=== PATIENT | female | born 1960 | race Caucasian/White ===

== ENCOUNTER 2021-01-15 17:20 | Inpatient (IN) | payer MEDICARE, MEDICAID, SELFPAY ==
[2021-01-15] VITALS (8 sets, daily range): BP systolic 115–151; BP diastolic 50–87; PULSE 84–108; RESP 16–24; TEMP 37.1–38.8; O2SAT 82–100; BMI 39.1
--- NOTE | 2021-01-15 17:53 | XRR_ITS ---
PROCEDURE INFORMATION: Exam: XR Chest Exam date and time: 01/15/2021 5:53 PM Age: 60 years old Clinical indication: Cough and shortness of breath and other: Chills; Sternal or substernal pain; Prior surgery; Patient HX: Cp, SOB, cough, ex smoker TECHNIQUE: Imaging protocol: XR of the chest. Views: 1 view. COMPARISON: CR Chest 2 views* [id number] 05/05/2018 2:44 PM FINDINGS: Tubes, catheters and devices: There is a right-sided ventriculoperitoneal shunt catheter present. Lungs: Unremarkable. No consolidation. Pleural spaces: Unremarkable. No pleural effusion. No pneumothorax. Heart/Mediastinum: Unremarkable. No cardiomegaly. Bones/joints: Unremarkable. XR/XR chest 1V portable [id number] IMPRESSION: No acute pulmonary disease identified. Radiation Dose CTDIVOL = (mGy): DLP = (mGy-cm)
--- NOTE | 2021-01-15 17:53 | ECG_ITS ---
[facility] Test Date: 2021-01-15 Pat Name: Radha Abarca Department: Room: Gender: Female Feed Mixer: : 1960 Requested By: Juliet Martins Order Number: [id number] John MD: Chloe Leyva M.D. Measurements Intervals [place] Rate: 108 P: 52 [place]: 148 QRS: 83 QRSD: 87 T: 46 QT: 300 QTc: 404 Interpretive Statements SINUS TACHYCARDIA Compared to ECG 01/10/2018 08:39:12 T-wave abnormality no longer present Possible ischemia no longer present Electronically Signed On 01-16-2021 9:35:06 CDT by Chloe Leyva M.D. [id number]
[2021-01-15] MEDS: dexamethasone 10 mg/mL INJ 6 MG IVP (19:02)
[2021-01-15 19:03] LABS: Basophils % 0.2 %; Eosinophils % 0.1 %; Hematocrit 43.7 % (37.0-47.0); Hemoglobin 13.7 g/dL (11.5-15.3); Lymphocytes # 0.3 10^3/uL (0.8-4.8); Lymphocytes % 2.8 %; Mean Corpuscular HGB Conc 31.4 g/dL (30.0-36.0); Mean Corpuscular Hemoglobin 28.8 pg (28.0-34.0); Mean Platelet Volume 12.4 fL (7.4-10.4); Monocytes # 0.1 10^3/uL (0.2-0.9); Monocytes % 1.4 %; Neutrophils # 8.32 10^3/uL (1.8-7.7); Neutrophils % 94.7 %; Nucleated Red Blood Cells % 0 %; Platelet Count 165 10^3/cmm (130-400); Red Blood Count 4.75 10^6/uL (4.1-5.3); Red Cell Distribution Width 15.2 % (12.1-15.1); White Blood Count 8.8 10^3/uL (4.0-10.0)
--- NOTE | 2021-01-15 19:03 | CTR_ITS ---
PROCEDURE INFORMATION: Exam: CTA Chest With Contrast Exam date and time: 01/15/2021 7:03 PM Age: 60 years old Clinical indication: Shortness of breath; Chest pressure; Prior surgery; Surgery type: Gb. Shunt; Patient HX: Chest pain with SOB. 80% spo2 on room air. ; Additional info: Evaluate for pe/ pna TECHNIQUE: Imaging protocol: Computed tomographic angiography of the chest with contrast. 3D rendering (Not supervised by radiologist): MIP and/or 3D reconstructed images were created by the technologist. Radiation optimization: All CT scans at this facility use at least one of these dose optimization techniques: automated exposure control; mA and/or kV adjustment per patient size (includes targeted exams where dose is matched to clinical indication); or iterative reconstruction. Contrast material: OMNI 350; Contrast volume: 74 ml; Contrast route: INTRAVENOUS (IV); COMPARISON: CTA Chest-Pulmonary Emb [id number] 01/10/2018 8:04 AM RADIATION DOSE METRICS: Total DLP (mGy-cm): 641.8 FINDINGS: Tubes, catheters and devices: Right chest tunneled ventriculoperitoneal shunt catheter is present. Imaged portion intact. Pulmonary arteries: Normal. No pulmonary emboli. Aorta: Unremarkable. No aortic aneurysm. No aortic dissection. Lungs: Diffuse reticular interstitial lung changes. Negative for focal airspace consolidation. Negative for endobronchial obstruction. No bronchiectasis. No peripheral honeycombing. No significant septal thickening apparent. Pleural spaces: Unremarkable. No pneumothorax. No pleural effusion. Heart: Unremarkable. No cardiomegaly. No pericardial effusion. Lymph nodes: Unremarkable. No enlarged lymph nodes. Gallbladder and bile ducts: Cholecystectomy. Bones/joints: Unremarkable. No acute fracture. Soft tissues: Unremarkable. CT/CT angio chest PE protcl [id number] IMPRESSION: 1. Negative for pulmonary embolism. 2. No focal pneumonia identified. Radiation Dose CTDIVOL = (mGy): DLP = 641.8 (mGy-cm)
--- NOTE | 2021-01-15 19:12 | ED_ITS ---
HPI - General Adult General: Chief complaint: Shortness of Breath/Dyspnea Stated complaint: CHEST PAIN/SHAKING Time Seen by Provider: 01/15/21 18:08 History of Present Illness: HPI narrative: CC: Dyspnea HPI: This is a [60] yo full-code patient w/ hx of COPD BIBA acute dyspnea, fever, malaise since 1pm today. Patient was recently seen for 3 days of dysuria and groin pain and was prescribed ABX for UTI. Endorses chest pressure. Denies any pleuritic chest pain, recent surgery/immobilization/travel, or hematemesis or hx of VTE in the past. En route, patient was satting at 82% on RA with increased work of breath. Onset: 4 hrs ago Duration: ongoing for the last 4 hrs Location: home Severity: moderate Review of Systems Narrative: Constitutional: No fever, no chills. HEENT: No vision changes CV: +chest pressure, no palpitations PULM: +cough, +dyspnea GI: No abdominal pain, no N/V/D. : No dysuria MSKEL: No muscle pain SKIN: No new rashes, no lesions. NEURO: No headache, no focal weakness. HEME: No visible bruises PSYCH: Normal mood PFSH ED PFSH: Medical History (Updated 01/16/21 @ 12:12 by Oscar Frey MD) C. difficile colitis COPD (chronic obstructive pulmonary disease) since 2005 Hypothyroidism Intracranial hemorrhage 2011. Has GRAPE PICKER shunt. 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 Patient does not know when this was placed or indication for the filter. Sleep apnea Surgical History (Updated 01/16/21 @ 12:11 by Oscar Frey MD) History of appendectomy Hx of cholecystectomy S/P IVC filter S/P GRAPE PICKER shunt Social History (Updated 01/16/21 @ 03:04 by Mara Lopez MD) Smoking and tobacco status: heavy tobacco smoker Quit status (tobacco): has quit using tobacco Physical Exam Narrative: EXAM NARRATIVE: Head: Atraumatic Eyes: PERRL, conjunctiva without injection ENT: Mucous membrane moist NECK: Supple without lymphadenopathy LUNGS: Coarse breath sounds b/l, +increased work of breathing CV: Sinus tachycardia ABDOMEN: Soft, nontender in all quadrants EXTREMITY: Normal ROM, no lower extremity swellings, no nerissa sign SKIN: No rash or erythema NEURO: Awake and alert. No focal motor deficits. PSYCH: Normal mood and affect. Course Vital Signs: Vital signs: Vital Signs Temperature 97.7 F 01/16/21 20:00 Pulse Rate 100 01/16/21 20:00 Respiratory Rate 24 H 01/16/21 20:00 Blood Pressure 123/73 01/16/21 20:00 Pulse Oximetry 90 01/16/21 20:00 MDM - General Adult MDM Narrative: Medical decision making narrative: [60]yo with history of COPD presenting to the emergency room with sudden onset of dyspnea since 4 hours ago. On exam, she is noted to be tachypneic, with increased work of breathing and bilateral coarse breath sounds. Patient is febrile here to 100 degrees. Workup: CBC, BMP XR Chest, Troponin, EKG, BNP Intervention: decadron, Albuterol 2.5-5mg q20min x3 OR 15mg/hr. Ipratropium 0.5mg x1. BIPAP for respiratory support if significant increased work of breathing ECG: Nonischemic XR Chest: no findings of focal consolidations Lab findings: CBC and VBG are within normal limits. [9:35PM] On reassessment, the patient received decadron and duo-neb x 3. Patient is placed on bipap per request of RT for transiently increased work of breathing. CT negative for PE. Patient is transitioned for NRB. Will be placed in medsurg. No signs of respiratory decompensation. Disposition: Admission Lab Data: Labs: Lab Results 01/15/21 01/15/21 01/15/21 18:40 18:40 18:40 WBC 8.8 10^3/uL 10^3/ uL (4.0-10.0) RBC 4.75 10^6/uL 10^6 /uL (4.1-5.3) Hgb 13.7 g/dL g/dL (11.5-15.3) Hct 43.7 % % (37.0-47.0) MCV 92.0 fl fl (81-99) MCH 28.8 pg pg (28.0-34.0) MCHC 31.4 g/dL g/dL (30.0-36.0) RDW 15.2 % H % (12.1-15.1) Plt Count 165 10^3/cmm 10^3 /cmm (130-400) MPV 12.4 fL H fL (7.4-10.4) Neut % (Auto) 94.7 % % Lymph % (Auto) 2.8 % % Cannon % (Auto) 1.4 % % Eos % (Auto) 0.1 % % Baso % (Auto) 0.2 % % Neut # (Auto) 8.32 10^3/uL H 10 ^3/uL (1.8-7.7) Lymph # (Auto) 0.3 10^3/uL L 10^ 3/uL (0.8-4.8) Cannon # (Auto) 0.1 10^3/uL L 10^ 3/uL (0.2-0.9) Eos # (Auto) 0.0 10^3/uL 10^3/ uL (0.0-0.8) Baso # (Auto) 0.0 10^3/uL 10^3/ uL (0.0-0.1) Nucleated RBC % (a uto) 0 % % Nucleated RBCs # 0.0 /100WBC /100W BC PT INR APTT Fibrinogen D-Dimer Specimen Type Sample Site ABG pH ABG pCO2 ABG pO2 ABG HCO3 ABG Base Excess [place] Test Hematocrit O2 Delivery Device O2 Liters/Min [employer] Driver ID Sodium Cancelled Potassium Cancelled Chloride Cancelled Carbon Dioxide Cancelled Anion Gap Cancelled BUN Cancelled Creatinine Cancelled GFR Calculation Cancelled Glucose Cancelled Calculated Osmolal ity Cancelled Lactic Acid Lactate Calcium Cancelled Ferritin Cancelled Total Bilirubin Cancelled AST Cancelled ALT Cancelled Alkaline Phosphata se Cancelled Troponin T Baselin e Cancelled Troponin T 120 Min [place] Troponin T C-Reactive Protein Cancelled NT-Pro-B Natriuret Pep Cancelled Total Protein Cancelled Albumin Cancelled Globulin Cancelled Lipase Cancelled Procalcitonin Cancelled Nasal/Oral COVID-1 9 PCR SARS-CoV-2 Ag (Rap id) 01/15/21 01/15/21 01/15/21 18:40 18:40 18:40 WBC RBC Hgb Hct MCV MCH MCHC RDW Plt Count MPV Neut % (Auto) Lymph % (Auto) Cannon % (Auto) Eos % (Auto) Baso % (Auto) Neut # (Auto) Lymph # (Auto) Cannon # (Auto) Eos # (Auto) Baso # (Auto) Nucleated RBC % (a uto) Nucleated RBCs # PT Cancelled INR Cancelled APTT Cancelled Fibrinogen Cancelled D-Dimer Cancelled Specimen Type Sample Site ABG pH ABG pCO2 ABG pO2 ABG HCO3 ABG Base Excess [place] Test Hematocrit O2 Delivery Device O2 Liters/Min [employer] Driver ID Sodium Potassium Chloride Carbon Dioxide Anion Gap BUN Creatinine GFR Calculation Glucose Calculated Osmolal ity Lactic Acid Cancelled Lactate Calcium Ferritin Total Bilirubin AST ALT Alkaline Phosphata se Troponin T Baselin e Troponin T 120 Min [place] Troponin T C-Reactive Protein NT-Pro-B Natriuret Pep Total Protein Albumin Globulin Lipase Procalcitonin Nasal/Oral COVID-1 9 PCR SARS-CoV-2 Ag (Rap id) Negative (Negative) 01/15/21 01/15/21 01/15/21 18:40 19:20 19:20 WBC RBC Hgb Hct MCV MCH MCHC RDW Plt Count MPV Neut % (Auto) Lymph % (Auto) Cannon % (Auto) Eos % (Auto) Baso % (Auto) Neut # (Auto) Lymph # (Auto) Cannon # (Auto) Eos # (Auto) Baso # (Auto) Nucleated RBC % (a uto) Nucleated RBCs # PT INR APTT Fibrinogen D-Dimer Specimen Type Sample Site ABG pH ABG pCO2 ABG pO2 ABG HCO3 ABG Base Excess [place] Test Hematocrit O2 Delivery Device O2 Liters/Min [employer] Driver ID Sodium 141 mmol/L mmol/L (136-145) Potassium 4.2 mmol/L mmol/L (3.5-5.1) Chloride 101 mmol/L mmol/L (98-107) Carbon Dioxide 25 mmol/L mmol/L (22-29) Anion Gap 19.2 H (5-19) BUN 15 mg/dL mg/dL (8-23) Creatinine 0.8 mg/dL mg/dL (0.5-0.9) GFR Calculation 72.7 mL/min L mL/ min (90-130) Glucose 137 mg/dL H mg/dL (65-115) Calculated Osmolal ity 295 mOsm/kg mOsm/ kg (285-295) Lactic Acid Lactate Calcium 9.3 mg/dL mg/dL (8.5-10.5) Ferritin 246 ng/mL H ng/mL (15-150) Total Bilirubin 0.5 mg/dL mg/dL (0.15-1.2) AST 20 U/L U/L (0-32) ALT 18 U/L U/L (0-33) Alkaline Phosphata se 63 IU/L IU/L (35-105) Troponin T Baselin e 6 ng/L ng/L (0-10) Troponin T 120 Min [place] Troponin T C-Reactive Protein 188.3 mg/L H mg/L (0.0-4.9) NT-Pro-B Natriuret Pep 57 pg/mL pg/mL (0-125) Total Protein 6.6 g/dL g/dL (6.6-8.7) Albumin 3.7 g/dL g/dL (3.5-5.2) Globulin 2.9 g/dL g/dL (1.3-4.6) Lipase Procalcitonin 1.94 ng/mL H ng/m L (0-0.5) Nasal/Oral COVID-1 9 PCR Not detected SARS-CoV-2 Ag (Rap id) 01/15/21 01/15/21 01/15/21 19:20 19:20 21:18 WBC RBC Hgb Hct MCV MCH MCHC RDW Plt Count MPV Neut % (Auto) Lymph % (Auto) Cannon % (Auto) Eos % (Auto) Baso % (Auto) Neut # (Auto) Lymph # (Auto) Cannon # (Auto) Eos # (Auto) Baso # (Auto) Nucleated RBC % (a uto) Nucleated RBCs # PT 13.80 SECONDS SEC ONDS (12.1-14.9) INR 1.03 (0.8-1.2) APTT 27.1 SECONDS SECO NDS (23.9-36.7) Fibrinogen D-Dimer Specimen Type Sample Site ABG pH ABG pCO2 ABG pO2 ABG HCO3 ABG Base Excess [place] Test Hematocrit O2 Delivery Device O2 Liters/Min [employer] Driver ID Sodium Potassium Chloride Carbon Dioxide Anion Gap BUN Creatinine GFR Calculation Glucose Calculated Osmolal ity Lactic Acid Lactate 1.3 mmol/L mmol/L (0.5-2.2) Calcium Ferritin Total Bilirubin AST ALT Alkaline Phosphata se Troponin T Baselin e Troponin T 120 Min [place] 6.68 ng/L ng/L (0-10) Delta Troponin T 0.68 ABS# ABS# (0-10) C-Reactive Protein NT-Pro-B Natriuret Pep Total Protein Albumin Globulin Lipase Procalcitonin Nasal/Oral COVID-1 9 PCR SARS-CoV-2 Ag (Rap id) 01/15/21 23:31 WBC RBC Hgb Hct MCV MCH MCHC RDW Plt Count MPV Neut % (Auto) Lymph % (Auto) Cannon % (Auto) Eos % (Auto) Baso % (Auto) Neut # (Auto) Lymph # (Auto) Cannon # (Auto) Eos # (Auto) Baso # (Auto) Nucleated RBC % (a uto) Nucleated RBCs # PT INR APTT Fibrinogen D-Dimer Specimen Type Arterial Sample Site Radial, left ABG pH 7.35 (7.35-7.45) ABG pCO2 49.5 mmHg H mmHg (35-45) ABG pO2 124.0 mmHg H mmHg (80.0-100.0) ABG HCO3 27.3 mmol/L H mmo l/L (22-26) ABG Base Excess 1.0 mmol/L mmol/L (-2.0-2.0) [place] Test Pos Hematocrit 39.9 % % (37-47) O2 Delivery Device Oxy mask O2 Liters/Min 10.0 % % Cement Truck Driver ID [email or web address] Sodium Potassium Chloride Carbon Dioxide Anion Gap BUN Creatinine GFR Calculation Glucose Calculated Osmolal ity Lactic Acid Lactate Calcium Ferritin Total Bilirubin AST ALT Alkaline Phosphata se Troponin T Baselin e Troponin T 120 Min [place] Troponin T C-Reactive Protein NT-Pro-B Natriuret Pep Total Protein Albumin Globulin Lipase Procalcitonin Nasal/Oral COVID-1 9 PCR SARS-CoV-2 Ag (Rap id) Imaging Data^: Other Imaging: Radiologist's impression: [address] [id number] ReportSigned Patient: Radha Abarca #: [id number]: 9Acct#:[id number]/Sex: 60 / FADM Date: 01/15/21Loc: ERRoom/Bed:Attending Dr: Ordering Provider/Ordering MD: Juliet Martins MD Date of Service: 01/15/21 Procedure(s): XR chest 1V portable [id number] Accession Number(s): [id number] Report Number: [id number] PROCEDURE INFORMATION: Exam: XR Chest Exam date and time: 01/15/2021 5:53 PM Age: 60 years old Clinical indication: Cough and shortness of breath and other: Chills; Sternal or substernal pain; Prior surgery; Patient HX: Cp, SOB, cough, ex smoker TECHNIQUE: Imaging protocol: XR of the chest. Views: 1 view. COMPARISON: CR Chest 2 views* [id number] 05/05/2018 2:44 PM FINDINGS: Tubes, catheters and devices: There is a right-sided ventriculoperitoneal shunt catheter present. Lungs: Unremarkable. No consolidation. Pleural spaces: Unremarkable. No pleural effusion. No pneumothorax. Heart/Mediastinum: Unremarkable. No cardiomegaly. Bones/joints: Unremarkable. XR/XR chest 1V portable [id number] IMPRESSION: No acute pulmonary disease identified. Radiation Dose CTDIVOL = (mGy): DLP = (mGy-cm) Dictated By:Adam LandisinSkiara By:Akira Landis Date/Time:01/15/21 185DD/ [address] [id number] Scan ReportSigned Patient: Radha Abarca #: [id number]: 9[facility]#:[id number]/Sex: 60 / FADM Date: 01/15/21Loc: ERRoom/Bed:Attending Dr: Ordering Provider/Ordering MD: Alex Gold MD Date of Service: 01/15/21 Procedure(s): CT angio chest PE protcl [id number] Accession Number(s): [id number] Report Number: [id number] PROCEDURE INFORMATION: Exam: CTA Chest With Contrast Exam date and time: 01/15/2021 7:03 PM Age: 60 years old Clinical indication: Shortness of breath; Chest pressure; Prior surgery; Surgery type: Gb. Shunt; Patient HX: Chest pain with SOB. 80% spo2 on room air. ; Additional info: Evaluate for pe/ pna TECHNIQUE: Imaging protocol: Computed tomographic angiography of the chest with contrast. 3D rendering (Not supervised by radiologist): MIP and/or 3D reconstructed images were created by the technologist. Radiation optimization: All CT scans at this facility use at least one of these dose optimization techniques: automated exposure control; mA and/or kV adjustment per patient size (includes targeted exams where dose is matched to clinical indication); or iterative reconstruction. Contrast material: OMNI 350; Contrast volume: 74 ml; Contrast route: INTRAVENOUS (IV); COMPARISON: CTA Chest-Pulmonary Emb [id number] 01/10/2018 8:04 AM RADIATION DOSE METRICS: Total DLP (mGy-cm): 641.8 FINDINGS: Tubes, catheters and devices: Right chest tunneled ventriculoperitoneal shunt catheter is present. Imaged portion intact. Pulmonary arteries: Normal. No pulmonary emboli. Aorta: Unremarkable. No aortic aneurysm. No aortic dissection. Lungs: Diffuse reticular interstitial lung changes. Negative for focal airspace consolidation. Negative for endobronchial obstruction. No bronchiectasis. No peripheral honeycombing. No significant septal thickening apparent. Pleural spaces: Unremarkable. No pneumothorax. No pleural effusion. Heart: Unremarkable. No cardiomegaly. No pericardial effusion. Lymph nodes: Unremarkable. No enlarged lymph nodes. Gallbladder and bile ducts: Cholecystectomy. Bones/joints: Unremarkable. No acute fracture. Soft tissues: Unremarkable. CT/CT angio chest PE protcl [id number] IMPRESSION: 1. Negative for pulmonary embolism. 2. No focal pneumonia identified. Radiation Dose CTDIVOL = (mGy): DLP = 641.8 (mGy-cm) Dictated By:Akira Landis By:Akira Landis Date/Time:01/15/212119DD/ 02 Discharge Plan Discharge Patient Disposition: Admitted As Inpatient Admit Provider: Mara Lopez Clinical Impression: Hypoxemia, Acute dyspnea Condition: Stable Coding Level of Care Code ED Kiln Stacker for Evens Christie
[2021-01-15 19:28] LABS: SARS Covid-2 Antigen Negative (Negative)
[2021-01-15] MEDS: sodium chloride 0.9% 1,000 ML 999 ML IV (19:51)
[2021-01-15 19:53] LABS: INR 1.03 (0.8-1.2)
[2021-01-15 19:54] LABS: Partial Thromboplastin Time 27.1 SECONDS (23.9-36.7)
[2021-01-15 20:05] LABS: Lactate (Lactic Acid level) 1.3 mmol/L (0.5-2.2); Troponin(5th) Baseline 6 ng/L (0-10)
[2021-01-15 20:16] LABS: NT Pro B Type Natriuretic Pept 57 pg/mL (0-125); Procalcitonin 1.94 ng/mL (0-0.5)
[2021-01-15 20:27] LABS: Alanine Aminotransferase 18 U/L (0-33); Albumin Level 3.7 g/dL (3.5-5.2); Alkaline Phosphatase 63 IU/L (35-105); Anion Gap 19.2 (5-19); Aspartate Amino Transferase 20 U/L (0-32); Blood Urea Nitrogen 15 mg/dL (8-23); C Reactive Protein 188.3 mg/L (0.0-4.9); Calcium 9.3 mg/dL (8.5-10.5); Carbon Dioxide 25 mmol/L (22-29); Chloride 101 mmol/L (98-107); Ferritin 246 ng/mL (15-150); Globulin 2.9 g/dL (1.3-4.6); Glomerular Filtration Rate 72.7 mL/min (90-130); Glucose 137 mg/dL (65-115); Osmolality Calculated 295 mOsm/kg (285-295); Potassium 4.2 mmol/L (3.5-5.1); Sodium 141 mmol/L (136-145); Total Bilirubin 0.5 mg/dL (0.15-1.2); Total Protein 6.6 g/dL (6.6-8.7)
[2021-01-15] MEDS: iohexol 350 mg/mL 100 mL Btl IV (21:11)
[2021-01-15 21:47] LABS: Troponin 5 2HR 6.68 ng/L (0-10); Troponin 5 2HR Delta 0.68 ABS# (0-10)
[2021-01-15 23:42] LABS: ABG PCO2 49.5 mmHg (35-45); ABG PH Result 7.35 (7.35-7.45); Arterial Blood Gas Hematocrit 39.9 % (37-47); Blood Gas Allen Test Pos; Blood Gas Sample Type Arterial; HCO3 ABG 27.3 mmol/L (22-26)
[2021-01-15 23:43] LABS: Blood Gas Sample Site Radial, left; Oxygen Device OXY MASK
--- NOTE | 2021-01-15 23:53 | ECG_ITS ---
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 Measurements Intervals [place] Rate: 95 P: 70 [place]: 169 QRS: 82 QRSD: 97 T: 52 QT: 339 QTc: 428 Interpretive Statements SINUS RHYTHM Compared to ECG 01/15/2021 18:17:02 Sinus tachycardia no longer present Electronically Signed On 01-16-2021 9:40:53 CDT by Chloe Leyva M.D. [id number]
--- NOTE | 2021-01-15 23:57 | CTR_ITS ---
PROCEDURE INFORMATION: Exam: CT Abdomen And Pelvis Without Contrast Exam date and time: 01/15/2021 11:57 PM Age: 60 years old Clinical indication: Nausea and vomiting; Abdominal pain; Localized; Prior surgery; Surgery type: Appy. Gb. ; Patient HX: Left side abd pain with n/v. ; Additional info: Abdominal pain, vomiting, left flank tenderness TECHNIQUE: Imaging protocol: Computed tomography of the abdomen and pelvis without contrast. Radiation optimization: All CT scans at this facility use at least one of these dose optimization techniques: automated exposure control; mA and/or kV adjustment per patient size (includes targeted exams where dose is matched to clinical indication); or iterative reconstruction. COMPARISON: CR Hip 2-3v RIGHT wwo Pelv* [id number] 10/19/2016 12:03 PM RADIATION DOSE METRICS: Total DLP (mGy-cm): 1809.53 FINDINGS: Tubes, catheters and devices: Tunneled ventriculoperitoneal shunt catheter terminates in the midline of the pelvis. Liver: Normal. No mass. Gallbladder and bile ducts: Cholecystectomy. Nondilated biliary system. Pancreas: Normal. No ductal dilation. Spleen: Normal. No splenomegaly. Adrenal glands: Normal. No mass. Kidneys and ureters: Normal. No hydronephrosis. Stomach and bowel: Extensive inflammatory bowel wall thickening changes noted focally in the proximal sigmoid colon. Diverticulosis. Pericolonic fat stranding. Appendix: No evidence of appendicitis. Intraperitoneal space: Unremarkable. No free air. No significant fluid collection. Vasculature: Infrarenal IVC filter is present. Filter struts perforation through the IVC wall. One of the struts may be in contact with the anterior wall of the distal abdominal aorta. Abdominal aorta is nonaneurysmal with scattered atherosclerotic plaque. Lymph nodes: Unremarkable. No enlarged lymph nodes. Urinary bladder: Unremarkable as visualized. Reproductive: Unremarkable as visualized. Bones/joints: Old, healed right posterior rib fracture deformities. Soft tissues: Unremarkable. CT/CT kidney stone [id number] IMPRESSION: Inflammatory or infectious disease process in the proximal sigmoid colon. Favor sequela of acute diverticulitis. COMMENTS: For patients with an IVC filter, recommend assessment for a management plan for the patient's IVC filter. If there is no established management plan, recommend referral to an interventional clinician on a nonemergent basis for evaluation. Radiation Dose CTDIVOL = (mGy): DLP = 1809.53 (mGy-cm)
[2021-01-16] VITALS (12 sets, daily range): BP systolic 108–123; BP diastolic 65–88; PULSE 86–115; RESP 16–24; TEMP 36.5–36.9; O2SAT 85–98
--- NOTE | 2021-01-16 02:39 | PM.HP ---
Providers/Chief Complaint Admitting Physician: Mara Lopez MD Primary Care Provider: Vel Powell MD Chief Complaint: CHEST PAIN/SHAKING History of Present Illness Radha Abarca is a 60 year old female With a past medical history of COPD, obstructive sleep apnea, on CPAP, uses 2 L/min chronically at nighttime, intermittently during the day uses as needed oxygen if she feels short of breath, reports O2 sats dropped down in the 80s upon exertion. She presents to the emergency room today with chief complaints of abdominal pain. She states that the pain started in the suprapubic area this morning, radiated onto the left side. Denies any dysuria, interruption in urinary stream. Visited with her primary care physician this afternoon, dipstick UA was reportedly normal, culture was sent and she was given a prescription for Bactrim. Upon returning home she continued to experience abdominal pain and had 3-4 episodes of vomiting. Thereafter also developed chest discomfort radiating into her back and shoulder blades which made her concerned and she was brought to the emergency room. Upon arrival oxygen saturation was noted to be 82% on room air, CTA of the chest was performed which was negative for PE. She was febrile with fever to 102 Fahrenheit at home, reports being febrile at home also earlier today. Has a past medical history of C. difficile. Currently denies any diarrhea. She has been more recently constipated and has been using laxatives. Denies any cough, expectoration. Thus far she has received tylenol and dexamethasone 6 mg IV in ER for presumed Covid. CT chest without any consolidation. Patient is vaccinated with 2 dose moderna mRNA series completed May 2020. An abdominal CT was performed later during the course of my assessment on which patient is found to have evidence of sigmoid diverticulitis. Incidentally noted to also have perforation of the IVC wall with IVC filter, discussed with radiologist as being a nonacute finding. No compromise of the aorta. Review of Systems General: Reports: 10 or more systems reviewed and unremarkable except in HPI and below Const: Reports: fever(s) and chills; Denies: body aches Eyes: Denies: change in vision, blurry vision or photophobia ENMT: Reports: hoarseness; Denies: throat pain, enlarged tonsils, odynophagia or nasal congestion Card: Denies: chest pain, palpitations, irregular heart rhythm, edema, swelling of feet/ankles, lightheadedness, pre-syncope, dyspnea on exertion or orthopnea Resp: Denies: dyspnea, productive cough, non-productive cough, wheezing, stridor, pain on inspiration, change in phlegm color, hemoptysis or chest congestion GI: Reports: abdominal pain, nausea, vomiting and GI cramping; Denies: hematemesis, coffee ground emesis, dysphagia, heartburn, diarrhea, constipation, change in stool character, hematochezia or melena : Denies: flank pain, difficulty voiding, dysuria, urinary frequency, urinary urgency, urinary hesitancy or hematuria Musc: Denies: neck pain, back pain, extremity pain, joint swelling, joint warmth or deformity Neuro: Denies: headache(s), numbness in extremities, weakness in extremities, sensory changes, difficulty walking, frequent falls, dizziness, vertigo, behavioral changes, Slurred speech present or seizure-like activity Psych: Denies: anxiety, depression, suicidal ideation or homicidal ideation Endo: Denies: polyuria, polydipsia, tired all the time, cold intolerance or hot flashes Jerry/Lymph: Denies: easy bruising or easy bleeding Medications/Allergies Allergies Allergy/AdvReac Type Severity Reaction Status Date / Time acetaminophen [From Tylenol] Allergy ALGY-Hives Verified 01/16/21 03:12 PFSH Acute PFSH: Medical History (Updated 01/16/21 @ 03:11 by Mara Lopez MD) COPD (chronic obstructive pulmonary disease) since 2005 Hypothyroidism Intracranial hemorrhage 2011. Has ASSEMBLER BILLIARD TABLE shunt. 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 Patient does not know when this was placed or indication for the filter. Sleep apnea Surgical History (Updated 01/16/21 @ 03:04 by Mara Lopez MD) History of appendectomy Hx of cholecystectomy Social History (Updated 01/16/21 @ 03:04 by Mara Lopez MD) Smoking and tobacco status: heavy tobacco smoker Quit status (tobacco): has quit using tobacco Vitals/I&O/Wt Last Vital Signs Temp 98.8 F 01/15/21 22:58 Pulse 86 01/15/21 23:00 Resp 18 01/15/21 22:58 BP 122/70 01/15/21 23:00 Pulse Ox 99 01/15/21 23:00 Weight last 48 hrs Weight 113.398 kg Physical Exam Narrative: EXAM NARRATIVE: General: No acute distress, AO x3, clothes stained with vomitus HEENT: PERRLA, pupils bilaterally equal and reactive, pallors not present Chest: Normal vesicular breath sounds, no added sounds, equal good air entry bilaterally CVS: S1-S2 regular, no murmurs, no tachycardia, no gallops, no rubs Abdomen: Soft, non distended, TTP left lower quadrant and suprapubic area Neuro: No focal deficits, no facial deformity, AO x3, power 5/5 in all limbs EXt: no edema, clubbing or cyanosis Data : 01/15/21 18:40 01/15/21 19:20 Other Labs: 01/15/21 23:31 ABG pH 7.35 ABG pCO2 49.5 H ABG pO2 124.0 H ABG HCO3 27.3 H ABG Base Excess 1.0 Attestation for Other Data: I personally reviewed and interpreted the following: Other data: Laboratory Results WBC 8.8 10^3/uL (4.0-10.0) 01/15/21 18:40 RBC 4.75 10^6/uL (4.1-5.3) 01/15/21 18:40 Hgb 13.7 g/dL (11.5-15.3) 01/15/21 18:40 Hct 43.7 % (37.0-47.0) 01/15/21 18:40 MCV 92.0 fl (81-99) 01/15/21 18:40 MCH 28.8 pg (28.0-34.0) 01/15/21 18:40 MCHC 31.4 g/dL (30.0-36.0) 01/15/21 18:40 RDW 15.2 % (12.1-15.1) H 01/15/21 18:40 Plt Count 165 10^3/cmm (130-400) 01/15/21 18:40 MPV 12.4 fL (7.4-10.4) H 01/15/21 18:40 Neut % (Auto) 94.7 % 01/15/21 18:40 Lymph % (Auto) 2.8 % 01/15/21 18:40 Harnett % (Auto) 1.4 % 01/15/21 18:40 Eos % (Auto) 0.1 % 01/15/21 18:40 Baso % (Auto) 0.2 % 01/15/21 18:40 Neut # (Auto) 8.32 10^3/uL (1.8-7.7) H 01/15/21 18:40 Lymph # (Auto) 0.3 10^3/uL (0.8-4.8) L 01/15/21 18:40 [place]ett # (Auto) 0.1 10^3/uL (0.2-0.9) L 01/15/21 18:40 Eos # (Auto) 0.0 10^3/uL (0.0-0.8) 01/15/21 18:40 Baso # (Auto) 0.0 10^3/uL (0.0-0.1) 01/15/21 18:40 Nucleated RBC % (auto) 0 % 01/15/21 18:40 Nucleated RBCs # 0.0 /100WBC 01/15/21 18:40 PT 13.80 SECONDS (12.1-14.9) 01/15/21 19:20 INR 1.03 (0.8-1.2) 01/15/21 19:20 APTT 27.1 SECONDS (23.9-36.7) 01/15/21 19:20 Fibrinogen Cancelled 01/15/21 18:40 D-Dimer Cancelled 01/15/21 18:40 Specimen Type Arterial 01/15/21 23:31 Sample Site Radial, left 01/15/21 23:31 ABG pH 7.35 (7.35-7.45) 01/15/21 23:31 ABG pCO2 49.5 mmHg (35-45) H 01/15/21 23:31 ABG pO2 124.0 mmHg (80.0-100.0) H 01/15/21 23:31 ABG HCO3 27.3 mmol/L (22-26) H 01/15/21 23:31 ABG Base Excess 1.0 mmol/L (-2.0-2.0) 01/15/21 23:31 [place] Test Pos 01/15/21 23:31 Hematocrit 39.9 % (37-47) 01/15/21 23:31 O2 Delivery Device Oxy mask 01/15/21 23:31 O2 Liters/Min 10.0 % 01/15/21 23:31 Golf Caddy ID [email or web address] 01/15/21 23:31 Sodium 141 mmol/L (136-145) 01/15/21 19:20 Potassium 4.2 mmol/L (3.5-5.1) 01/15/21 19:20 Chloride 101 mmol/L (98-107) 01/15/21 19:20 Carbon Dioxide 25 mmol/L (22-29) 01/15/21 19:20 Anion Gap 19.2 (5-19) H 01/15/21 19:20 BUN 15 mg/dL (8-23) 01/15/21 19:20 Creatinine 0.8 mg/dL (0.5-0.9) 01/15/21 19:20 GFR Calculation 72.7 mL/min (90-130) L 01/15/21 19:20 Glucose 137 mg/dL (65-115) H 01/15/21 19:20 Calculated Osmolality 295 mOsm/kg (285-295) 01/15/21 19:20 Lactic Acid Cancelled 01/15/21 18:40 Lactate 1.3 mmol/L (0.5-2.2) 01/15/21 19:20 Calcium 9.3 mg/dL (8.5-10.5) 01/15/21 19:20 Ferritin 246 ng/mL (15-150) H 01/15/21 19:20 Total Bilirubin 0.5 mg/dL (0.15-1.2) 01/15/21 19:20 AST 20 U/L (0-32) 01/15/21 19:20 ALT 18 U/L (0-33) 01/15/21 19:20 Alkaline Phosphatase 63 IU/L (35-105) 01/15/21 19:20 Troponin T Baseline 6 ng/L (0-10) 01/15/21 19:20 Troponin T 120 Minute 6.68 ng/L (0-10) 01/15/21 21:18 Delta Troponin T 0.68 ABS# (0-10) 01/15/21 21:18 C-Reactive Protein 188.3 mg/L (0.0-4.9) H 01/15/21 19:20 NT-Pro-B Natriuret Pep 57 pg/mL (0-125) 01/15/21 19:20 Total Protein 6.6 g/dL (6.6-8.7) 01/15/21 19:20 Albumin 3.7 g/dL (3.5-5.2) 01/15/21 19:20 Globulin 2.9 g/dL (1.3-4.6) 01/15/21 19:20 Lipase Cancelled 01/15/21 18:40 Procalcitonin 1.94 ng/mL (0-0.5) H 01/15/21 19:20 SARS-CoV-2 Ag (Rapid) Negative (Negative) 01/15/21 18:40 Impressions Chest X-Ray 01/15/21 17:53 IMPRESSION: No acute pulmonary disease identified. Radiation Dose CTDIVOL = (mGy): DLP = (mGy-cm) Chest CTA 01/15/21 19:03 IMPRESSION: 1. Negative for pulmonary embolism. 2. No focal pneumonia identified. Radiation Dose CTDIVOL = (mGy): DLP = 641.8 (mGy-cm) Abdomen/Pelvis CT 01/15/21 23:57 IMPRESSION: Inflammatory or infectious disease process in the proximal sigmoid colon. Favor sequela of acute diverticulitis. COMMENTS: For patients with an IVC filter, recommend assessment for a management plan for the patient's IVC filter. If there is no established management plan, recommend referral to an interventional clinician on a nonemergent basis for evaluation. Radiation Dose CTDIVOL = (mGy): DLP = 1809.53 (mGy-cm) ADDENDUM: 01/16/21 0239 01/16/2021 2:35 AM CDT ADDENDUM: I personally discussed Dr. Lopez's concerns about the IVC filter and adjacent aorta with her at the time of this addendum. I mentioned that there is no current acute disease in the area and that it is common for the struts of IVC filters to extend through the IVC bobby. Radiation Dose CTDIVOL = (mGy): DLP = 1809.53 (mGy-cm) A&P Assessment and plan (1) Sepsis: Meet sepsis criteria by way of fever, tachycardia, source of infection with diverticulitis. Start patient on empiric antibiotic coverage with piperacillin tazobactam. Start IV fluids normal saline at 75 cc an hour. Check blood culture Status: Acute Qualifiers: Sepsis type: sepsis due to unspecified organism Sepsis acute organ dysfunction status: without acute organ dysfunction Qualified Code(s): A41.9 - Sepsis, unspecified organism (2) Sigmoid diverticulitis: Sepsis likely as a result of sigmoid diverticulitis as seen on CT, compatible clinical picture with pain over the left lower quadrant and acute onset of symptoms. Currently denies any diarrhea, has been constipated the past few days. Currently passing flatus. No reports of blood in stool. Empiric antibiotic coverage as above. Bowel rest with n.p.o., advance diet in am to clears if able to tolerate. pain control with prn morphine zofran for vomiting Status: Acute (3) Chronic hypoxemic respiratory failure: Upon arrival noted to have chest pain and Sp02 82% EKG series without acute ST-T wave chnages, trop negative at baseline and 2 hrs, unlikely ACS CTA chest negative for PE Patient reports a h/o COPD and chronic hypoxia, uses 2lpm supplemental 02 at night in addition to as needed oxygen in day time for symptomatic dyspnea. At home 02 sat drops to 80s with exertion. Her hypoxia today appears to be related to COPD and a chronic process. ABG with p02 124, no respiratory acidosis. No evidence of consolidation on CT chest. No signs of pneumonitis. COVID PCR pending, given no involvement of lower respiratory tract and alternate explanation for symptoms, hold off on presumptive steroids. Status: Acute (4) COPD (chronic obstructive pulmonary disease): not currently exacerbated. duoneb q6h sheduled nebulization Status: Acute Qualifiers: COPD type: unspecified COPD Qualified Code(s): J44.9 - Chronic obstructive pulmonary disease, unspecified Additional A&P Information Incidental note made on CT abdomen for erosion of IVC filter struts through IVC wall, nearly touching the aorta. No extravasation of blood. No aortic compromise. Discussed with radiologist that no emergent process identified. WIll eventually need referral to vascular surgery for removal. Patient was not aware she had an IVC filter, does not know indication for the same. 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
[2021-01-16] MEDS: enoxaparin 40 mg/0.4 mL Syringe SUBCUT (03:38)
[2021-01-16] MEDS: sodium chloride 0.9% 1,000 ML 75 ML IV ×2 (03:38→15:54)
[2021-01-16] MEDS: piperacillin-tazobactam 3.375 GM in sodium chloride 0.9% (plus) 50 ML IV ×3 (03:40→18:50)
[2021-01-16 06:38] LABS: Basophils % 0.2 %; Eosinophils % 0.1 %; Hemoglobin 12.6 g/dL (11.5-15.3); Lymphocytes # 0.2 10^3/uL (0.8-4.8); Lymphocytes % 1.9 %; Mean Corpuscular HGB Conc 30.7 g/dL (30.0-36.0); Mean Corpuscular Hemoglobin 29.2 pg (28.0-34.0); Mean Corpuscular Volume 94.9 fl (81-99); Mean Platelet Volume 12.4 fL (7.4-10.4); Monocytes # 0.3 10^3/uL (0.2-0.9); Monocytes % 2.7 %; Neutrophils # 10.01 10^3/uL (1.8-7.7); Neutrophils % 94.3 %; Nucleated Red Blood Cells % 0 %; Platelet Count 149 10^3/cmm (130-400); Red Blood Count 4.32 10^6/uL (4.1-5.3); White Blood Count 10.6 10^3/uL (4.0-10.0)
[2021-01-16 07:00] LABS: Alanine Aminotransferase 16 U/L (0-33); Albumin Level 3.3 g/dL (3.5-5.2); Alkaline Phosphatase 52 IU/L (35-105); Anion Gap 16.2 (5-19); Aspartate Amino Transferase 16 U/L (0-32); Blood Urea Nitrogen 16 mg/dL (8-23); Calcium 8.8 mg/dL (8.5-10.5); Carbon Dioxide 24 mmol/L (22-29); Chloride 101 mmol/L (98-107); Globulin 3.7 g/dL (1.3-4.6); Glomerular Filtration Rate 56.2 mL/min (90-130); Glucose 149 mg/dL (65-115); Magnesium 1.8 mg/dL (1.7-2.3); Osmolality Calculated 288 mOsm/kg (285-295); Potassium 4.2 mmol/L (3.5-5.1); Sodium 137 mmol/L (136-145); Total Bilirubin 0.4 mg/dL (0.15-1.2)
[2021-01-16] MEDS: morphine 4 mg/mL SDV 1 mL 2 MG IVP ×2 (08:13→22:56)
[2021-01-16] MEDS: pantoprazole DR 40 mg Tablet PO (08:14)
--- NOTE | 2021-01-16 09:44 | USCV_ITS ---
Tevin Radha Age: 60 Gender: F : 1960 Exam Date: 01/16/2021 14:03 Ordering Phys: Oscar Frey MD Technologist: Exam Location: [facility] [place] Indication: SOB CP BP: 130 / 75 HR: 100 Rhythm: Sinus Technical Quality: Adequate MEASUREMENTS (Male / Female) Normal Values 2D ECHO LV Diastolic Diameter PLAX 4.1 cm 4.2 - 5.9 / 3.9 - 5.3 cm LV Systolic Diameter PLAX 3.0 cm IVS Diastolic Thickness 1.2 cm 0.6 - 1.0 / 0.6 - 0.9 cm IVS Systolic Thickness 1.5 cm LVPW Diastolic Thickness 1.1 cm 0.6 - 1.0 / 0.6 - 0.9 cm LVPW Systolic Thickness 1.3 cm LVOT Diameter 2.0 cm LV Ejection Fraction 2D Teich 48.8 % LV Ejection Fraction MOD 2C 68.6 % LV Ejection Fraction 2C AL 69.3 % LA Diameter 3.6 cm LA Width 3.8 cm LA Height 5.0 cm RA Width 3.5 cm RA Height 4.4 cm DOPPLER AV Peak Velocity 132.0 cm/s LVOT Peak Velocity 101.0 cm/s AV Area Cont Eq vti 2.6 cm squared AV Area Cont Eq pk 2.5 cm squared MV Area PHT 5.0 cm squared Mitral E to A Ratio 0.9 MV E' Velocity 93.0 cm/s TR Peak Velocity 226.7 cm/s TR Peak Gradient 20.6 mmHg TV Peak E Velocity 98.0 cm/s Right Atrial Pressure 3.0 mmHg Pulmonary Artery Systolic Pressu 23.6 mmHg FINDINGS Left Ventricle Normal left ventricular size. LV systolic function is normal with EF of 55-60%. no regional wall motion abnormalities. Grade 1 diastolic dysfunction Right Ventricle The right ventricle is normal in size and function. Right Atrium The right atrium is normal in size. Left Atrium The left atrium is normal in size. Mitral Valve Structurally normal mitral valve without significant stenosis or prolapse. There is no mitral regurgitation. Aortic Valve Structurally normal aortic valve without significant sclerosis or stenosis. There is no aortic regurgitation. Tricuspid Valve Structurally normal tricuspid valve without significant stenosis or regurgitation. Insufficient TR jet to calculate RVSP Pulmonic Valve Not well visualized Pericardium Normal pericardium without effusion. Aorta Normal ascending aorta dimension. CONCLUSIONS LV systolic function is normal with EF of 55-60% Grade 1 diastolic dysfunction No significant valvular heart disease noted Compared to prior echocardiogram from 2019, no significant changes are noted Car Hayes MD (Electronically Signed) Final Date: 17 January 2021 12:58 S
--- NOTE | 2021-01-16 10:41 | PC.PHAR ---
pt states she takes care of her own medications
--- NOTE | 2021-01-16 11:16 | PC.CHAP ---
Pastoral Care Encounter/Spiritual Assessment Type of Contact [] Declined mandarin chinese teacher visit [] Patient/Family/Request visit [] Outpatient visit [] Follow-up visit [] Physician referral [] Code/Alert [x] Routine visit [] Staff referral [] Actively dying [] Patient sleeping [] Family support [] [] Out of room [] Palliative care [] [] Receiving care in room [] Pre-surgical visit [] Trauma [] Long length of stay [] ICU visit [x] Other: isolated Relational/Emotional Strength [] Patient feels connected with others/family/visitors/staff [] Distress [] Loneliness/isolation [] Abandonment Spirituality of Patient [] Person of Millie [] Attends Druze of their Millie [] Believes in Prayer [] Reads Bible or Bahai materials [] There are Spiritual issues to be addressed Bench Worker Hollow Handle Interventions [x] Prayer [] Active listening [] Non-anxious presence [] Spiritual/emotional support [] Crisis/trauma care [] Spiritual counseling [] Bereavement support [] Provided bereavement packet [] Provided Bible/devotional materials [] Provided toy/stuffed animal, coloring book to patient or family member [] Provided Communion [] Anointing/[place] [] Salvation [x] Completed spiritual assessment [] Other: Impact on Illness or Injury [] Angry [] Fearful [] Anxious [] Often cries [] Exhaustion [] Unable to work [] Unable to attend sikhism [] Unable to walk/stand [] Unable to read [] Unable to drive [] Unable to eat/drink [] Unable to sleep [] Unable to be with family [] Patient intubated [] Other: Summary Time spent with patient
--- NOTE | 2021-01-16 12:08 | PM.PN ---
Subjective Subjective: Interval history: Admitted overnight. On examination lying comfortably in bed, sleeping. Wakes up to verbal stimulus. At start on exam on 5 L saturating 97%. During my communication with the patient over 15 minutes turned down to 2 L saturating 95%. Denies any nausea vomiting, headache, difficulty in breathing currently. States at home she has been having abdominal pain for 1 week and had vomiting vomiting and belly pain followed by back pain yesterday. Gives history of brain bleed, C. difficile, CHIEF CLINICAL DIETITIAN shunt. Not aware of DVT or pulmonary embolism or history of IVC filter placement. Vitals/I&O/Wt Last Vital Signs Temp 98.2 F 01/16/21 11:18 Pulse 95 01/16/21 11:18 Resp 16 01/16/21 11:18 BP 122/79 01/16/21 11:18 Pulse Ox 95 01/16/21 11:18 01/15/21 01/16/21 01/16/21 22:59 06:59 14:59 Intake Total 1000 / 1000 50 / 50 Balance 1000 / 1000 50 / 50 Weight last 48 hrs Weight 113.398 kg Data : 01/16/21 05:48 01/16/21 05:48 Micro: Microbiology 01/16/21 05:48 Blood Culture - Preliminary Blood SPECIMEN COLLECTED A&P Assessment and plan (1) Sepsis: Present on admission. Meet sepsis criteria by way of fever, tachycardia, source of infection with diverticulitis. Check stool studies. Will follow blood cultures. Continue with empiric Zosyn. IV fluids normal saline at 75 cc an hour. Status: Acute Qualifiers: Sepsis type: sepsis due to unspecified organism Sepsis acute organ dysfunction status: without acute organ dysfunction Qualified Code(s): A41.9 - Sepsis, unspecified organism (2) Sigmoid diverticulitis: Sepsis likely as a result of sigmoid diverticulitis as seen on CT, compatible clinical picture with pain over the left lower quadrant and acute onset of symptoms. Currently denies any diarrhea, has been constipated the past few days. Currently passing flatus. No reports of blood in stool. Morphine as needed for pain. Zofran as needed for vomiting. Start on mechanical soft diet. Status: Acute (3) Chronic hypoxemic respiratory failure: Chronically on 3 to 3 L of oxygen supplementation with CPAP at night. History of COPD. Ipratropium, Xopenex every 6 hours, budesonide twice daily. COVID-19 PCR sent out from ER. Isolation precautions. No signs of pneumonia or consolidation on chest imaging. Status: Acute (4) COPD (chronic obstructive pulmonary disease): not currently exacerbated. 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 No extravasation. Hemodynamically stable. Check lower limb Dopplers. Patient will need to follow-up with vascular surgery as an outpatient for retrieval. Patient has been made aware and verbalizes understanding. Status: Acute Additional A&P Information Restart other chronic medication including bupropion 75 mg twice daily as needed, oxybutynin, sertraline. Hypertension: Goal blood pressure less than 140/90 mmHg. Restart home dose of metoprolol. DVT ppx: lovenox Full code Attestations Medical Necessity Statement*: Requires further hospitalization for management of sepsis secondary to sigmoid diverticulitis Time Spent in Patient Care: Greater than 35 minutes (>than 50% of time spent in counselling and/or direct pt care on unit). 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
--- NOTE | 2021-01-16 12:14 | USCV_ITS ---
Radha Abarca Age: 60 Gender: F : 1960 Exam Date: 01/16/2021 14:16 Ordering Phys: Oscar Frey MD Technologist: Exam Location: [facility] – [place] Indication: SWELLING HISTORY: Edema. PROCEDURES: The venous duplex Doppler examination of both lower extremities was performed in the standard fashion. The following venous structures were evaluated: common femoral vein, profunda vein, proximal portion of the greater saphenous vein, superficial femoral vein, and the popliteal vein. In addition, the posterior tibial and peroneal trunk were evaluated. Bilaterally, the common femoral, superficial femoral, profunda femoral, popliteal, posterior tibial, greater saphenous veins, and the peroneal trunk were identified and interrogated in the standard fashion. These veins were found to be easily compressible with spontaneous blood flow. No evidence of insufficiency or thrombus noted. FINDINGS: Normal 2-D Doppler and augmentation and compressibility throughout the lower extremity venous structures. Additional imaging through the proximal calf veins also reveals no thrombus. Limited evaluation of the greater saphenous vein is patent with no thrombus.. CONCLUSIONS No evidence of right lower extremity DVT. No evidence of left lower extremity DVT. Darwin Garcia MD (Electronically Signed) Final Date: 16 January 2021 15:09 S
--- NOTE | 2021-01-16 14:22 | PC.RESP ---
SMOKING CESSATION AND PULMONARY REHAB INFORMATION SENT TO PATIENT.
[2021-01-16] MEDS: ipratropium 0.5 mg/2.5 mL Neb INHALATION ×2 (15:04→21:42)
[2021-01-16] MEDS: levalbuterol 0.63 mg/3 mL Neb INHALATION ×2 (15:04→21:42)
[2021-01-16 16:31] LABS: Add Urine Microscopic? NO; Charge for UA Resulting for Rev
[2021-01-16 16:46] LABS: Bilirubin Urine Neg (Negative); Blood Urine Neg (Negative); Glucose Urine UA Norm (Normal); Ketones Urine Negative (Negative); Leukocyte Esterase Urine Negative (Negative); Nitrate Urine Negative (Negative); Protein Urine Neg (Negative); Urine Appearance Clear (CLEAR); Urine Color Yellow (Yellow); Urobilinogen Urine Norm (Negative); pH Urine 6 (5-7)
[2021-01-16 16:48] LABS: Coronavirus Test Green County Not Detected
[2021-01-16] MEDS: metoprolol tartrate 50 mg Tablet PO (20:25)
[2021-01-16] MEDS: sertraline 100 mg Tablet PO (20:25)
[2021-01-16] MEDS: oxybutynin 5 mg Tablet PO (20:25)
[2021-01-16] MEDS: LORazepam 1 mg Tablet PO (20:25)
[2021-01-17] VITALS (13 sets, daily range): BP systolic 89–129; BP diastolic 53–72; PULSE 75–89; RESP 16–24; TEMP 36.6–36.8; O2SAT 89–98
[2021-01-17] MEDS: enoxaparin 40 mg/0.4 mL Syringe SUBCUT (01:31)
[2021-01-17] MEDS: piperacillin-tazobactam 3.375 GM in sodium chloride 0.9% (plus) 50 ML IV ×3 (03:09→18:02)
[2021-01-17] MEDS: levalbuterol 0.63 mg/3 mL Neb INHALATION ×4 (03:40→20:06)
[2021-01-17] MEDS: ipratropium 0.5 mg/2.5 mL Neb INHALATION ×4 (03:40→20:06)
[2021-01-17 05:05] LABS: Basophils % 0.4 %; Eosinophils # 0.4 10^3/uL (0.0-0.8); Eosinophils % 4.8 %; Hematocrit 37.9 % (37.0-47.0); Hemoglobin 11.9 g/dL (11.5-15.3); Lymphocytes # 0.6 10^3/uL (0.8-4.8); Lymphocytes % 7.6 %; Mean Corpuscular HGB Conc 31.4 g/dL (30.0-36.0); Mean Corpuscular Hemoglobin 29.2 pg (28.0-34.0); Mean Corpuscular Volume 93.1 fl (81-99); Mean Platelet Volume 12.6 fL (7.4-10.4); Monocytes # 0.4 10^3/uL (0.2-0.9); Neutrophils # 6.29 10^3/uL (1.8-7.7); Neutrophils % 81.4 %; Nucleated Red Blood Cells % 0 %; Platelet Count 142 10^3/cmm (130-400); Red Blood Count 4.07 10^6/uL (4.1-5.3); White Blood Count 7.7 10^3/uL (4.0-10.0)
[2021-01-17] MEDS: sodium chloride 0.9% 1,000 ML 75 ML IV ×2 (05:05→21:06)
[2021-01-17 05:39] LABS: Albumin Level 3.1 g/dL (3.5-5.2); Alkaline Phosphatase 44 IU/L (35-105); Blood Urea Nitrogen 14 mg/dL (8-23); Calcium 8.3 mg/dL (8.5-10.5); Carbon Dioxide 24 mmol/L (22-29); Chloride 106 mmol/L (98-107); Globulin 3.4 g/dL (1.3-4.6); Glomerular Filtration Rate 72.7 mL/min (90-130); Glucose 102 mg/dL (65-115); Osmolality Calculated 287 mOsm/kg (285-295); Sodium 138 mmol/L (136-145); Total Bilirubin 0.2 mg/dL (0.15-1.2); Total Protein 6.5 g/dL (6.6-8.7)
[2021-01-17 05:50] LABS: Alanine Aminotransferase 15 U/L (0-33); Anion Gap 12.7 (5-19); Aspartate Amino Transferase 18 U/L (0-32); Potassium 4.7 mmol/L (3.5-5.1)
[2021-01-17] MEDS: levothyroxine 25 mcg Tablet PO (06:14)
[2021-01-17] MEDS: pantoprazole DR 40 mg Tablet PO (09:34)
[2021-01-17] MEDS: loratadine 10 mg Tablet PO (09:34)
[2021-01-17] MEDS: metoprolol tartrate 50 mg Tablet PO ×2 (09:43→21:06)
[2021-01-17] MEDS: magnesium hydroxide 30 mL UDC PO (12:28)
--- NOTE | 2021-01-17 12:49 | ECG_ITS ---
[facility] Test Date: 2021-01-17 Pat Name: Radha Abarca Department: Room: 257 Gender: Female Fugitive Detective: : 1960 Requested By: Oscar Frey Order Number: [id number] John MD: Car Hayes M.D. Measurements Intervals [place] Rate: 83 P: 68 [place]: 175 QRS: 88 QRSD: 91 T: 51 QT: 336 QTc: 396 Interpretive Statements SINUS RHYTHM LOW QRS VOLTAGE IN PRECORDIAL LEADS [QRS DEFLECTION < 1.0 mV IN CHEST LEADS] Compared to ECG 01/15/2021 23:54:07 Low QRS voltage now present Electronically Signed On 01-17-2021 21:28:02 CDT by Car Hayes M.D. [id number]
[2021-01-17 13:41] LABS: Troponin(5th) Baseline 6 ng/L (0-10)
--- NOTE | 2021-01-17 14:54 | P.PN_ITS ---
Subjective Subjective: Interval history: No acute events overnight. On examination lying comfortably in bed on 2 L oxygen supplementation. Denies any nausea vomiting, headache. States belly pain is little better. Has not had a bowel movement. Vitals/I&O/Wt Last Vital Signs Temp 97.9 F 01/17/21 11:44 Pulse 75 01/17/21 11:44 Resp 18 01/17/21 11:44 BP 106/64 01/17/21 11:44 Pulse Ox 90 01/17/21 11:44 01/16/21 01/17/21 01/17/21 22:59 06:59 14:59 Intake Total 1090 / 1430 1348.75 / 2778.75 530 / 530 Output Total 580 / 580 1000 / 1580 Balance 510 / 850 348.75 / 1198.75 530 / 530 Weight last 48 hrs Weight 113.398 kg Physical Exam Narrative: EXAM NARRATIVE: General: No acute distress, AO x3, HEENT: PERRLA, pupils bilaterally equal and reactive, pallors not present Chest: Normal vesicular breath sounds, no added sounds, equal good air entry bilaterally CVS: S1-S2 regular, no murmurs, no tachycardia, no gallops, no rubs Abdomen: Soft, non distended, TTP left lower quadrant and suprapubic area Neuro: No focal deficits, no facial deformity, AO x3, power 5/5 in all limbs EXt: no edema, clubbing or cyanosis Data : 01/17/21 04:40 01/17/21 04:40 Micro: Microbiology 01/16/21 13:45 Urine Culture - Preliminary Urine,Clean Catch 01/16/21 05:48 Blood Culture - Preliminary Blood NEGATIVE TO DATE A&P Assessment and plan (1) Sepsis: Present on admission. Meet sepsis criteria by way of fever, tachycardia, source of infection with diverticulitis. Stool studies pending. Will follow blood cultures. Continue with empiric Zosyn. IV fluids normal saline at 75 cc an hour. Status: Acute Qualifiers: Sepsis type: sepsis due to unspecified organism Sepsis acute organ dysfunction status: without acute organ dysfunction Qualified Code(s): A41.9 - Sepsis, unspecified organism (2) Sigmoid diverticulitis: Sepsis likely as a result of sigmoid diverticulitis as seen on CT, compatible clinical picture with pain over the left lower quadrant and acute on set of symptoms. Currently denies any diarrhea, has been constipated the past few days. Currently passing flatus. No reports of blood in stool. Morphine as needed for pain. Zofran as needed for vomiting. Continue with mechanical soft diet. Status: Acute (3) Chronic hypoxemic respiratory failure: Chronically on 3 L of oxygen supplementation with CPAP at night. History of COPD. Ipratropium, Xopenex every 6 hours, budesonide twice daily. COVID-19 PCR sent out from ER. Isolation precautions. No signs of pneumonia or consolidation on chest imaging. Status: Acute (4) COPD (chronic obstructive pulmonary disease): not currently exacerbated. 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 No extravasation. Hemodynamically stable. Check lower limb Dopplers. Patient will need to follow-up with vascular surgery as an outpatient for retrieval. Patient has been made aware and verbalizes understanding. Status: Acute Additional A&P Information Restart other chronic medication including bupropion 75 mg twice daily as needed, oxybutynin, sertraline. Hypertension: Goal blood pressure less than 140/90 mmHg. Restart home dose of metoprolol. DVT ppx: lovenox Full code Plan for the day: Continue with IV antibiotics. We will follow blood cultures. Awaiting stool studies. Out of bed to chair. Attestations Medical Necessity Statement*: Requires further hospitalization for management of sepsis secondary to colitis Time Spent in Patient Care: Greater than 35 minutes (>than 50% of time spent in counselling and/or direct pt care on unit) . Coding Level of Care Code Acute International Banker for g Fwd Diagnoses Sepsis A41.9 Sepsis type: sepsis due to unspecified organism Sepsis acute organ dysfunction status: without acute organ dysfunction Sigmoid diverticulitis K57.32 Chronic hypoxemic respiratory failure J96.11 COPD (chronic obstructive pulmonary disease) J44.9 COPD type: unspecified COPD Presence of IVC filter Z95.828
[2021-01-17 15:46] LABS: Troponin 5 2HR 6.08 ng/L (0-10); Troponin 5 2HR Delta 0.08 ABS# (0-10)
[2021-01-17 20:26] LABS: Troponin 5 6HR Delta 0 ng/L (0-12)
[2021-01-17] MEDS: oxybutynin 5 mg Tablet PO (21:06)
[2021-01-17] MEDS: LORazepam 1 mg Tablet PO (21:06)
[2021-01-17] MEDS: sertraline 100 mg Tablet PO (21:06)
[2021-01-18] VITALS (9 sets, daily range): BP systolic 110–120; BP diastolic 67–73; PULSE 72–88; RESP 8–22; TEMP 36.4–37; O2SAT 91–98
[2021-01-18] MEDS: ipratropium 0.5 mg/2.5 mL Neb INHALATION ×2 (02:09→09:31)
[2021-01-18] MEDS: piperacillin-tazobactam 3.375 GM in sodium chloride 0.9% (plus) 50 ML IV ×2 (03:18→10:31)
[2021-01-18] MEDS: enoxaparin 40 mg/0.4 mL Syringe SUBCUT (03:19)
[2021-01-18] MEDS: levothyroxine 25 mcg Tablet PO (06:10)
[2021-01-18] MEDS: metoprolol tartrate 50 mg Tablet PO (08:09)
[2021-01-18] MEDS: loratadine 10 mg Tablet PO (08:09)
[2021-01-18] MEDS: pantoprazole DR 40 mg Tablet PO (08:09)
[2021-01-18] MEDS: levalbuterol 0.63 mg/3 mL Neb INHALATION (09:32)
[2021-01-18] MEDS: sodium chloride 0.9% 1,000 ML 75 ML IV (10:31)
--- NOTE | 2021-01-18 13:33 | PM.DCS ---
Discharge Providers Date of Admission: 01/16/21 02:22 Date of Discharge: January 18, 2021 Attending Provider at Admission: Mara Lopez MD Attending Provider at Discharge: Oscar Frey MD Primary Care Provider: Vel Powell MD Diagnoses at Discharge Discharge Diagnosis (1) Sepsis: Status: Acute Qualifiers: Sepsis type: sepsis due to unspecified organism Sepsis acute organ dysfunction status: without acute organ dysfunction Qualified Code(s): A41.9 - Sepsis, unspecified organism (2) Sigmoid diverticulitis: Status: Acute (3) Chronic hypoxemic respiratory failure: Status: Acute (4) COPD (chronic obstructive pulmonary disease): Status: Acute Permanent problem details: since 2005 Qualifiers: COPD type: unspecified COPD Qualified Code(s): J44.9 - Chronic obstructive pulmonary disease, unspecified (5) Presence of IVC filter: Status: Acute Permanent problem details: with erosion through IVC wall. Patient does not know when this was placed or indication for the filter. Reason for Visit Reason for Visit: CHEST PAIN/SHAKING Hospital Course Hospital Course Radha Abarca is a 60 year old female With a past medical history of COPD, obstructive sleep apnea, on CPAP, uses 2 L/min chronically at nighttime, intermittently during the day uses as needed oxygen if she feels short of breath, reports O2 sats dropped down in the 80s upon exertion. She presents to the emergency room today with chief complaints of abdominal pain. She states that the pain started in the suprapubic area this morning, radiated onto the left side. Denies any dysuria, interruption in urinary stream. Visited with her primary care physician this afternoon, dipstick UA was reportedly normal, culture was sent and she was given a prescription for Bactrim. Upon returning home she continued to experience abdominal pain and had 3-4 episodes of vomiting. Thereafter also developed chest discomfort radiating into her back and shoulder blades which made her concerned and she was brought to the emergency room. Upon arrival oxygen saturation was noted to be 82% on room air, CTA of the chest was performed which was negative for PE. She was febrile with fever to 102 Fahrenheit at home, reports being febrile at home also earlier today. Has a past medical history of C. difficile. Currently denies any diarrhea. She has been more recently constipated and has been using laxatives. Patient is vaccinated with 2 dose moderna mRNA series completed May 2020. An abdominal CT was performed later during the course of my assessment on which patient is found to have evidence of sigmoid diverticulitis. Incidentally noted to also have perforation of the IVC wall with IVC filter, discussed with radiologist as being a non acute finding. No compromise of the aorta. Patient admitted to the hospital for further management of sepsis secondary to colitis. She started on broad-spectrum antibiotics. COVID-19 was ruled out. Stool studies remain negative. Patient responded well to the treatment and has been afebrile, hemodynamically stable. Her oxygen requirements have come down to baseline for last 48 hours. She is tolerating mechanical soft diet well. Patient CT abdomen pelvis was concerning for possible IVC perforation with IVC filter without any extravasation. Remained hemodynamically stable with hemoglobin remaining stable as well. Lower limb Dopplers were done which were negative for any DVTs. Patient is advised in detail to follow-up with a vascular surgeon at [facility] for retrieval of the filter. She is been discharged hemodynamically stable condition advised to follow-up with her primary care provider within next 1 week. She was discharged on oral Cipro and Flagyl for next 3 days. She is again advised in detail to follow-up with a vascular surgeon at [facility] for retrieval of IVC filter. Physical Exam Narrative: EXAM NARRATIVE: General: No acute distress, AO x3, HEENT: PERRLA, pupils bilaterally equal and reactive, pallors not present Chest: Normal vesicular breath sounds, no added sounds, equal good air entry bilaterally CVS: S1-S2 regular, no murmurs, no tachycardia, no gallops, no rubs Abdomen: Soft, non distended, TTP left lower quadrant and suprapubic area Neuro: No focal deficits, no facial deformity, AO x3, power 5/5 in all limbs EXt: no edema, clubbing or cyanosis Discharge Data Data Completed and Pending: Completed Studies During Hospitalization Category Date Time Status CT angio chest PE protcl [id number] Urge nt Cat Scan 01/15/21 19:[address] kidney stone 7 [id number] Routine Cat Scan 01/15/21 23:57 Completed XR chest 1V juanita ble [id number] Stat Exams 01/15/21 17:53 [place] [id number] Routin e Ultrasound 01/16/21 12:14 Completed CV. echo complete * [id number] Routine Ultrasound 01/16/21 09:44 Completed Pending at discharge Category Date Time Status Blood Culture AM LABS Lab 01/16/21 05:48 Results Labs from last 24 hours 01/17/21 01/17/21 01/17/21 19:18 15:12 13:06 Troponin T Baselin e 6 Troponin T 120 Min ione 6.08 Delta Troponin T 0.08 Troponin T Hi Sens 6Hr 6.00 Troponin T Hi Sens 6Hr Delta 0 Addt'l Data from Hospital Stay: Laboratory Results WBC 7.7 10^3/uL (4.0- 10.0) 01/17/21 04:40 RBC 4.07 10^6/uL (4.1 -5.3) L 01/17/21 04:40 Hgb 11.9 g/dL (11.5-1 5.3) 01/17/21 04:40 Hct 37.9 % (37.0-47.0 ) 01/17/21 04:40 MCV 93.1 fl (81-99) 01/17/21 04:40 MCH 29.2 pg (28.0-34. 0) 01/17/21 04:40 MCHC 31.4 g/dL (30.0-3 6.0) 01/17/21 04:40 RDW 14.0 % (12.1-15.1 ) 01/17/21 04:40 Plt Count 142 10^3/cmm (130 -400) 01/17/21 04:40 MPV 12.6 fL (7.4-10.4 ) H 01/17/21 04:40 Neut % (Auto) 81.4 % 01/17/21 04:40 Lymph % (Auto) 7.6 % 01/17/21 04:40 Quay % (Auto) 5.0 % 01/17/21 04:40 Eos % (Auto) 4.8 % 01/17/21 04:40 Baso % (Auto) 0.4 % 01/17/21 04:40 Neut # (Auto) 6.29 10^3/uL (1.8 -7.7) 01/17/21 04:40 Lymph # (Auto) 0.6 10^3/uL (0.8- 4.8) L 01/17/21 04:40 Quay # (Auto) 0.4 10^3/uL (0.2- 0.9) 01/17/21 04:40 Eos # (Auto) 0.4 10^3/uL (0.0- 0.8) 01/17/21 04:40 Baso # (Auto) 0.0 10^3/uL (0.0- 0.1) 01/17/21 04:40 Nucleated RBC % (a uto) 0 % 01/17/21 04:40 Nucleated RBCs # 0.0 /100WBC 01/17/21 04:40 PT 13.80 SECONDS (12 .1-14.9) 01/15/21 19:20 INR 1.03 (0.8-1.2) 01/15/21 19:20 APTT 27.1 SECONDS (23. 9-36.7) 01/15/21 19:20 Fibrinogen Cancelled 01/15/21 18:40 D-Dimer Cancelled 01/15/21 18:40 Specimen Type Arterial 01/15/21 23:31 Sample Site Radial, left 01/15/21 23:31 ABG pH 7.35 (7.35-7.45) 01/15/21 23:31 ABG pCO2 49.5 mmHg (35-45) H 01/15/21 23:31 ABG pO2 124.0 mmHg (80.0- 100.0) H 01/15/21 23:31 ABG HCO3 27.3 mmol/L (22-2 6) H 01/15/21 23:31 ABG Base Excess 1.0 mmol/L (-2.0- 2.0) 01/15/21 23:31 Milton Test Pos 01/15/21 23:31 Hematocrit 39.9 % (37-47) 01/15/21 23:31 O2 Delivery Device Oxy mask 01/15/21 23:31 O2 Liters/Min 10.0 % 01/15/21 23:31 Pack Changer ID [email or web address] 01/15/21 23:31 Sodium 138 mmol/L (136-1 45) 01/17/21 04:40 Potassium 4.7 mmol/L (3.5-5 .1) 01/17/21 04:40 Chloride 106 mmol/L (98-10 7) 01/17/21 04:40 Carbon Dioxide 24 mmol/L (22-29) 01/17/21 04:40 Anion Gap 12.7 (5-19) 01/17/21 04:40 BUN 14 mg/dL (8-23) 01/17/21 04:40 Creatinine 0.8 mg/dL (0.5-0. 9) 01/17/21 04:40 GFR Calculation 72.7 mL/min (90-1 30) L 01/17/21 04:40 Glucose 102 mg/dL (65-115 ) 01/17/21 04:40 Calculated Osmolal ity 287 mOsm/kg (285- 295) 01/17/21 04:40 Lactic Acid Cancelled 01/15/21 18:40 Lactate 1.3 mmol/L (0.5-2 .2) 01/15/21 19:20 Calcium 8.3 mg/dL (8.5-10 .5) L 01/17/21 04:40 Magnesium 2.0 mg/dL (1.7-2. 3) 01/17/21 04:40 Ferritin 246 ng/mL (15-150 ) H 01/15/21 19:20 Total Bilirubin 0.2 mg/dL (0.15-1 .2) 01/17/21 04:40 AST 18 U/L (0-32) 01/17/21 04:40 ALT 15 U/L (0-33) 01/17/21 04:40 Alkaline Phosphata se 44 IU/L (35-105) 01/17/21 04:40 Troponin T Baselin e 6 ng/L (0-10) 01/17/21 13:06 Troponin T 120 Min ione 6.08 ng/L (0-10) 01/17/21 15:12 Delta Troponin T 0.08 ABS# (0-10) 01/17/21 15:12 Troponin T Hi Sens 6Hr 6.00 ng/L (0-10) 01/17/21 19:18 Troponin T Hi Sens 6Hr Delta 0 ng/L (0-12) 01/17/21 19:18 C-Reactive Protein 188.3 mg/L (0.0-4 .9) H 01/15/21 19:20 NT-Pro-B Natriuret Pep 57 pg/mL (0-125) 01/15/21 19:20 Total Protein 6.5 g/dL (6.6-8.7 ) L 01/17/21 04:40 Albumin 3.1 g/dL (3.5-5.2 ) L 01/17/21 04:40 Globulin 3.4 g/dL (1.3-4.6 ) 01/17/21 04:40 Lipase Cancelled 01/15/21 18:40 Procalcitonin 1.94 ng/mL (0-0.5 ) H 01/15/21 19:20 Urine Color Yellow (Yellow) 01/16/21 13:45 Urine Appearance Clear (CLEAR) 01/16/21 13:45 Urine pH 6 (5-7) 01/16/21 13:45 Ur Specific Gravit y 1.010 (1.005-1.0 30) 01/16/21 13:45 Urine Protein Neg (Negative) 01/16/21 13:45 Urine Glucose (UA) Norm (Normal) 01/16/21 13:45 Urine Ketones Negative (Negati ve) 01/16/21 13:45 Urine Blood Neg (Negative) 01/16/21 13:45 Urine Nitrate Negative (Negati ve) 01/16/21 13:45 Urine Bilirubin Neg (Negative) 01/16/21 13:45 Urine Urobilinogen Norm mg/dL (Negat farzaneh) 01/16/21 13:45 Ur Leukocyte Inés ase Negative (Negati ve) 01/16/21 13:45 Nasal/Oral COVID-1 9 PCR Not detected 01/15/21 18:40 SARS-CoV-2 Ag (Rap id) Negative (Negati ve) 01/15/21 18:40 Impressions Chest X-Ray 01/15/21 17:53 IMPRESSION: No acute pulmonary disease identified. Radiation Dose CTDIVOL = (mGy): DLP = (mGy-cm) Chest CTA 01/15/21 19:03 IMPRESSION: 1. Negative for pulmonary embolism. 2. No focal pneumonia identified. Radiation Dose CTDIVOL = (mGy): DLP = 641.8 (mGy-cm) Abdomen/Pelvis CT 01/15/21 23:57 IMPRESSION: Inflammatory or infectious disease process in the proximal sigmoid colon. Favor sequela of acute diverticulitis. COMMENTS: For patients with an IVC filter, recommend assessment for a management plan for the patient's IVC filter. If there is no established management plan, recommend referral to an interventional clinician on a nonemergent basis for evaluation. Radiation Dose CTDIVOL = (mGy): DLP = 1809.53 (mGy-cm) Microbiology 01/16/21 13:45 Urine,Clean Catch Urine Culture - Final 01/17/21 14:55 Stool Stool Lactoferrin - Final 01/17/21 14:55 Stool Enteric Pathogens (PCR) - Final 01/17/21 14:55 Stool Parasite Antigen Panel - Final 01/17/21 14:55 Stool Occult Blood (FIT) - Final 01/16/21 05:48 Blood Blood Culture - Preliminary NEGATIVE TO DATE Vitals: Last Vital Signs Temp 98.2 F 01/18/21 12:00 Pulse 85 01/18/21 12:00 Resp 18 01/18/21 12:00 BP 120/73 01/18/21 12:00 Pulse Ox 92 01/18/21 12:00 Discharge Plan Discharge Patient Disposition: Home Condition: Stable Prescriptions: New Protonix 40 mg tablet,delayed release (DR/EC) 40 mg PO DAILY Qty: 14 RF: 0 Flagyl 500 mg tablet 500 mg PO Q8H 5 Days Qty: 15 RF: 0 Cipro 500 mg tablet 500 mg PO Q12H 5 Days Qty: 10 RF: 0 ipratropium bromide 0.02 % solution 1.25 ml inhalation Q8H PRN (Reason: shortness of breath or wheezing) Qty: 62.5 RF: 0 Continued sertraline 100 mg tablet 100 mg PO BEDTIME RF: 0 levothyroxine 25 mcg tablet 25 mcg PO QAM RF: 0 bupropion HCl 75 mg tablet 75 mg PO BID PRN (Reason: rx last filled on 08/11/20 30d/s 75mg tid) RF: 0 metoprolol tartrate 50 mg tablet 50 mg PO BID RF: 0 lorazepam 1 mg tablet 1 mg PO BEDTIME PRN (Reason: Sleep) RF: 0 oxybutynin chloride 5 mg tablet 5 mg PO BEDTIME RF: 0 Claritin 10 mg Tablet 10 mg PO DAILY RF: 0 Breo Ellipta 200-25 mcg/dose blister with device 1 ea INHALATION DAILY RF: 0 turmeric 400 mg Capsule 400 mg PO BID RF: 0 Tremfya 100 mg/mL Auto-Injector 100 mg SUBCUT .EVERY 2 MONTHS RF: 0 Glucosamine Chondroitin 550-30-1 mg Capsule 1 cap PO DAILY RF: 0 calcium 1 tab PO DAILY RF: 0 vitamin E 1 cap PO DAILY RF: 0 Discharge Orders: Discharge Order (Routine); Ordered 01/18/21 Ordered By: Oscar Frey Other Ambulatory Orders: DME: Nebulizer with Neb Kit (Order) Location: None Selected Ordered By: Oscar Frey Referrals: Vel Powell MD [Primary Care Provider] - 4-7 days Discharge Diet: Advance as tolerated and Soft Mechanical Discharge Activity: Resume usual activity Patient Instructions: Opioid Safety Activity Restrictions/Additional Instructions: Take ciprofloxacin and Flagyl for next 5 days as directed. Please follow-up with your primary care provider within next 1 week. You should get a referral for your primary care provider for vascular surgeon at [facility] for retrieval of IVC filter as discussed in detail as it has been shown for slight perforation to IVC without any extravasation. Discharge Attestations Time Spent in Discharge Care*: greater than 30 min Specific Discharge Activities: educating patient, discussing with pcp/other providers, discussing with machine adjuster leader case trim/social workers/dc planners, documenting/other paperwork and evaluating patient/reviewing data Status at Discharge: Cognitive status at discharge: cognitively intact, Behavioral status at discharge: cooperative, Functional status at discharge: independent ambulation Overall status at discharge: patient is back to baseline Quality Metrics Clinical Quality Measures During this hospital stay, did patient experience: None Coding Level of Care Code Acute g FW DC note Diagnoses Sepsis A41.9 Sepsis type: sepsis due to unspecified organism Sepsis acute organ dysfunction status: without acute organ dysfunction Sigmoid diverticulitis K57.32 Chronic hypoxemic respiratory failure J96.11 COPD (chronic obstructive pulmonary disease) J44.9 COPD type: unspecified COPD Presence of IVC filter Z95.828
--- NOTE | 2021-01-22 11:50 | PC.SOCIAL ---
discharge follow up call, called patient yesterday and today with no answer, mailbox is full, unable to leave message.
== END 2021-01-18 15:50 | disposition home or self-care (01) | DRG 872 ==
LOC: ER 21:42 → MEDSURG 21:56
PROVIDERS: Emergency Medicine; Admitting Provider Student in an Organized Health Care Education/Training Program; Emergency Provider Emergency Medicine; PCP Family Medicine; Visit Provider Student in an Organized Health Care Education/Training Program
DX: A41.9 Sepsis, unspecified organism (principal); K57.32 Diverticulitis of large intestine without perforation or abscess without bleeding; J96.11 Chronic respiratory failure with hypoxia; T82.598A Other mechanical complication of other cardiac and vascular devices and implants, initial encounter; Y71.1 Therapeutic (nonsurgical) and rehabilitative cardiovascular devices associated with adverse incidents; K52.9 Noninfective gastroenteritis and colitis, unspecified; J44.9 Chronic obstructive pulmonary disease, unspecified; E03.9 Hypothyroidism, unspecified; R07.9 Chest pain, unspecified; G47.33 Obstructive sleep apnea (adult) (pediatric); F17.200 Nicotine dependence, unspecified, uncomplicated; Z95.828 Presence of other vascular implants and grafts; Z99.89 Dependence on other enabling machines and devices; Z99.81 Dependence on supplemental oxygen; Z86.19 Personal history of other infectious and parasitic diseases
CPT/HCPCS: 36415; 36600; 71045; 71275; 74176; 80053; 81003; 82274; 82728; 82803; 83605; 83630; 83735; 83880; 84145; 84484; 85025; 85610; 85730; 86140; 87040; 87086; 87426; 87506; 87635; 93005; 93306; 93970; 94640; 94660; 94664; 96372; 96374; 99291; J1100; J1650; J2270; J2543; J7030; J7614; J7644; Q9967

== ENCOUNTER 2021-07-03 02:27 | Inpatient (IN) | payer MEDICARE, MEDICAID, SELFPAY ==
[2021-07-03] VITALS (183 sets, daily range): BP systolic 86–201; BP diastolic 41–117; PULSE 81–158; RESP 17–28; TEMP 36.8–37.3; O2SAT 79–100; BMI 40.7
--- NOTE | 2021-07-03 02:34 | ECG_ITS ---
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 Measurements Intervals [place] Rate: 107 P: 66 HI: 160 QRS: 87 QRSD: 96 T: 54 QT: 326 QTc: 436 Interpretive Statements SINUS TACHYCARDIA ABNORMAL RHYTHM ECG No previous ECG available for comparison Electronically Signed On 07-03-2021 17:47:22 CDT by Ayo Roach M.D. [id number]
--- NOTE | 2021-07-03 02:34 | XRR_ITS ---
PROCEDURE INFORMATION: Exam: XR Chest Exam date and time: 07/03/2021 2:42 AM Age: 60 years old Clinical indication: Shortness of breath; Patient HX: SOB. Hypoxic on monitor. Patient in severe distress. Unable to obtain history. TECHNIQUE: Imaging protocol: XR of the chest. Views: 1 view. COMPARISON: No relevant prior studies available. FINDINGS: Tubes, catheters and devices: Right-sided STRUCTURAL STEEL EQUIPMENT ERECTOR shunt catheter in place. Monitor leads project over the chest. Lungs: Minimal to mild bilateral atelectasis or scarring. No consolidation. Pleural spaces: No significant costophrenic angle blunting. No pneumothorax. Heart/Mediastinum: Heart size is normal. Vasculature: Mild atherosclerotic tortuosity of the thoracic aorta. Bones/joints: No acute osseous abnormality. Soft tissues: Large body habitus. XR/XR chest 1V portable [id number] IMPRESSION: Minimal to mild bilateral atelectasis or scarring.
--- NOTE | 2021-07-03 02:34 | CTR_ITS ---
PROCEDURE INFORMATION: Exam: CTA Chest With Contrast Exam date and time: 07/03/2021 3:10 AM Age: 60 years old Clinical indication: Other: SOB; Abdominal pain; Generalized; Shortness of breath; Other: N/a; Prior surgery; Surgery type: Gb. Vena cava filter. ; Patient HX: Patient arrived via EMS in severe distress C/O severe back/abd pain with radiation down both legs. Hypoxic with spo2 in 70s on room air. TECHNIQUE: Imaging protocol: Computed tomographic angiography of the chest with contrast. 3D rendering (Not supervised by radiologist): MIP and/or 3D reconstructed images were created by the technologist. Radiation optimization: All CT scans at this facility use at least one of these dose optimization techniques: automated exposure control; mA and/or kV adjustment per patient size (includes targeted exams where dose is matched to clinical indication); or iterative reconstruction. Contrast material: OMNI 350; Contrast volume: 183 ml; Contrast route: INTRAVENOUS (IV); COMPARISON: CR (CHEST, ) 07/03/2021 2:42 AM RADIATION DOSE METRICS: Total DLP (mGy-cm): 3563.26 FINDINGS: Tubes, catheters and devices: Right FISCAL AGENT shunt catheter in place coursing along the anterior chest. Pulmonary arteries: No vascular intraluminal filling defects to suggest pulmonary embolism. Aorta: Mild atherosclerotic tortuosity of the thoracic aorta. No aortic aneurysm or dissection. Lungs: Scattered bilateral tiny centrilobular opacities with tree-in-bud appearance and mild bilateral atelectasis or scarring Pleural spaces: Unremarkable. No pneumothorax. No pleural effusion. Heart: Heart size is normal. Coronary artery calcifications. Lymph nodes: Small nonspecific mediastinal and hilar lymph nodes. Bones/joints: Thoracic spondylosis, degenerative bony changes and old posterior right 9th, 10th and 11th rib fractures. Soft tissues: Large body habitus. PROCEDURE INFORMATION: Exam: CT Abdomen And Pelvis With Contrast Exam date and time: 07/03/2021 3:10 AM Age: 60 years old Clinical indication: Other: SOB; Abdominal pain; Generalized; Shortness of breath; Other: N/a; Prior surgery; Surgery type: Gb. Vena cava filter. ; Patient HX: Patient arrived via EMS in severe distress C/O severe back/abd pain with radiation down both legs. Hypoxic with spo2 in 70s on room air. TECHNIQUE: Imaging protocol: Computed tomography of the abdomen and pelvis with contrast. Radiation optimization: All CT scans at this facility use at least one of these dose optimization techniques: automated exposure control; mA and/or kV adjustment per patient size (includes targeted exams where dose is matched to clinical indication); or iterative reconstruction. Contrast material: OMNI 350; Contrast volume: 183 ml; Contrast route: INTRAVENOUS (IV); COMPARISON: CR (CHEST, ) 07/03/2021 2:42 AM RADIATION DOSE METRICS: Total DLP (mGy-cm): 3563.26 FINDINGS: Tubes, catheters and devices: FISCAL AGENT shunt catheter in place extending into the left lower quadrant. Liver: Mild diffuse fatty infiltration of the liver. Gallbladder and bile ducts: Previous cholecystectomy. No significant biliary ductal dilatation. Pancreas: No acute abnormality. No ductal dilation. Spleen: No acute abnormality. Adrenal glands: No acute abnormality. No mass. Kidneys and ureters: No acute abnormality. No hydronephrosis. Stomach and bowel: Moderate amount of fluid within the gastric fundus. No significant or disproportionate small bowel distention. A few fluid-filled lower abdominal and pelvic small bowel loops. Fluid within mild to moderately dilated colon with scattered air-fluid levels. Sigmoid colon diverticulosis with area of focal thickening, inflammation and luminal narrowing. Fluid within distal rectosigmoid colon. Appendix: No findings to suggest acute appendicitis. Intraperitoneal space: No significant fluid collection. No free air. Vasculature: Atherosclerotic vascular calcification. No aortic aneurysm. IVC filter in place with filter limb penetration beyond the IVC lumen. Lymph nodes: No enlarged lymph nodes. Urinary bladder: Nondistended urinary bladder. Reproductive: Heterogeneous multi fibroid uterus. Bones/joints: Mild multilevel spondylosis and degenerative bony changes. Soft tissues: Anterior abdominal wall scarring with multifocal mar-incisional lower anterior abdominal fat containing ventral hernias. Large body habitus. CT/CT angio chest w abd pel w con IMPRESSION: 1. No evidence of pulmonary embolism or aortic dissection. 2. Nonspecific tree-in-bud interstitial inflammatory changes suggesting small airways inflammatory disease/bronchiolitis, likely bacterial, mycobacterial, fungal or viral etiology. Noninfective etiologies including connective tissue disorders can have similar appearance. 3. Atherosclerotic vascular disease including coronary artery disease. IMPRESSION: 1. Sigmoid colon diverticulosis with area of focal thickening, inflammation and luminal narrowing. Differential diagnosis includes sigmoid diverticulitis with inflammatory stricture versus possible infiltrating distal colon lesion/mass. 2. Reactive ileus versus enterocolitis versus partial or developing distal colon obstruction. 3. Mild diffuse fatty infiltration of the liver. 4. Previous cholecystectomy. 5. Heterogeneous multi fibroid uterus. 6. IVC filter in place with filter limb penetration beyond the IVC lumen. See comments. 7. Anterior abdominal wall scarring with multifocal mar-incisional lower anterior abdominal fat containing ventral hernias. COMMENTS: For patients with an IVC filter, recommend assessment for a management plan for the patient's IVC filter. If there is no established management plan, recommend referral to an interventional clinician on a nonemergent basis for evaluation.
--- NOTE | 2021-07-03 02:36 | W.ED.ABDPA2 ---
HPI - Abdominal Pain General: Chief Complaint: Back Pain/Injury Stated Complaint: leg pain sob Time Seen by Provider: 07/03/21 02:28 Source: patient and EMS Mode of arrival: EMS Limitations: no limitations History of Present Illness: 60-year-old female who is here by EMS. States she woke up in the middle the night having severe back pain. She states that pain radiates down her legs and is in both flanks. She denies any tenderness to palpation any pain with movement. Patient is also having some shortness of breath denies any chest pain she is hypoxic here her pulse ox 67% on room air she states she does not wear oxygen at all times only wears it as needed. No vomiting no diarrhea patient does appear to be in quite a bit of pain here. Associated Symptoms: Denies chills, dysuria and fever(s) Review of Systems Const: Denies: fever(s), chills, body aches or change in appetite Eyes: Denies: blurry vision or eye discomfort ENMT: Denies: throat pain or dental pain Card: Reports: chest pain Resp: Reports: dyspnea GI: Reports: abdominal pain : Denies: dysuria Musc: Reports: back pain Skin/Breast: Denies: rash Neuro: Denies: headache(s) Psych: Denies: depression Jerry/Lymph: Denies: easy bruising All/Imm: Denies: urticaria Physical Exam Const: COMMON NORMALS: patient oriented x3 GENERAL APPEARANCE: in distress and ill appearing HENMT: COMMON NORMALS: normocephalic and atraumatic HEAD & SCALP: normocephalic and atraumatic Eye: COMMON NORMALS: Equal, round and reactive pupils present and EOMs intact bilaterally PUPIL: Yes Equal, round and reactive pupils present Neck/C-Spine: COMMON NORMALS: full ROM and supple Chest: COMMONS NORMALS: normal inspection of the chest and normal palpation of entire chest wall Resp: COMMON NORMALS: No retractions EFFORT & INSPECTION: Yes pursed lip breathing and Yes labored Cardio: COMMON NORMALS: regular rhythm and No murmurs present (Cardio) RATE: tachycardic RHYTHM: regular rhythm GI: COMMON NORMALS: Normal to inspection, nondistended, normoactive bowel sounds present, Soft to palpation, non-tender and no masses PALPATION: Yes Soft to palpation Back/Pelvis: OTHER: No CVA tenderness no midline tenderness but appears to be a lot of back pain Extremity: COMMON NORMALS: normal to inspection and full ROM NARRATIVE EXTREMITY EXAM: Distal pulses intact Neuro: COMMON NORMALS: patient oriented x3, moves all extremities and no focal motor deficits Psych: COMMON NORMALS: mental status grossly normal, Normal thought process present and cooperative THOUGHT PROCESS: Normal thought process present Skin: COMMON NORMALS: no rashes or lesions noted and no wounds GENERAL SKIN EXAM: no rashes or lesions noted Course Vital Signs: Vital signs: Vital Signs Temperature 98.2 F 07/03/21 03:39 Pulse Rate 117 H 07/03/21 03:39 Respiratory Rate 22 H 07/03/21 03:39 Blood Pressure 201/117 07/03/21 03:39 Pulse Oximetry 94 07/03/21 03:39 MDM - Abdominal Pain Medical Decision Making Patient presents here with hypoxia CT shows a possible pneumonia she does have hypercapnia and was started on a BiPAP down the ER. Her back pain and leg pain is likely from her restless leg CT does show possible diverticulitis we will start her on Levaquin to cover diverticulitis and pneumonia. Patient's blood work here is been normal her vitals are improved here as well. Spoke to hospitalist will admit. Lab Data : 07/03/21 02:53 07/03/21 02:53 Labs/Radiology: Radiology Impressions Chest X-Ray 07/03/21 02:34 IMPRESSION: Minimal to mild bilateral atelectasis or scarring. Chest/Abdomen/Pelvis CT 07/03/21 02:34 IMPRESSION: 1. No evidence of pulmonary embolism or aortic dissection. 2. Nonspecific tree-in-bud interstitial inflammatory changes suggesting small airways inflammatory disease/bronchiolitis, likely bacterial, mycobacterial, fungal or viral etiology. Noninfective etiologies including connective tissue disorders can have similar appearance. 3. Atherosclerotic vascular disease including coronary artery disease. IMPRESSION: 1. Sigmoid colon diverticulosis with area of focal thickening, inflammation and luminal narrowing. Differential diagnosis includes sigmoid diverticulitis with inflammatory stricture versus possible infiltrating distal colon lesion/mass. 2. Reactive ileus versus enterocolitis versus partial or developing distal colon obstruction. 3. Mild diffuse fatty infiltration of the liver. 4. Previous cholecystectomy. 5. Heterogeneous multi fibroid uterus. 6. IVC filter in place with filter limb penetration beyond the IVC lumen. See comments. 7. Anterior abdominal wall scarring with multifocal mar-incisional lower anterior abdominal fat containing ventral hernias. COMMENTS: For patients with an IVC filter, recommend assessment for a management plan for the patient's IVC filter. If there is no established management plan, recommend referral to an interventional clinician on a nonemergent basis for evaluation. Laboratory Results WBC 6.0 10^3/uL (4.0-10.0) 07/03/21 02:53 RBC 4.95 10^6/uL (4.1-5.3) 07/03/21 02:53 Hgb 14.5 g/dL (11.5-15.3) 07/03/21 02:53 Hct 46.9 % (37.0-47.0) 07/03/21 02:53 MCV 94.7 fl (81-99) 07/03/21 02:53 MCH 29.3 pg (28.0-34.0) 07/03/21 02:53 MCHC 30.9 g/dL (30.0-36.0) 07/03/21 02:53 RDW 13.6 % (12.1-15.1) 07/03/21 02:53 Plt Count 152 10^3/cmm (130-400) 07/03/21 02:53 MPV 11.3 fL (7.4-10.4) H 07/03/21 02:53 Neut % (Auto) 89.4 % 07/03/21 02:53 Lymph % (Auto) 9.0 % 07/03/21 02:53 Centre % (Auto) 0.3 % 07/03/21 02:53 Eos % (Auto) 0.0 % 07/03/21 02:53 Baso % (Auto) 0.3 % 07/03/21 02:53 Neut # (Auto) 5.36 10^3/uL (1.8-7.7) 07/03/21 02:53 Lymph # (Auto) 0.5 10^3/uL (0.8-4.8) L 07/03/21 02:53 Centre # (Auto) 0.0 10^3/uL (0.2-0.9) L 07/03/21 02:53 Eos # (Auto) 0.0 10^3/uL (0.0-0.8) 07/03/21 02:53 Baso # (Auto) 0.0 10^3/uL (0.0-0.1) 07/03/21 02:53 Nucleated RBC % (auto) 0 % 07/03/21 02:53 Nucleated RBCs # 0.0 /100WBC 07/03/21 02:53 PT 12.40 SECONDS (12.1-14.9) 07/03/21 02:53 INR 0.89 (0.8-1.2) 07/03/21 02:53 Specimen Type Arterial 07/03/21 03:23 Sample Site Radial, right 07/03/21 03:23 ABG pH 7.17 (7.35-7.45) L* 07/03/21 03:23 ABG pCO2 79.0 mmHg (35-45) H* 07/03/21 03:23 ABG pO2 80.2 mmHg (80.0-100.0) 07/03/21 03:23 ABG HCO3 28.6 mmol/L (22-26) H 07/03/21 03:23 ABG Base Excess -2.1 mmol/L (-2.0-2.0) L 07/03/21 03:23 [place] Test Pos 07/03/21 03:23 Hematocrit 43.0 % (37-47) 07/03/21 03:23 O2 Delivery Device Nc 07/03/21 03:23 O2 Liters/Min 6.0 % 07/03/21 03:23 Hand Grinder ID Skip 07/03/21 03:23 Sodium 139 mmol/L (136-145) 07/03/21 02:53 Potassium 3.9 mmol/L (3.5-5.1) 07/03/21 02:53 Chloride 99 mmol/L (98-107) 07/03/21 02:53 Carbon Dioxide 26 mmol/L (22-29) 07/03/21 02:53 Anion Gap 17.9 (5-19) 07/03/21 02:53 BUN 21 mg/dL (8-23) 07/03/21 02:53 Creatinine 0.9 mg/dL (0.5-0.9) 07/03/21 02:53 GFR Calculation 63.4 mL/min (90-130) L 07/03/21 02:53 Glucose 169 mg/dL (65-115) H 07/03/21 02:53 Calculated Osmolality 295 mOsm/kg (285-295) 07/03/21 02:53 Lactate 2.8 mmol/L (0.5-2.2) H 07/03/21 02:53 Calcium 9.6 mg/dL (8.5-10.5) 07/03/21 02:53 Total Bilirubin 0.2 mg/dL (0.15-1.2) 07/03/21 02:53 AST 14 U/L (0-32) 07/03/21 02:53 ALT 15 U/L (0-33) 07/03/21 02:53 Alkaline Phosphatase 72 IU/L (35-105) 07/03/21 02:53 Troponin T Baseline 6 ng/L (0-10) 07/03/21 02:53 NT-Pro-B Natriuret Pep 39 pg/mL (0-125) 07/03/21 02:53 Total Protein 7.6 g/dL (6.6-8.7) 07/03/21 02:53 Albumin 4.1 g/dL (3.5-5.2) 07/03/21 02:53 Globulin 3.5 g/dL (1.3-4.6) 07/03/21 02:53 Lipase 58 U/L (13-60) 07/03/21 02:53 Amorphous Sediment Not Reportable 07/03/21 04:21 EKG Data EKG 1: I personally reviewed and interpreted this EKG as follows: EKG interpretation date: 07/03/21 EKG interpretation time: 02:57 Interpretation: sinus tach hr [address] or t wave abnormalities qrs 96 qtc 389 Critical Care Time Critical Care Time: Critical Care Time: Yes Total Critical Care Time: 40 Attestation: The high probability of a clinically significant, sudden or life threatening deterioration of the patient's resp system(s) required my full and direct attention, intervention and personal management. The critical care time is as shown. This time is in addition to time spent performing any reported procedures but includes the following: [x] Data and vital sign review and interpretation [x] Patient assessment, examination and intervention [x] Documentation [x] Medication orders and management Discharge Plan Discharge Patient Disposition: Admitted As Inpatient Clinical Impression: Acute hypercapnic respiratory failure, Pneumonia, Diverticulitis Condition: Stable Coding Level of Care Code ED Clinical Account Executive for Chg Fwd Exam Comprehensive
[2021-07-03] MEDS: HYDROmorphone 1 mg/mL INJ 1 mL IVP (02:55)
[2021-07-03] MEDS: ondansetron 2 mg/ML SDV 2 mL 4 MG IVP (02:56)
[2021-07-03] MEDS: sodium chloride 0.9% 500 ML 999 ML IV (02:57)
[2021-07-03 02:58] LABS: Basophils % 0.3 %; Hematocrit 46.9 % (37.0-47.0); Hemoglobin 14.5 g/dL (11.5-15.3); Lymphocytes # 0.5 10^3/uL (0.8-4.8); Mean Corpuscular HGB Conc 30.9 g/dL (30.0-36.0); Mean Corpuscular Hemoglobin 29.3 pg (28.0-34.0); Mean Corpuscular Volume 94.7 fl (81-99); Mean Platelet Volume 11.3 fL (7.4-10.4); Monocytes % 0.3 %; Neutrophils # 5.36 10^3/uL (1.8-7.7); Neutrophils % 89.4 %; Nucleated Red Blood Cells % 0 %; Platelet Count 152 10^3/cmm (130-400); Red Blood Count 4.95 10^6/uL (4.1-5.3); Red Cell Distribution Width 13.6 % (12.1-15.1)
[2021-07-03] MEDS: LORazepam 2 mg/mL INJ 1 mL 1 MG IVP (03:00)
[2021-07-03 03:08] LABS: INR 0.89 (0.8-1.2)
[2021-07-03 03:12] LABS: Slide Review Slide Review Perform
[2021-07-03 03:18] LABS: Troponin(5th) Baseline 6 ng/L (0-10)
[2021-07-03 03:20] LABS: Alanine Aminotransferase 15 U/L (0-33); Albumin Level 4.1 g/dL (3.5-5.2); Alkaline Phosphatase 72 IU/L (35-105); Anion Gap 17.9 (5-19); Aspartate Amino Transferase 14 U/L (0-32); Blood Urea Nitrogen 21 mg/dL (8-23); Calcium 9.6 mg/dL (8.5-10.5); Carbon Dioxide 26 mmol/L (22-29); Chloride 99 mmol/L (98-107); Creatinine Clr Calc Pharmacy 86.0811; Globulin 3.5 g/dL (1.3-4.6); Glomerular Filtration Rate 63.4 mL/min (90-130); Glucose 169 mg/dL (65-115); Lipase 58 U/L (13-60); Osmolality Calculated 295 mOsm/kg (285-295); Potassium 3.9 mmol/L (3.5-5.1); Sodium 139 mmol/L (136-145); Total Bilirubin 0.2 mg/dL (0.15-1.2); Total Protein 7.6 g/dL (6.6-8.7)
[2021-07-03 03:21] LABS: Lactate (Lactic Acid level) 2.8 mmol/L (0.5-2.2)
[2021-07-03 03:24] LABS: NT Pro B Type Natriuretic Pept 39 pg/mL (0-125)
[2021-07-03] MEDS: iohexol 350 mg/mL 100 mL Btl IV ×2 (03:25)
[2021-07-03 03:37] LABS: Base Excess ABG -2.1 mmol/L (-2.0-2.0); Blood Gas Allen Test Pos; Blood Gas Operator Identificat JB; Blood Gas Sample Site Radial, right; Blood Gas Sample Type Arterial; HCO3 ABG 28.6 mmol/L (22-26); Oxygen Device NC; PO2 ABG 80.2 mmHg (80.0-100.0)
[2021-07-03 03:38] LABS: ABG PH Result 7.17 (7.35-7.45)
[2021-07-03] MEDS: labetalol 5 mg/mL SDV 20mL 10 MG IVP (03:49)
--- NOTE | 2021-07-03 04:34 | ECG_ITS ---
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 Measurements Intervals [place] Rate: 104 P: 61 MA: 165 QRS: 86 QRSD: 88 T: 50 QT: 319 QTc: 421 Interpretive Statements SINUS TACHYCARDIA LOW QRS VOLTAGE IN PRECORDIAL LEADS [QRS DEFLECTION < 1.0 mV IN CHEST LEADS] ABNORMAL RHYTHM ECG Compared to ECG 07/03/2021 02:57:54 Low QRS voltage now present Electronically Signed On 07-03-2021 17:53:11 CDT by Ayo Roach M.D. [id number]
[2021-07-03 05:00] LABS: Bilirubin Urine Neg (Negative); Blood Urine Neg (Negative); Glucose Urine UA Norm (Normal); Ketones Urine Negative (Negative); Leukocyte Esterase Urine Negative (Negative); Nitrate Urine Negative (Negative); Protein Urine Neg (Negative); Specific Gravity, Urine 1.015 (1.005-1.030); Urine Appearance Clear (CLEAR); Urine Color Colorless (Yellow); Urobilinogen Urine Norm (Negative); pH Urine 6.5 (5-7)
[2021-07-03 05:01] LABS: Add Urine Culture? No; Amphetamines Screen Urine Negative (Negative); Bacteria Urine TRACE /hpf; Barbiturates Screen Urine Negative (Negative); Benzodiazepines Screen Urine Negative (Negative); Cocaine Screen Urine Negative (Negative); Opiate Screen Urine Positive (Negative); PCP Screen Urine Negative (Negative); Squamous Epithelial Cell Urine 0-4 /hpf (0-5); THC Screen Urine Negative (Negative); WBC Urine 0-4 /hpf (0-5)
[2021-07-03] MEDS: levofloxacin-dextrose 5 % 750 MG/150 ML PREMIX 100 MG IV (05:04)
[2021-07-03 05:25] LABS: Arterial Blood Gas Hematocrit 43.6 % (37-47); Base Excess ABG -1.6 mmol/L (-2.0-2.0); Blood Gas Allen Test Pos; Blood Gas Sample Site Radial, right; Blood Gas Sample Type Arterial
[2021-07-03 05:27] LABS: Oxygen Device BIPAP
[2021-07-03] MEDS: sodium chloride 0.9% 1,000 ML 999 ML IV (05:28)
[2021-07-03 05:34] LABS: ABG PH Result 7.18 (7.35-7.45)
[2021-07-03 05:35] LABS: ABG PCO2 77.5 mmHg (35-45)
[2021-07-03 05:52] LABS: Troponin 5 2HR 7.89 ng/L (0-10); Troponin 5 2HR Delta 1.89 ABS# (0-10)
[2021-07-03 06:01] LABS: Erythrocyte Sedimentation Rate 60 mm/hr (0-15)
--- NOTE | 2021-07-03 06:06 | PM.HP ---
Providers/Chief Complaint Admitting Physician: Juan Jose Lyon MD Chief Complaint: leg pain sob History of Present Illness Radha Abarca is a 60 year old female with a past medical history of chronic back pain on hydrocodone through Dr. Powell office, history of COPD, history of smoking, history of CLINICAL REHABILITATION SPECIALIST shunt?, History of diverticulosis, history of IVC filter, who presents to [facility] due to back pain. Currently patient is alert to person, not to place, not to time, she is on the BiPAP, has trouble following commands at times, keeps dozing off, she can follow commands such as squeezing my fingers wiggling her toes, but on questioning she does not have answers to some questions, other questions or responses are quite delayed. When asked her why she was here in the hospital she tells me that she had severe back pain, she always has back pain, but just got worse overnight, she takes hydrocodone through Dr. Powell's office, it was not helping. When I asked her what has she taken too much of the medication she did not answer. Of asked her if she took any other medications that she was not supposed to she did not answer. She is not sure how much hydrocodone she takes. Or how often she takes it. She tells that she quit smoking 6 months ago. She does have COPD. She is not sure what inhalers she takes. She is not sure why she has an IVC filter or CLINICAL REHABILITATION SPECIALIST shunt. When asked her does she have any history of blood clots she cannot answer. Here given her back pain she was given a milligram of Dilaudid, Ativan and labetalol hypertension. Her initial ABG showed hypercarbic respiratory failure she was put on BiPAP. Repeat ABG shows some improvement of PCO2 to 77. With a pH of 7.18. She denies any chest pain. Denies any cardiovascular history. Denies back surgery. I did call patient is next of kin, regine gomez, who did not know mom was in the hospital, tells me that her mom lives by herself. Does not know much of mom's medical history Review of Systems Const: Denies: fever(s) Resp: Denies: dyspnea or productive cough GI: Denies: abdominal pain or vomiting : Denies: dysuria Neuro: Reports: dizziness PFSH Acute PFSH: Medical History (Updated 07/03/21 @ 06:14 by Juan Jose Lyon MD) Chronic back pain COPD (chronic obstructive pulmonary disease) Surgical History (Updated 07/03/21 @ 06:12 by Juan Jose Lyon MD) S/P IVC filter S/P CLINICAL REHABILITATION SPECIALIST shunt Status post cholecystectomy Social History (Updated 07/03/21 @ 06:12 by Juan Jose Lyon MD) Smoking and tobacco status: former smoker Alcohol intake: unknown Substance/Drug Use: never Vitals/I&O/Wt Last Vital Signs Temp 98.2 F 07/03/21 03:39 Pulse 102 H 07/03/21 05:38 Resp 18 07/03/21 05:30 BP 124/69 07/03/21 05:30 Pulse Ox 95 07/03/21 05:38 07/02/21 07/02/21 07/03/21 14:59 22:59 06:59 Intake Total 500 / 500 Balance 500 / 500 Weight last 48 hrs Weight 117.934 kg Physical Exam Const: COMMON NORMALS: no acute distress EXAM LIMITATIONS: altered mental status NUTRITIONAL APPEARANCE: obese ORIENTATION/CONSCIOUSNESS: Yes awake and Yes oriented to person; not oriented to place and not oriented to time HENMT: COMMON NORMALS: normocephalic HEAD & SCALP: normocephalic Resp: COMMON NORMALS: normal respiratory effort, No retractions, No use of accessory muscles and clear to auscultation bilaterally AUSCULTATION: clear to auscultation bilaterally Cardio: COMMON NORMALS: no JVD, regular rate, regular rhythm, S1 normal heart sound present and S2 normal heart sound present RATE: regular rate RHYTHM: regular rhythm HEART SOUNDS: S1 normal heart sound present and S2 normal heart sound present GI: COMMON NORMALS: Normal to inspection, nondistended, normoactive bowel sounds present, Soft to palpation, non-tender, No hepatosplenomegaly present, no masses and no bruits PALPATION: Yes Soft to palpation and Yes No hepatosplenomegaly present Extremity: COMMON NORMALS: capillary refill normal, no clubbing, cyanosis or edema, no calf tenderness and no pedal edema Data : 07/03/21 02:53 07/03/21 02:53 Micro: Microbiology 07/03/21 05:08 Blood Culture - Preliminary Blood SPECIMEN COLLECTED 07/03/21 05:08 Blood Culture - Preliminary Blood SPECIMEN COLLECTED A&P Assessment and plan (1) Acute hypercapnic respiratory failure: Status: Acute (2) Pneumonia: Status: Acute (3) Diverticulitis: Status: Acute (4) COPD exacerbation: Status: Acute Plan Acute hypercarbic respiratory failure -Secondary to COPD, possible pneumonia -CT of the lungs: Scattered bilateral tiny centrilobular opacities with tree-in-bud appearance and mild bilateral atelectasis or scarring -Possibly secondary to opiate overdose Plan -Hold all pain medications -We will give 1 dose of Narcan -Monitor mentation closely, monitor respiratory status closely -Continue BiPAP, changed to AVAPS -Repeat ABG in 3 hours -Ipratropium, budesonide -Solu-Medrol -Received Levaquin, continue Levaquin -Full code -Lovenox for DVT prophylaxis Chronic back pain, on hydrocodone but will have to call Dr. Powell's office for dosing History of CLINICAL REHABILITATION SPECIALIST shunt? History of IVC filter placement? We will have to do a medication reconciliation once Dr. Powell's office opened, patient is unsure which medications she takes Attestations Medical Necessity Statement*: Patient requires hospitalization for acute encephalopathy, hypercarbic respiratory failure, acute back pain, ICU, greater than 2 midnights Coding Level of Care Code Acute Joy Operator Helper for [facility] Diagnoses Acute hypercapnic respiratory failure J96.02 Pneumonia J18.9 Diverticulitis K57.92 COPD exacerbation J44.1
[2021-07-03] MEDS: pantoprazole 40 mg SDV IVP ×2 (06:07→17:08)
[2021-07-03] MEDS: enoxaparin 40 mg/0.4 mL Syringe SUBCUT (06:10)
[2021-07-03] MEDS: naloxone 0.4 mg/ml SDV IVP (06:10)
[2021-07-03 06:15] LABS: Estmated Average Glucose 117; Hemoglobin A1C 5.7 % (4.0-6.0)
[2021-07-03 06:27] LABS: Procalcitonin 0.16 ng/mL (0-0.5); Thyroid Stimulating Hormone 6.57 uIU/mL (0.27-4.20)
[2021-07-03 06:35] LABS: Lactic Sepsis W/Reflex 2.6 mmol/L (0.5-2.2)
[2021-07-03 06:38] LABS: Chol HDL Ratio 2.89 mg/dL (0.0-4.40); Cholesterol 185 mg/dL (0-200); HDL Cholesterol 64 mg/dL (60-100); LDL Cholesterol Calculated 92 mg/dL (50-129); LDL HDL Ratio 1.44 RATIO (0.00-3.22); Magnesium 1.8 mg/dL (1.7-2.3); Triglycerides 144 mg/dL (0-150)
[2021-07-03 06:39] LABS: Acetaminophen < 5.0 ug/mL (10-30); Salicylate < 0.3 mg/dL (3-10)
[2021-07-03 07:58] LABS: Reflex Lactate Order REFLEX LACTIC ORDERD
--- NOTE | 2021-07-03 08:34 | ECG_ITS ---
[facility] Test Date: 2021-07-03 Pat Name: Radha Abarca Department: Room: ICU03 Gender: Female Dock Clerk: : 1960 Requested By: Juliet Martins Order Number: [id number] John MD: Ayo Roach M.D. Measurements Intervals [place] Rate: 91 P: 56 IA: 168 QRS: 79 QRSD: 88 T: 50 QT: 350 QTc: 432 Interpretive Statements SINUS RHYTHM LOW QRS VOLTAGE IN PRECORDIAL LEADS [QRS DEFLECTION < 1.0 mV IN CHEST LEADS] Compared to ECG 07/03/2021 05:54:02 Sinus tachycardia no longer present Electronically Signed On 07-03-2021 17:54:47 CDT by Ayo Roach M.D. [id number]
[2021-07-03] MEDS: budesonide 0.5 mg/2 mL Neb INHALATION ×2 (09:03→20:02)
[2021-07-03 09:26] LABS: Lactic Acid level (Lactate) 2.8 mmol/L (0.5-2.2)
[2021-07-03 09:27] LABS: Troponin 5 6HR 7.92 ng/L (0-10)
[2021-07-03 09:50] LABS: ABG PH Result 7.23 (7.35-7.45); Alveolar-Arterial Oxygen Gradi 15.1 mmHg (5-10); Arterial Blood Gas Hematocrit 38.6 % (37-47); Base Excess ABG -1.2 mmol/L (-2.0-2.0); Blood Gas Allen Test Pos; Blood Gas Operator Identificat CAK; Blood Gas Sample Site Brachial, left; Blood Gas Sample Type Arterial; Carboxyhemoglobin 0.6 %THgb (0.4-20.1); HCO3 ABG 27.8 mmol/L (22-26); Ionized Calcium Level - ABG 1.2 mmol/L (1.1-1.4); Methemoglobin 0.6 % (0.4-1.5); Oxygen Device BIPAP; Oxygen Saturation ABG 96.2; PO2 ABG 88.6 mmHg (80.0-100.0); Potassium Level - ABG 4.7 mmol/L (3.5-5.0); Total Hemoglobin 12.6 g/dL (12-16)
[2021-07-03 09:51] LABS: ABG PCO2 67.2 mmHg (35-45)
[2021-07-03 09:54] LABS: Troponin 5 6HR Delta 1.92 ng/L (0-12)
--- NOTE | 2021-07-03 10:14 | PM.PN ---
Subjective Subjective: She is doing slightly better. She is having some dry cough. Yesterday was having nausea, vomiting, diarrhea episodes. Currently reports nausea is gone. No abdominal pain or tenderness. Denies otherwise any symptoms of aspiration. Vitals/I&O/Wt Last Vital Signs Temp 98.2 F 07/03/21 03:39 Pulse 87 07/03/21 08:53 Resp 21 H 07/03/21 08:53 BP 132/88 07/03/21 07:42 Pulse Ox 95 07/03/21 08:53 07/02/21 07/03/21 07/03/21 22:59 06:59 14:59 Intake Total 500 / 500 1150 / 1150 Balance 500 / 500 1150 / 1150 Weight last 48 hrs Weight 117.934 kg Physical Exam Narrative: Daughter at bedside Const: COMMON NORMALS: no acute distress and patient oriented x3 HENMT: COMMON NORMALS: oropharynx normal Neck/C-Spine: COMMON NORMALS: no JVD Resp: AUSCULTATION: diminished lung sounds Cardio: COMMON NORMALS: no JVD, regular rhythm, S1 normal heart sound present, S2 normal heart sound present and No murmurs present (Cardio) RHYTHM: regular rhythm HEART SOUNDS: S1 normal heart sound present and S2 normal heart sound present GI: COMMON NORMALS: Normal to inspection, nondistended, normoactive bowel sounds present, Soft to palpation and non-tender PALPATION: Yes Soft to palpation Extremity: COMMON NORMALS: no joint enlargement and no pedal edema Neuro: COMMON NORMALS: patient oriented x3 and moves all extremities Skin: COMMON NORMALS: no rashes or lesions noted GENERAL SKIN EXAM: no rashes or lesions noted Data : 07/03/21 02:53 07/03/21 02:53 Micro: Microbiology 07/03/21 05:08 Blood Culture - Preliminary Blood SPECIMEN COLLECTED 07/03/21 05:08 Blood Culture - Preliminary Blood SPECIMEN COLLECTED A&P Assessment and plan (1) Acute hypercapnic respiratory failure: Gradual improving with AVAPS. Initially only slight improvement, ABG improved to 7.18/77.5/114. Briefly off BiPAP as requested water. Resumed AVAPS, improving, ABG 7.23/67.2/88.6. Status: Acute (2) Pneumonia: Continue Levaquin, oxygen support, AVAPS, wean off as tolerating. At home she usually uses CPAP nightly through which she believes oxygen, uses oxygen as needed during the day. Possible component of aspiration after nausea vomiting yesterday. Reports also episode of diarrhea. Will assess COVID-19 PCR. Status: Acute (3) Diverticulitis: Status: Acute (4) COPD exacerbation: Diminished air entry bilaterally. Hypercapnic respiratory failure, respiratory acidosis. Continue IV steroid, inhaled steroid She reports very bad depression with albuterol, allergy list adjusted. Will resume Breo as she does have her own with her here. As above, AVAPS, wean off as tolerating. At home on nightly CPAP. Bleeds in oxygen. Otherwise O2 as needed. 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 History of IVC filter placement? Attestations Medical Necessity Statement*: Continue admission for assessment management of acute hypercapnic respiratory failure with respiratory acidosis, pneumonia, COPD exacerbation. Coding Level of Care Code Acute Cigar Packer And Picker for [facility] Diagnoses Acute hypercapnic respiratory failure J96.02 Pneumonia J18.9 Diverticulitis K57.92 COPD exacerbation J44.1
--- NOTE | 2021-07-03 11:25 | PC.NURSE ---
Nurse received patient From ER staff at 0742. Patient is alert and orietned to person, place, time, and situation. Saturating 93% on 8 liters NC. Vitals within normal limits.
--- NOTE | 2021-07-03 12:06 | PC.NURSE ---
Patient has orders for 75Mg of wellbutrin. We only carry the 150Mg dose. It cannot be cut. Nurse called daughter rafy and requested she home medications be brought in so we can continue them in hospital. Nurse alerted Dr garcia. Medication needs to be brought to pharmacy for verification and labeling when it arrives.
[2021-07-03 13:19] LABS: Adenovirus Not Detected (NOT DETECT); Chlamydia Pneumoniae Not Detected (NOT DETECT); Coronavirus 229E,HKU1,NL63,OC4 Not Detected (NOT DETECT); Human Metapneumovirus Not Detected (NOT DETECT); Human Rhinovirus/Enterovirus Not Detected (NOT DETECT); Influenza A Not Detected (NOT DETECT); Influenza A H1 Not Detected (NOT DETECT); Influenza A H1-2009 Not Detected (NOT DETECT); Influenza A H3 Not Detected (NOT DETECT); Influenza B Not Detected (NOT DETECT); Mycoplasma Pneumoniae Not Detected (NOT DETECT); Parainfluenza Virus Type 1 Not Detected (NOT DETECT); Parainfluenza Virus Type 2 Not Detected (NOT DETECT); Parainfluenza Virus Type 3 Not Detected (NOT DETECT); Parainfluenza Virus Type 4 Not Detected (NOT DETECT); Respiratory Syncytial Virus A Not Detected (NOT DETECT); Respiratory Syncytial Virus B Not Detected (NOT DETECT); SARS-COV-2 Not Detected (NOT DETECT)
[2021-07-03] MEDS: metoprolol tartrate 50 mg Tablet PO (17:10)
--- NOTE | 2021-07-03 18:19 | PC.NURSE ---
SHift SUmmary: Patient arrived on unit form ER this morning on 40% Bipap. At end of shift, she is sitting up in a chair and on 4L NC. ALert and oriented to person, place, time and situation. Patient transfers from bed to chair on her own, but is a little unsteady, should have standby assistance. Patient started on a regular diet for dinner and is tolerating well. Home med (Breo) is in the patient's pharmacy bin and is scheduled to be given. Already verified and labeled by pharmacy. Family member may be brining in her home wellbutrin (75mg) which we don't carry.
[2021-07-03] MEDS: sertraline 100 mg Tablet PO (21:08)
[2021-07-03] MEDS: LORazepam 1 mg Tablet PO (21:09)
[2021-07-03] MEDS: oxybutynin 5 mg Tablet PO (21:09)
[2021-07-04] VITALS (71 sets, daily range): BP systolic 111–156; BP diastolic 56–95; PULSE 70–110; RESP 13–39; TEMP 36.4–37.1; O2SAT 80–100
[2021-07-04 05:14] LABS: Basophils % 0.4 %; Eosinophils # 0.1 10^3/uL (0.0-0.8); Hematocrit 39.8 % (37.0-47.0); Hemoglobin 12.1 g/dL (11.5-15.3); Lymphocytes # 0.5 10^3/uL (0.8-4.8); Lymphocytes % 4.9 %; Mean Corpuscular HGB Conc 30.4 g/dL (30.0-36.0); Mean Corpuscular Hemoglobin 29.3 pg (28.0-34.0); Mean Corpuscular Volume 96.4 fl (81-99); Mean Platelet Volume 12.2 fL (7.4-10.4); Monocytes # 0.4 10^3/uL (0.2-0.9); Monocytes % 4.6 %; Neutrophils # 8.09 10^3/uL (1.8-7.7); Neutrophils % 88.1 %; Nucleated Red Blood Cells % 0 %; Platelet Count 129 10^3/cmm (130-400); Red Blood Count 4.13 10^6/uL (4.1-5.3); Red Cell Distribution Width 13.8 % (12.1-15.1); White Blood Count 9.2 10^3/uL (4.0-10.0)
[2021-07-04] MEDS: enoxaparin 40 mg/0.4 mL Syringe SUBCUT (05:37)
[2021-07-04] MEDS: levothyroxine 25 mcg Tablet PO (05:37)
[2021-07-04] MEDS: levofloxacin-dextrose 5 % 750 MG/150 ML PREMIX 100 MG IV (05:37)
[2021-07-04] MEDS: pantoprazole 40 mg SDV IVP ×2 (05:38→18:27)
[2021-07-04 05:47] LABS: Anion Gap 14.6 (5-19); Blood Urea Nitrogen 23 mg/dL (8-23); Calcium 9.3 mg/dL (8.5-10.5); Carbon Dioxide 25 mmol/L (22-29); Chloride 101 mmol/L (98-107); Creatinine Clr Calc Pharmacy 86.0811; Glomerular Filtration Rate 63.4 mL/min (90-130); Glucose 139 mg/dL (65-115); Osmolality Calculated 288 mOsm/kg (285-295); Potassium 4.6 mmol/L (3.5-5.1); Sodium 136 mmol/L (136-145)
[2021-07-04] MEDS: metroNIDAZOLE IV 500 MG/100 ML PREMIX 100 MG IV ×3 (08:17→23:25)
[2021-07-04] MEDS: metoprolol tartrate 50 mg Tablet PO ×2 (08:17→18:27)
--- NOTE | 2021-07-04 09:24 | PM.PN ---
Subjective Subjective: She tells me she cannot sleep well. She has been bothered by noisy BiPAP mask, back discomfort, as well as abdominal pain. She has had no further nausea or vomiting. She is not coughing up any phlegm. Vitals/I&O/Wt Last Vital Signs Temp 98.8 F 07/04/21 01:30 Pulse 91 07/04/21 05:52 Resp 22 H 07/04/21 05:52 BP 138/69 07/04/21 05:52 Pulse Ox 97 07/04/21 04:20 07/03/21 07/04/21 07/04/21 22:59 06:59 14:59 Intake Total 200 / 1350 510 / 510 Output Total 875 / 1275 400 / 1675 Balance -675 / 75 -400 / -325 510 / 510 Weight last 48 hrs Weight 117.934 kg Physical Exam Narrative: Daughter at bedside Const: COMMON NORMALS: no acute distress and patient oriented x3 HENMT: COMMON NORMALS: oropharynx normal Neck/C-Spine: COMMON NORMALS: no JVD Resp: AUSCULTATION: crackles Cardio: COMMON NORMALS: no JVD, regular rhythm, S1 normal heart sound present, S2 normal heart sound present and No murmurs present (Cardio) RHYTHM: regular rhythm HEART SOUNDS: S1 normal heart sound present and S2 normal heart sound present GI: COMMON NORMALS: Normal to inspection, nondistended, normoactive bowel sounds present, Soft to palpation and non-tender PALPATION: Yes Soft to palpation and Yes Tenderness to palpation present (GI) (lower) Extremity: COMMON NORMALS: no joint enlargement and no pedal edema Neuro: COMMON NORMALS: patient oriented x3 and moves all extremities Skin: COMMON NORMALS: no rashes or lesions noted GENERAL SKIN EXAM: no rashes or lesions noted Data : 07/04/21 04:46 07/04/21 04:46 Micro: Microbiology 07/03/21 05:08 Blood Culture - Preliminary Blood NEGATIVE TO DATE 07/03/21 05:08 Blood Culture - Preliminary Blood NEGATIVE TO DATE A&P Assessment and plan (1) Acute hypercapnic respiratory failure: Air entry is better today. Some crackles noted. ABG yesterday was improving. She remains awake and alert. BiPAP nightly. Otherwise wean down to nasal cannula oxygen. Dry cough. Tree-in-bud opacities on CT chest. Continue Levaquin. Continue IV steroid for now for COPD exacerbation. Will taper down dose. Transfer out of ICU. Status: Acute (2) Pneumonia: Continue Levaquin, oxygen support, AVAPS, wean off as tolerating. At the moment unable to provide sputum sample for collection of cultures if cough becomes productive. At home she usually uses CPAP nightly through which she believes oxygen, uses oxygen as needed during the day. Possible component of aspiration after nausea vomiting yesterday. Reports also episode of diarrhea. Will assess COVID-19 PCR. Status: Acute (3) Diverticulitis: No further nausea or vomiting. Had soft stools earlier, no diarrhea. Having abdominal pain. Continue Levaquin, add Flagyl. Status: Acute (4) COPD exacerbation: Continue Levaquin. Decrease the Medrol dose. Continue IV steroid for now. Continue Breo. Inhaled steroid. Ipratropium nebs. She reports very bad depression with albuterol, allergy list adjusted. At home on nightly CPAP. Bleeds in oxygen. Otherwise O2 as needed. 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 History of IVC filter placement? Attestations Medical Necessity Statement*: Continue admission for assessment of management of pneumonia, hypoxia, COPD exacerbation. Diverticulitis. Coding Level of Care Code Acute Keyseater Operator for [facility] Diagnoses Acute hypercapnic respiratory failure J96.02 Pneumonia J18.9 Diverticulitis K57.92 COPD exacerbation J44.1
[2021-07-04] MEDS: budesonide 0.5 mg/2 mL Neb INHALATION ×2 (09:28→19:49)
[2021-07-04] MEDS: oxybutynin 5 mg Tablet PO (21:10)
[2021-07-04] MEDS: LORazepam 1 mg Tablet PO (21:10)
[2021-07-04] MEDS: sertraline 100 mg Tablet PO (21:10)
[2021-07-05 03:42] LABS: ABG PCO2 57.5 mmHg (35-45); ABG PH Result 7.35 (7.35-7.45); Alveolar-Arterial Oxygen Gradi 0.1 mmHg (5-10); Arterial Blood Gas Hematocrit 39.4 % (37-47); Base Excess ABG 4.5 mmol/L (-2.0-2.0); Blood Gas Allen Test Pos; Blood Gas Sample Site Radial, right; Blood Gas Sample Type Arterial; Carboxyhemoglobin 0.6 %THgb (0.4-20.1); HCO3 ABG 31.6 mmol/L (22-26); HGB O2 Sat 95.4 % (95-100); Ionized Calcium Level - ABG 1.3 mmol/L (1.1-1.4); Methemoglobin 0.2 % (0.4-1.5); Oxygen Device BIPAP; Oxygen Saturation ABG 96.2; PO2 ABG 79.3 mmHg (80.0-100.0); Potassium Level - ABG 4.4 mmol/L (3.5-5.0); Total Hemoglobin 12.9 g/dL (12-16)
[2021-07-05 04:00] VITALS: BP 155/67; PULSE 81; RESP 17; TEMP 36.8; O2SAT 92
[2021-07-05 05:28] VITALS: PULSE 70
[2021-07-05 05:30] LABS: Basophils % 0.3 %; Eosinophils % 0.1 %; Hematocrit 40.8 % (37.0-47.0); Hemoglobin 12.8 g/dL (11.5-15.3); Lymphocytes # 0.7 10^3/uL (0.8-4.8); Lymphocytes % 7.8 %; Mean Corpuscular HGB Conc 31.4 g/dL (30.0-36.0); Mean Corpuscular Hemoglobin 29.4 pg (28.0-34.0); Mean Corpuscular Volume 93.6 fl (81-99); Mean Platelet Volume 11.7 fL (7.4-10.4); Monocytes # 0.4 10^3/uL (0.2-0.9); Monocytes % 4.9 %; Neutrophils # 7.53 10^3/uL (1.8-7.7); Neutrophils % 86.3 %; Nucleated Red Blood Cells % 0 %; Platelet Count 166 10^3/cmm (130-400); Red Blood Count 4.36 10^6/uL (4.1-5.3); Red Cell Distribution Width 13.5 % (12.1-15.1); White Blood Count 8.7 10^3/uL (4.0-10.0)
[2021-07-05] MEDS: levofloxacin-dextrose 5 % 750 MG/150 ML PREMIX 100 MG IV (05:36)
[2021-07-05] MEDS: enoxaparin 40 mg/0.4 mL Syringe SUBCUT (05:42)
[2021-07-05] MEDS: levothyroxine 25 mcg Tablet PO (05:42)
[2021-07-05] MEDS: pantoprazole 40 mg SDV IVP (05:42)
[2021-07-05 05:52] LABS: Anion Gap 12.5 (5-19); Blood Urea Nitrogen 20 mg/dL (8-23); Calcium 9.4 mg/dL (8.5-10.5); Carbon Dioxide 27 mmol/L (22-29); Chloride 102 mmol/L (98-107); Creatinine Clr Calc Pharmacy 86.0811; Glomerular Filtration Rate 63.4 mL/min (90-130); Glucose 146 mg/dL (65-115); Osmolality Calculated 289 mOsm/kg (285-295); Potassium 4.5 mmol/L (3.5-5.1); Sodium 137 mmol/L (136-145)
--- NOTE | 2021-07-05 07:29 | PC.RESP ---
Pt unable to take duoneb due to documented allergy to Albuterol. Pt has home med at bedside.
[2021-07-05] MEDS: budesonide 0.5 mg/2 mL Neb INHALATION (07:31)
[2021-07-05 07:33] VITALS: PULSE 72; RESP 18; O2SAT 94
[2021-07-05 08:00] VITALS: BP 123/65; PULSE 71; RESP 16; TEMP 36.5; O2SAT 95
[2021-07-05] MEDS: metoprolol tartrate 50 mg Tablet PO (08:23)
[2021-07-05] MEDS: metroNIDAZOLE IV 500 MG/100 ML PREMIX 100 MG IV (08:23)
--- NOTE | 2021-07-05 10:54 | P.DS_ITS ---
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 On presentation she was noted hypercapnic, with respiratory acidosis. Started on AVAPS support. CT chest showed scattered bilateral central opacities with tree-in-bud appearance. No PE. CT abdomen pelvis with sigmoid diverticulosis with focal thickening, inflammation and luminal narrowing with suspected diverticulitis, although inflammatory stricture versus colonic lesion/mass cannot be excluded. With noted reactive ileus versus enterocolitis versus partial or developing distal colon obstruction. Noted mild diffuse fatty infiltration of the liver. Heterogenous multifibroid uterus. Noted IVC filter in place with filter limb penetrating beyond IVC lumen. Anterior abdominal wall scarring with multifocal peer incisional lower intra-abdominal fat-containing ventral hernias. Discussing regarding IVC filter with her, she and her daughter state that this has been a known issue, and she has followed up with a specialist in [place] regarding also the penetrating limb, and on assessment it was found likely there would be more danger in attempting to remove it unless it is a life-threatening situation. While in the hospital she was treated with antibiotics and steroids for COPD exacerbation, pneumonia. AVAPS due to hypercapnic respiratory failure, respiratory stenosis, CO2 narcosis, with gradual improvement in ABG. Mental status improved, she remains awake and alert. Oxygenation gradually improving down from requiring 6 L to 3 L currently. Subjectively she is feeling better. Initial support with coverage with Levaquin and Flagyl also for noted possible diverticulitis. GI symptoms had resolved. Home oxygen evaluation is requested. She will continue CPAP at home nightly. In case CO2 retention becomes a recurrent issue BiPAP may be necessary. Instructed to maintain oxygen saturation 88-90% at home to avoid hyperoxia. Please follow-up chest x-ray in about 6 weeks for resolution of pneumonia. Consider follow-up colonoscopy in 6 weeks to reassess the focal area of thickening in sigmoid colon depending on the timing of the most recent colonoscopy. Physical Exam Narrative: Daughter at bedside Const: COMMON NORMALS: no acute distress and patient oriented x3 HENMT: COMMON NORMALS: oropharynx normal Neck/C-Spine: COMMON NORMALS: no JVD Resp: COMMON NORMALS: normal respiratory effort and clear to auscultation bilaterally AUSCULTATION: clear to auscultation bilaterally Cardio: COMMON NORMALS: no JVD, regular rhythm, S1 normal heart sound present, S2 normal heart sound present and No murmurs present (Cardio) RHYTHM: regular rhythm HEART SOUNDS: S1 normal heart sound present and S2 normal heart sound present GI: COMMON NORMALS: Normal to inspection, nondistended, normoactive bowel sounds present, Soft to palpation and non-tender PALPATION: Yes Soft to palpation Extremity: COMMON NORMALS: no joint enlargement and no pedal edema Neuro: COMMON NORMALS: patient oriented x3 and moves all extremities Skin: COMMON NORMALS: no rashes or lesions noted GENERAL SKIN EXAM: no rashes or lesions noted Discharge Data Studies Completed and Pending Completed Studies During Hospitalization Category Date Time Status CT angio chest w abd pel w con Stat Cat Scan 07/03/21 02:34 Completed XR chest 1V portable [id number] Stat Exams 07/03/21 02:34 Completed Pending at discharge Category Date Time Status Basic Metabolic Panel AM LABS Lab 07/06/21 04:00 Ordered Blood Culture Stat Lab 07/03/21 05:08 Results Complete Blood Count w/Auto AM LABS Lab 07/06/21 04:00 Ordered Radiology Impressions Chest X-Ray 07/03/21 02:34 IMPRESSION: Minimal to mild bilateral atelectasis or scarring. Chest/Abdomen/Pelvis CT 07/03/21 02:34 IMPRESSION: 1. No evidence of pulmonary embolism or aortic dissection. 2. Nonspecific tree-in-bud interstitial inflammatory changes suggesting small airways inflammatory disease/bronchiolitis, likely bacterial, mycobacterial, fungal or viral etiology. Noninfective etiologies including connective tissue disorders can have similar appearance. 3. Atherosclerotic vascular disease including coronary artery disease. IMPRESSION: 1. Sigmoid colon diverticulosis with area of focal thickening, inflammation and luminal narrowing. Differential diagnosis includes sigmoid diverticulitis with inflammatory stricture versus possible infiltrating distal colon lesion/mass. 2. Reactive ileus versus enterocolitis versus partial or developing distal colon obstruction. 3. Mild diffuse fatty infiltration of the liver. 4. Previous cholecystectomy. 5. Heterogeneous multi fibroid uterus. 6. IVC filter in place with filter limb penetration beyond the IVC lumen. See comments. 7. Anterior abdominal wall scarring with multifocal mar-incisional lower anterior abdominal fat containing ventral hernias. COMMENTS: For patients with an IVC filter, recommend assessment for a management plan for the patient's IVC filter. If there is no established management plan, recommend referral to an interventional clinician on a nonemergent basis for evaluation. Laboratory Results WBC 8.7 10^3/uL (4.0-10.0) 07/05/21 05:02 RBC 4.36 10^6/uL (4.1-5.3) 07/05/21 05:02 Hgb 12.8 g/dL (11.5-15.3) 07/05/21 05:02 Hct 40.8 % (37.0-47.0) 07/05/21 05:02 MCV 93.6 fl (81-99) 07/05/21 05:02 MCH 29.4 pg (28.0-34.0) 07/05/21 05:02 MCHC 31.4 g/dL (30.0-36.0) 07/05/21 05:02 RDW 13.5 % (12.1-15.1) 07/05/21 05:02 Plt Count 166 10^3/cmm (130-400) 07/05/21 05:02 MPV 11.7 fL (7.4-10.4) H 07/05/21 05:02 Neut % (Auto) 86.3 % 07/05/21 05:02 Lymph % (Auto) 7.8 % 07/05/21 05:02 [place] % (Auto) 4.9 % 07/05/21 05:02 Eos % (Auto) 0.1 % 07/05/21 05:02 Baso % (Auto) 0.3 % 07/05/21 05:02 Neut # (Auto) 7.53 10^3/uL (1.8-7.7) 07/05/21 05:02 Lymph # (Auto) 0.7 10^3/uL (0.8-4.8) L 07/05/21 05:02 [place] # (Auto) 0.4 10^3/uL (0.2-0.9) 07/05/21 05:02 Eos # (Auto) 0.0 10^3/uL (0.0-0.8) 07/05/21 05:02 Baso # (Auto) 0.0 10^3/uL (0.0-0.1) 07/05/21 05:02 Nucleated RBC % (auto) 0 % 07/05/21 05:02 Nucleated RBCs # 0.0 /100WBC 07/05/21 05:02 ESR 60 mm/hr (0-15) H 07/03/21 02:53 PT 12.40 SECONDS (12.1-14.9) 07/03/21 02:53 INR 0.89 (0.8-1.2) 07/03/21 02:53 Specimen Type Arterial 07/05/21 03:30 Sample Site Radial, right 07/05/21 03:30 ABG pH 7.35 (7.35-7.45) 07/05/21 03:30 ABG pCO2 57.5 mmHg (35-45) H 07/05/21 03:30 ABG pO2 79.3 mmHg (80.0-100.0) L 07/05/21 03:30 ABG HCO3 31.6 mmol/L (22-26) H 07/05/21 03:30 ABG O2 Saturation 96.2 07/05/21 03:30 ABG Base Excess 4.5 mmol/L (-2.0-2.0) H 07/05/21 03:30 [place] Test Pos 07/05/21 03:30 A-a O2 Gradient 0.1 mmHg (5-10) L 07/05/21 03:30 Hematocrit 39.4 % (37-47) 07/05/21 03:30 Hgb O2 Saturation 95.4 % (95-100) 07/05/21 03:30 Carboxyhemoglobin 0.6 %THgb (0.4-20.1) 07/05/21 03:30 Methemoglobin 0.2 % (0.4-1.5) L 07/05/21 03:30 Total Hemoglobin 12.9 g/dL (12-16) 07/05/21 03:30 Sodium 140.0 mmol/L (131-143) 07/05/21 03:30 Potassium 4.4 mmol/L (3.5-5.0) 07/05/21 03:30 Glucose 174.0 mg/dL (70-115) H 07/05/21 03:30 Ionized Calcium 1.3 mmol/L (1.1-1.4) 07/05/21 03:30 O2 Delivery Device Bipap 07/05/21 03:30 O2 Liters/Min 3.0 % 07/05/21 03:30 FiO2 40.0 % 07/03/21 09:39 PEEP 9.0 cmH20 07/05/21 03:30 Material Flow Engineer ID [email or web address] 07/05/21 03:30 Sodium 137 mmol/L (136-145) 07/05/21 05:02 Potassium 4.5 mmol/L (3.5-5.1) 07/05/21 05:02 Chloride 102 mmol/L (98-107) 07/05/21 05:02 Carbon Dioxide 27 mmol/L (22-29) 07/05/21 05:02 Anion Gap 12.5 (5-19) 07/05/21 05:02 BUN 20 mg/dL (8-23) 07/05/21 05:02 Creatinine 0.9 mg/dL (0.5-0.9) 07/05/21 05:02 GFR Calculation 63.4 mL/min (90-130) L 07/05/21 05:02 Glucose 146 mg/dL (65-115) H 07/05/21 05:02 Estimat Average Glucose 117 07/03/21 02:53 Hemoglobin A1c 5.7 % (4.0-6.0) 07/03/21 02:53 Calculated Osmolality 289 mOsm/kg (285-295) 07/05/21 05:02 Lactic Acid 2.6 mmol/L (0.5-2.2) H 07/03/21 06:05 Lactic Acid (Sepsis) 2.8 mmol/L (0.5-2.2) H 07/03/21 08:58 Lactate 2.8 mmol/L (0.5-2.2) H 07/03/21 02:53 Calcium 9.4 mg/dL (8.5-10.5) 07/05/21 05:02 Magnesium 1.8 mg/dL (1.7-2.3) 07/03/21 02:53 Magnesium Cancelled 07/03/21 02:53 Total Bilirubin 0.2 mg/dL (0.15-1.2) 07/03/21 02:53 AST 14 U/L (0-32) 07/03/21 02:53 ALT 15 U/L (0-33) 07/03/21 02:53 Alkaline Phosphatase 72 IU/L (35-105) 07/03/21 02:53 Troponin T Baseline 6 ng/L (0-10) 07/03/21 02:53 Troponin T 120 Minute 7.89 ng/L (0-10) 07/03/21 05:18 Delta Troponin T 1.89 ABS# (0-10) 07/03/21 05:18 Troponin T Hi Sens 6Hr 7.92 ng/L (0-10) 07/03/21 08:58 Troponin T Hi Sens 6Hr Delta 1.92 ng/L (0-12) 07/03/21 08:58 NT-Pro-B Natriuret Pep 39 pg/mL (0-125) 07/03/21 02:53 Total Protein 7.6 g/dL (6.6-8.7) 07/03/21 02:53 Albumin 4.1 g/dL (3.5-5.2) 07/03/21 02:53 Globulin 3.5 g/dL (1.3-4.6) 07/03/21 02:53 Triglycerides 144 mg/dL (0-150) 07/03/21 02:53 Triglycerides Cancelled 07/03/21 02:53 Cholesterol 185 mg/dL (0-200) 07/03/21 02:53 Cholesterol Cancelled 07/03/21 02:53 LDL Cholesterol, Calc 92 mg/dL (50-129) 07/03/21 02:53 LDL Cholesterol, Calc Cancelled 07/03/21 02:53 HDL Cholesterol 64 mg/dL (60-100) 07/03/21 02:53 HDL Cholesterol Cancelled 07/03/21 02:53 LDL/HDL Ratio 1.44 RATIO (0.00-3.22) 07/03/21 02:53 LDL/HDL Ratio Cancelled 07/03/21 02:53 Cholesterol/HDL Ratio 2.89 mg/dL (0.0-4.40) 07/03/21 02:53 Cholesterol/HDL Ratio Cancelled 07/03/21 02:53 Lipase 58 U/L (13-60) 07/03/21 02:53 Procalcitonin 0.16 ng/mL (0-0.5) 07/03/21 02:53 TSH 6.57 uIU/mL (0.27-4.20) H 07/03/21 02:53 TSH Cancelled 07/03/21 02:53 Urine Color Colorless (Yellow) 07/03/21 04:21 Urine Appearance Clear (CLEAR) 07/03/21 04:21 Urine pH 6.5 (5-7) 07/03/21 04:21 Ur Specific [place] 1.015 (1.005-1.030) 07/03/21 04:21 Urine Protein Neg (Negative) 07/03/21 04:21 Urine Glucose (UA) Norm (Normal) 07/03/21 04:21 Urine Ketones Negative (Negative) 07/03/21 04:21 Urine Blood Neg (Negative) 07/03/21 04:21 Urine Nitrate Negative (Negative) 07/03/21 04:21 Urine Bilirubin Neg (Negative) 07/03/21 04:21 Urine Urobilinogen Norm mg/dL (Negative) 07/03/21 04:21 Ur Leukocyte Esterase Negative (Negative) 07/03/21 04:21 Urine RBC 5-10 /hpf (0-2) H 07/03/21 04:21 Urine WBC 0-4 /hpf (0-5) H 07/03/21 04:21 Ur Squamous Epith Cells 0-4 /hpf (0-5) H 07/03/21 04:21 Amorphous Sediment Not Reportable 07/03/21 04:21 Urine Bacteria Trace /hpf (NONE) 07/03/21 04:21 Salicylates < 0.3 mg/dL (3-10) L 07/03/21 02:53 Urine Opiates Screen Positive ng/mL (Negative) H 07/03/21 04:21 Acetaminophen < 5.0 ug/mL (10-30) L 07/03/21 02:53 Ur Barbiturates Screen Negative ng/mL (Negative) 07/03/21 04:21 Ur Phencyclidine Scrn Negative ng/mL (Negative) 07/03/21 04:21 Ur Amphetamines Screen Negative ng/mL (Negative) 07/03/21 04:21 U Benzodiazepines Scrn Negative ng/mL (Negative) 07/03/21 04:21 Urine Cocaine Screen Negative ng/mL (Negative) 07/03/21 04:21 U Marijuana (THC) Screen Negative ng/mL (Negative) 07/03/21 04:21 Coronavirus 229E (PCR) Not detected (NOT DETECT) 07/03/21 10:55 SARS-CoV-2 (PCR) Not detected (NOT DETECT) 07/03/21 10:55 Vitals Last Vital Signs Temp 97.7 F 07/05/21 08:00 Pulse 71 07/05/21 08:00 Resp 16 07/05/21 08:00 BP 123/65 07/05/21 08:00 Pulse Ox 95 07/05/21 08:00 Discharge Plan Discharge Patient Disposition: Home Condition: Stable Prescriptions: New levofloxacin 750 mg tablet 750 mg PO DAILY 7 Days Qty: 7 0RF metronidazole 500 mg tablet 500 mg PO Q8H 7 Days Qty: 21 0RF prednisone 20 mg tablet 20 mg PO DAILY 2 Days Qty: 2 0RF Continued sertraline 100 mg tablet 100 mg PO BEDTIME 0RF levothyroxine 25 mcg tablet 25 mcg PO QAM 0RF bupropion HCl 75 mg tablet 75 mg PO DAILY 0RF metoprolol tartrate 50 mg tablet 50 mg PO BID 0RF lorazepam 1 mg tablet 1 mg PO DAILY PRN (Reason: Restless Leg(S)) 0RF oxybutynin chloride 5 mg tablet 5 mg PO BEDTIME 0RF ipratropium bromide 0.02 % solution 0.5 mg inhalation DAILY 0RF Breo Ellipta 200-25 mcg/dose blister with device 1 ea INHALATION QAM 0RF Tremfya 100 mg/mL syringe 100 mg SUBCUT .EVERY 2 MONTHS 0RF turmeric 400 mg Capsule 400 mg PO DAILY 0RF Glucosamine Chondroitin 550-30-1 mg Capsule 1 cap PO DAILY 0RF vitamin E 1 cap PO DAILY 0RF Discontinued sulfamethoxazole-trimethoprim 800-160 mg tablet 1 tab PO BID 0RF Rx Instructions: rx filled 07/02/21 7d/s Discharge Orders: Discharge Order (Routine); Ordered 07/05/21 Ordered By: Micheal Wright Referrals: Vel Powell MD [Staff Physician] - 4-7 days (Please call [facility] on Tuesday and schedule an appointment to be seen by Dr. Powell in the next 7 days.) Discharge Activity: Increase activity as tolerated, Oxygen as instructed and Cpap/Bipap as instructed Activity Restrictions/Additional Instructions: Please complete Levaquin course for pneumonia, COPD exacerbation. Complete a brief steroid course. Maintain oxygen saturation 88-92%. Avoid high oxygen saturations, above 95%, so as to avoid accumulation of carbon dioxide. Please follow-up chest x-ray after resolution of pneumonia in about 6 weeks. For diverticulitis complete Levaquin Flagyl. Please discuss with your primary doctor follow-up colonoscopy in 6 weeks after resolution. Discharge Attestations Time Spent in Discharge Care*: greater than 30 min Quality Metrics Clinical Quality Measures [ No reported AMI, CVA or VTE this stay] Coding Level of Care Code Acute [facility] note Diagnoses Acute hypercapnic respiratory failure J96.02 Pneumonia J18.9 Diverticulitis K57.92 COPD exacerbation J44.1
[2021-07-05 11:10] VITALS: O2SAT 80; O2SAT 88; O2SAT 91
--- NOTE | 2021-07-05 11:35 | PC.NURSE ---
Pt was discharged to home via wheelchair with daughter. All discharge instructions were discussed and pt understood and taught back to this nurse. Pt wanted medications sent to [facility] pharmacy and was informed to call for follow up indra.
[2021-07-05 12:11] VITALS: BP 123/65; PULSE 71; RESP 16; TEMP 36.5; O2SAT 95
== END 2021-07-05 11:35 | disposition home or self-care (01) | DRG 193 ==
LOC: ER 05:13 → ICU 05:42 → MEDSURG 07-04 12:34
PROVIDERS: Admitting Provider Family Medicine; Emergency Provider Emergency Medicine; Visit Provider Internal Medicine
DX: J18.9 Pneumonia, unspecified organism (principal); J96.02 Acute respiratory failure with hypercapnia; J44.1 Chronic obstructive pulmonary disease with (acute) exacerbation; J44.0 Chronic obstructive pulmonary disease with (acute) lower respiratory infection; K57.32 Diverticulitis of large intestine without perforation or abscess without bleeding; G93.40 Encephalopathy, unspecified; E87.2 Acidosis; G25.81 Restless legs syndrome; Z95.828 Presence of other vascular implants and grafts; G89.29 Other chronic pain; M54.9 Dorsalgia, unspecified; Z87.891 Personal history of nicotine dependence
CPT/HCPCS: 36415; 36600; 71045; 71275; 74177; 80048; 80051; 80053; 80061; 80306; 80307; 81001; 82330; 82803; 82805; 83036; 83605; 83690; 83735; 83880; 84145; 84443; 84484; 85025; 85610; 85651; 87040; 87635; 93005; 94640; 94660; 94762; 96365; 96372; 96375; 96376; 99285; C9113; J1170; J1650; J1956; J2060; J2310; J2405; J2920; J2930; J3490; J7030; J7040; J7626; Q9967; S0030

== ENCOUNTER 2021-07-20 14:20 | Outpatient (CLI) | payer MEDICARE, MEDICAID, SELFPAY ==
--- NOTE | 2021-07-20 14:26 | XRR_ITS ---
PROCEDURE INFORMATION: Exam: XR Chest Exam date and time: 07/20/2021 2:31 PM Age: 60 years old Clinical indication: Other: Hypoxia; Prior surgery; Surgery type: HX of shunt; Ivc filter? , Gb/appy; Patient HX: Recent hospitalization-pneumonia. Follow up; Additional info: Pneumonia; Hypoxia TECHNIQUE: Imaging protocol: XR of the chest. Views: 2 views. COMPARISON: CR XR chest 1V portable [id number] 01/15/2021 6:08 PM FINDINGS: Tubes, catheters and devices: Redemonstrated right-sided HAT FORMER shunt seen traversing the anterior right chest wall on lateral view. It is not seen traversing into the abdominal soft tissues on frontal view. Lungs: Linear scarring noted in the right mid lung. No consolidation. Pleural spaces: Unremarkable. No pleural effusion. No pneumothorax. Heart/Mediastinum: Unremarkable. No cardiomegaly. Bones/joints: Unremarkable. XR/XR chest 2V* [id number] IMPRESSION: 1. No acute findings. 2. Redemonstrated right-sided HAT FORMER shunt seen traversing the anterior right chest wall. It is not seen entering into the abdominal soft tissues. This could represent a disconnected shunt, correlate with clinical history and any recent revisions to the shunt.
== END 2021-07-20 14:21 | disposition home or self-care (01) ==
LOC: RAD 14:22
PROVIDERS: PCP Family Medicine; Visit Provider Clinical Nurse Specialist Adult Health
DX: J18.9 Pneumonia, unspecified organism (principal); R09.02 Hypoxemia; Z98.2 Presence of cerebrospinal fluid drainage device
CPT/HCPCS: 71046

== ENCOUNTER 2021-09-14 20:00 | Outpatient (CLI) | payer MEDICARE, MEDICAID, SELFPAY | END 2021-09-14 20:01 | disposition home or self-care (01) | LOC: SLEEP 09-15 07:40 | PROVIDERS: PCP Family Medicine; Visit Provider Family Medicine | DX: G47.33 Obstructive sleep apnea (adult) (pediatric) (principal) | CPT/HCPCS: 95810 ==

== ENCOUNTER → 2022-11-11 10:38 | Outpatient (BNVA) | payer MEDICARE, MEDICAID, SELFPAY | PROVIDERS: PCP Family Medicine; Visit Provider Family Medicine | DX: F32.A Depression, unspecified (principal); G47.30 Sleep apnea, unspecified; J44.9 Chronic obstructive pulmonary disease, unspecified; J44.1 Chronic obstructive pulmonary disease with (acute) exacerbation | CPT/HCPCS: 80053; 84443; 85025 ==

== ENCOUNTER → 2023-02-16 13:01 | Outpatient (BNVA) | payer MEDICARE, MEDICAID, SELFPAY | PROVIDERS: PCP Family Medicine; Visit Provider Family Medicine | DX: R30.0 Dysuria (principal) | CPT/HCPCS: 81000 ==

== ENCOUNTER → 2023-02-17 16:11 | Outpatient (BNVA) | payer MEDICARE, MEDICAID, SELFPAY | PROVIDERS: PCP Family Medicine; Visit Provider Family Medicine | DX: R30.0 Dysuria (principal); N39.0 Urinary tract infection, site not specified | CPT/HCPCS: 87086 ==

== ENCOUNTER 2023-06-27 14:37 | Outpatient (CLI) | payer MEDICARE, MEDICAID, SELFPAY ==
--- NOTE | 2023-06-27 14:45 | XRR_ITS ---
PROCEDURE INFORMATION: Exam: XR Chest Exam date and time: 06/27/2023 3:03 PM Age: 62 years old Clinical indication: Dyspnea and shortness of breath; Prior surgery; Surgery date: 6+ months; Surgery type: Gallbladder, appendix, stent from head to heart TECHNIQUE: Imaging protocol: Radiologic exam of the chest. Views: 2 views. COMPARISON: CR XR chest 2V* [id number] 07/20/2021 2:31 PM FINDINGS: Tubes, catheters and devices: There is a catheter coursing over the right lower neck and anterior chest wall. Lungs: There is stable opacity in the anterior mid to lower lungs bilaterally compared to 07/20/2021. Pleural spaces: There is no pleural effusion or pneumothorax. Heart/Mediastinum: Cardiomediastinal contours are unremarkable. Bones/joints: There are healed right 9th and 10th rib fractures which are stable. No acute fracture. XR/XR chest 2V* [id number] IMPRESSION: Persistent or recurrent nonspecific opacity in the anterior mid to lower lungs bilaterally since 07/20/2021. Possible parenchymal scarring and atelectasis, persistent chronic or recurrent infection, or interstitial lung disease.
== END 2023-06-27 14:38 | disposition home or self-care (01) ==
LOC: RAD 14:38
PROVIDERS: PCP Family Medicine; Visit Provider Family Medicine
DX: J18.9 Pneumonia, unspecified organism (principal); R91.8 Other nonspecific abnormal finding of lung field
CPT/HCPCS: 71046

== ENCOUNTER → 2023-07-20 14:26 | Outpatient (BNVA) | payer MEDICARE, MEDICAID, SELFPAY | PROVIDERS: PCP Family Medicine; Visit Provider Family Medicine | DX: J18.9 Pneumonia, unspecified organism (principal) | CPT/HCPCS: 87070; 87205 ==

== ENCOUNTER → 2024-03-07 18:16 | Outpatient (BNVA) | payer MEDICARE, SELFPAY | PROVIDERS: PCP Family Medicine; Visit Provider Nurse Practitioner | DX: R10.9 Unspecified abdominal pain (principal) | CPT/HCPCS: 81000 ==

== ENCOUNTER → 2024-09-04 10:05 | Outpatient (BNVA) | payer MEDICARE, SELFPAY | PROVIDERS: PCP Family Medicine; Visit Provider Family Medicine | DX: Z00.00 Encounter for general adult medical examination without abnormal findings (principal); J44.9 Chronic obstructive pulmonary disease, unspecified; R06.00 Dyspnea, unspecified; F32.A Depression, unspecified | CPT/HCPCS: 80053; 80061; 84443; 85025 ==

== ENCOUNTER 2024-09-26 11:00 | Outpatient (CLI) | payer OTHER, SELFPAY ==
--- NOTE | 2024-09-26 12:30 | CTR_ITS ---
PROCEDURE INFORMATION: Exam: CT Chest With Contrast; Diagnostic Exam date and time: 09/26/2024 12:31 PM Age: 63 years old Clinical indication: Dyspnea and shortness of breath; Prior surgery; Surgery date: 6+ months; Surgery type: Gb, appy TECHNIQUE: Imaging protocol: Diagnostic computed tomography of the chest with contrast. Radiation optimization: All CT scans at this facility use at least one of these dose optimization techniques: automated exposure control; mA and/or kV adjustment per patient size (includes targeted exams where dose is matched to clinical indication); or iterative reconstruction. Contrast material: OMNI 350; Contrast volume: 100 ml; Contrast route: INTRAVENOUS (IV); COMPARISON: CT angio chest w abd pel w con 07/03/2021 3:10 AM RADIATION DOSE METRICS: Total DLP (mGy-cm): 759.27 FINDINGS: Lungs: There is a 1 cm diameter rounded nodule lying within the superior aspect of the left lower lobe. Chronic interstitial coarsening can be seen throughout both lungs. There is linear atelectasis involving both lung bases. Pleural spaces: Unremarkable. No pneumothorax. No pleural effusion. Heart: Unremarkable. No cardiomegaly. No pericardial effusion. Lymph nodes: Unremarkable. No enlarged lymph nodes. Vasculature: Unremarkable. No aortic aneurysm. Bones/joints: Unremarkable. No acute fracture. Soft tissues: Unremarkable. CT/CT chest w con* [id number] IMPRESSION: 1. Interval development of a 1 cm nodule in the left lung which is suspicious for neoplasm. Further workup with PET-CT is recommended. 2. Stable chronic lung changes 3. For both low risk and high risk patients, consider CT Chest at 3 months, PET/CT, or biopsy. (Reference: Ana) REFERENCES: Ana Cantrell et al. Guidelines for Management of Incidental Pulmonary Nodules Detected on CT Images: From the Fleischner Society 2017. Radiology. 2017;284(1):228-243.
[2024-09-26] MEDS: iohexol 350 mg/mL 500 mL Btl (per mL) IV (12:38)
--- NOTE | 2024-09-26 13:00 | MM_ITS ---
WS: [id number] BILATERAL 3D TOMOSYNTHESIS DIGITAL SCREENING MAMMOGRAPHY WITH CAD CLINICAL INFORMATION: screening HISTORY: Screening mammogram. No current complaints. COMPARISON: 2019 TECHNIQUE: Bilateral CC and MLO views. FINDINGS: Scattered fibroglandular densities bilaterally. No suspicious focal mass, asymmetry, calcifications, or architectural distortion. No evidence of malignancy. Vascular calcification. MM/MM scr BI tomosynthesis [id number] IMPRESSION: DENSITY: There are scattered areas of fibroglandular density. BI-RADS: 2 - Benign. FOLLOW UP: 1 Year Follow-up Recommend return to annual screening mammography.
--- NOTE | 2024-09-26 13:30 | XR_ITS ---
WS: [id number] DEXA (DUAL ENERGY X-RAY ABSORPTIOMETRY) Bone mineral density was performed using a Zipano machine. HISTORY: screening COMPARISON: 07/28/2016 Lumbar spine BMD (L1-L4): 1.301 g/cm2 T score: 1.0 Z score: 1.4 Total hip BMD: Left: 0.967 g/cm2. T score: -0.3 Z score: 0.1 Right: 0.974 g/cm2. T score: -0.3 Z score: 0.1 10 year probability of a major osteoporotic fracture is 6.9%. Compared to the prior study from 07/28/2016. Lumbar spine bone mineral density has increased by 1.6%. Bilateral hips bone mineral density has increased by 0.2%. XR/XR DEXA axial skeleton* [id number] IMPRESSION: NORMAL BONE MINERAL DENSITY based upon the WHO classification for females. No significant change in bone mineral density since the prior exam.
== END 2024-09-26 11:01 | disposition home or self-care (01) ==
LOC: RT 11:04
PROVIDERS: PCP Family Medicine; Visit Provider Family Medicine
DX: Z12.31 Encounter for screening mammogram for malignant neoplasm of breast (principal); J44.9 Chronic obstructive pulmonary disease, unspecified; R06.00 Dyspnea, unspecified; Z00.00 Encounter for general adult medical examination without abnormal findings; J98.8 Other specified respiratory disorders; R94.2 Abnormal results of pulmonary function studies; R92.323 Mammographic fibroglandular density, bilateral breasts; R92.1 Mammographic calcification found on diagnostic imaging of breast; R91.1 Solitary pulmonary nodule; R91.8 Other nonspecific abnormal finding of lung field; J98.11 Atelectasis
CPT/HCPCS: 71260; 77063; 77067; 77080; 94010; 94726; 94729

== ENCOUNTER 2024-11-02 09:52 | Outpatient (CLI) | payer OTHER, SELFPAY ==
--- NOTE | 2024-11-02 10:00 | PETR_ITS ---
PROCEDURE INFORMATION: Exam: PET/CT Skull Base to Mid-thigh Exam date and time: 11/02/2024 11:03 AM Age: 64 years old Clinical indication: Abnormal findings; Interval development of a 1 cm nodule in the left lung which is suspicious for neoplasm. Further workup with pet-ct is recommended. Prior surgery; Surgery date: 6+ months; Surgery type: Gb, appy; Additional info: New lung nodule on CT LABS AND CLINICAL REPORTS: Glucose: 99 mg/dl Treatment strategy for malignancy (PET staging): Initial Staging (PI) TECHNIQUE: Imaging protocol: Following at least four-hour fasting and following the injection of radiopharmaceutical, low dose CT images were obtained. Then, PET images were obtained. Attenuation corrected images were constructed using the CT scan. Fused images of PET and CT were reviewed. The standardized uptake values (SUV) reported below are maximum values within a region of interest, expressed in gm/ml. Exam includes orbital meatal line to mid-thigh. SUV normalization method: BodyWeight Radiopharmaceutical: 12.04 mCi F-18 FDG (Fluorodeoxyglucose), IV. Time of imaging post radiopharmaceutical administration: 51 minutes Injection site: RIGHT HAND COMPARISON: CT chest w con* [id number] 09/26/2024, CTA chest 01/15/2021 FINDINGS: Tubes, catheters and devices: Catheters, tubes and devices: Ventriculoperitoneal shunt in the right neck and anterior chest and abdominal wall enters the peritoneal cavity on the right side above the level of the umbilicus terminates adjacent to the loop of ileum in the right lower abdomen. Inferior vena cava filter is in place. Brain: On the nondedicated limited brain images there is no abnormal distribution of the radiotracer in the infante and white matter. Pharynx: Normal distribution of the radiotracer in nasopharyngeal, and oropharyngeal structures. Larynx: Normal distribution of the radiotracer in laryngeal structures. Lungs, pleura and trachea: 1 cm solid nodule in the superior segment of the left lower lobe on axial image 87 measures 1.9 SUV. There is small subsegmental atelectasis in the left lower lobe and in the lingula. No pleural effusion. Heart: Normal physiologic uptake. There is no cardiomegaly. Minimal coronary artery calcification is present. There is no pericardial effusion. Mediastinal space: No abnormal uptake. Liver: Normal size without abnormal radiotracer uptake. Gallbladder and biliary ducts: No abnormal uptake. Status post cholecystectomy. Pancreas: Normal distribution of radiotracer. Spleen: Normal size without abnormal radiotracer uptake. Adrenal glands: No abnormal uptake. No nodules. Kidneys and ureters: Normal physiologic uptake. No hydronephrosis. Stomach and bowel: No abnormal uptake. There is extensive diverticulosis of the sigmoid colon. Vasculature: No abnormal uptake. Lymph nodes: No abnormal uptake. No lymphadenopathy in the head, neck, chest, abdomen, pelvis, and extremities. Skeleton: No abnormal uptake in the visualized axial and appendicular skeleton. Status post midline suboccipital craniectomy. Soft tissues: No abnormal uptake in the visualized head, neck, chest, abdomen, pelvis, and extremities. METRICS: Mediastinal blood pool maximal uptake is 2.6 SUV. Liver maximal uptake is 3.4 SUV. PET/PET skull to thigh INIT [id number] IMPRESSION: 1 cm solid nodule in the left lower lobe new since prior exam of 2021 measures 1.9 SUV which is below threshold of 2.5 SUV considered more specific for malignancy. No FDG avid lymphadenopathy in the chest. No suspicious FDG avid findings outside of the chest.
== END 2024-11-02 09:53 | disposition home or self-care (01) ==
LOC: RAD 09:52
PROVIDERS: PCP Family Medicine; Visit Provider Family Medicine
DX: R91.1 Solitary pulmonary nodule (principal)
CPT/HCPCS: 78815; A9552

== ENCOUNTER 2024-12-03 20:21 | Inpatient (IN) | payer OTHER, SELFPAY ==
[2024-12-03] VITALS (8 sets, daily range): BP systolic 112–140; BP diastolic 65–68; PULSE 100–109; RESP 17–22; TEMP 36.6–38.2; O2SAT 92–93; BMI 385.7
--- NOTE | 2024-12-03 20:22 | W.ED.SOB ---
HPI - SOB/Dyspnea General: Chief Complaint: Shortness of Breath/Dyspnea Stated Complaint: sob Time Seen by Provider: 12/03/24 20:21 History of Present Illness: HPI Narrative: 64-year-old female with history of COPD who presents to the emergency room with worsening shortness of breath. She has COPD and is on 5 L nasal cannula at all times at home. She has had increased cough. She saw her PCP today and started on Bactrim and given a steroid shot. She has a temp of 100.8 on presentation here. Vitals are otherwise normal and she is maintaining sats in the low 90s on 5 L when at rest but does drop with any activity. EMS reports this. Related Data Home Medications ?Medication ?Instructions ?Recorded ?Confirmed calcium 1 tab PO DAILY 01/16/21 12/03/24 glucosamine sulf dipot 1 cap PO DAILY 01/16/21 12/03/24 chlr,msm,chond 550 mg-C 30 mg-keiry 1 mg capsule (Glucosamine Chondroitin) guselkumab 100 mg/mL subcutaneous 100 mg SUBCUT .EVERY 2 MONTHS 01/16/21 12/03/24 auto-injector (Tremfya) loratadine 10 mg tablet (Claritin) 10 mg PO DAILY 01/16/21 12/03/24 turmeric 400 mg capsule 400 mg PO BID 01/16/21 12/03/24 vitamin E 1 cap PO DAILY 01/16/21 12/03/24 diphenhydramine HCl 25 mg tablet 25 mg PO DAILY PRN 02/24/21 12/03/24 (Benadryl Allergy) glucosamine sulf dipot 1 cap PO DAILY 07/03/21 12/03/24 chlr,msm,chond 550 mg-C 30 mg-keiry 1 mg capsule (Glucosamine Chondroitin) guselkumab 100 mg/mL subcutaneous 100 mg SUBCUT .EVERY 2 MONTHS 07/03/21 12/03/24 syringe (Tremfya) ipratropium bromide 0.02 % 0.5 mg inhalation DAILY 07/03/21 12/03/24 solution for inhalation turmeric 400 mg capsule 400 mg PO DAILY 07/03/21 12/03/24 vitamin E 1 cap PO DAILY 07/03/21 12/03/24 Previous Rx's ?Medication ?Instructions ?Recorded pantoprazole 40 mg tablet,delayed 40 mg PO DAILY #14 tabs 01/18/21 release (Protonix) ipratropium bromide 17 2 puff inhalation Q8H PRN 11/11/22 mcg/actuation HFA aerosol inhaler shortness of breath or wheezing (Atrovent HFA) #12.9 grams prednisone 10 mg tablet 10 mg PO DAILY #30 tabs 07/20/23 bupropion HCl 75 mg tablet 75 mg PO BID PRN anxiety #180 tabs 08/15/23 metoprolol tartrate 50 mg tablet See Rx Instructions .Route 02/08/24 .COMPLEX #270 tabs c-pap with oxygen at 5L #1 ea 04/20/24 lorazepam 1 mg tablet 1 mg PO DAILY PRN Restless Leg(S) 08/07/24 #30 tabs oxybutynin chloride 5 mg tablet See Rx Instructions .Route 09/04/24 .COMPLEX #90 tabs fluticasone furoate 200 See Rx Instructions .Route 09/19/24 mcg-vilanterol 25 mcg/dose .COMPLEX #60 ea inhalation powder (Breo Ellipta) ipratropium bromide 0.02 % See Rx Instructions .Route 10/11/24 solution for inhalation .COMPLEX 3 months #262.5 mL levothyroxine 25 mcg tablet See Rx Instructions .Route 10/30/24 .COMPLEX #90 tabs sertraline 100 mg tablet See Rx Instructions .Route 10/30/24 .COMPLEX #270 tabs azithromycin 250 mg tablet See Rx Instructions PO .COMPLEX #6 12/03/24 (Zithromax Z-Fernie) tabs prednisone 20 mg tablet 60 mg (3 x 20 mg) PO DAILY #20 tabs 12/03/24 sulfamethoxazole 800 1 tab PO BID #10 tabs 12/03/24 mg-trimethoprim 160 mg tablet (Bactrim DS) Allergies Allergy/AdvReac Type Severity Reaction Status Date / Time cephalexin Allergy Intermediate rash Verified 03/07/24 18:08 acetaminophen (From Tylenol) Allergy ALGY-Hives Verified 03/07/24 18:08 albuterol Allergy ADR-Depress Verified 03/07/24 18:08 ion codeine Allergy Unknown Verified 03/07/24 18:08 ibuprofen Allergy ALGY-Anaphy Verified 03/07/24 18:08 laxis Review of Systems Narrative: Constitutional symptoms: Negative except as documented in HPI. Skin symptoms: Negative except as documented in HPI. Eye symptoms: Negative except as documented in HPI. ENMT symptoms: Negative except as documented in HPI. Respiratory symptoms: Negative except as documented in HPI. Cardiovascular symptoms: Negative except as documented in HPI. Gastrointestinal symptoms: Negative except as documented in HPI. Genitourinary symptoms: Negative except as documented in HPI. Musculoskeletal symptoms: Negative except as documented in HPI. Neurologic symptoms: Negative except as documented in HPI. Psychiatric symptoms: Negative except as documented in HPI. Endocrine symptoms: Negative except as documented in HPI. PFSH ED PFSH: Medical History (Updated 12/03/24 @ 21:05 by Flory Storm MD) Chronic back pain COPD (chronic obstructive pulmonary disease) C. 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 Patient does not know when this was placed or indication for the filter. 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 Chronic hypoxemic respiratory failure COPD (chronic obstructive pulmonary disease) since 2005 Sleep apnea Acute dyspnea Hypoxemia Surgical History Status post cholecystectomy S/P TIE IN MACHINE OPERATOR shunt S/P IVC filter S/P IVC filter S/P TIE IN MACHINE OPERATOR shunt Hx of cholecystectomy History of appendectomy Social History Smoking and tobacco/nicotine status: never used tobacco/nicotine Quit status (tobacco/nicotine): has quit using Alcohol intake: unknown Substance/Drug Use: never Physical Exam Narrative: EXAM NARRATIVE: General: Alert, no acute distress. Skin: Warm, dry. Head: Normocephalic, atraumatic. Neck: Supple, trachea midline. Eye: Extraocular movements are intact. Ears, nose, mouth and throat: Oral mucosa moist. Cardiovascular: Regular rate and rhythm, Normal peripheral perfusion. Respiratory: coarse, scattered wheeze, mild increased wob. tachypnea, breath sounds are equal, Symmetrical chest wall expansion. Gastrointestinal: Soft, Nontender, Non distended Musculoskeletal: Normal ROM, no deformity. Neurological: Alert and oriented, No focal neurological deficit observed. Psychiatric: Cooperative, appropriate mood & affect. Course Vital Signs: Vital signs: Vital Signs Temperature 100.8 F H 12/03/24 20:21 Pulse Rate 100 12/03/24 21:30 Respiratory Rate 18 12/03/24 21:30 Blood Pressure 136/66 12/03/24 21:30 Pulse Oximetry 93 12/03/24 21:30 Oxygen Delivery Me thod Nasal Cannula 12/03/24 21:11 Oxygen Flow Rate 5 12/03/24 21:11 MDM - SOB/Dyspnea Medical Decision Making Differential diagnosis for patient with shortness of breath includes but is not limited to and based on the above HPI, review of systems and physical exam: Pneumonia. Bronchitis. Asthma or COPD with acute exacerbation. Acute coronary syndrome / GA. Pulmonary embolism. Anxiety. Congestive heart failure. Viral infections including influenza and Covid-19. Atrial fibrillation. Anxiety. Pleural effusion. Pneumothorax. Orders placed to evaluate differential diagnosis based on the above differential, HPI and physical exam Chest x-ray: No acute process. No infiltrate. No pneumothorax. This was reviewed and interpreted by myself the emergency room physician. I also reviewed the radiology report. Lab Review: Laboratory results were reviewed and interpreted by myself the emergency room physician. No leukocytosis. No anemia. No renal failure. Lactate is mildly elevated at 2.3. No signs of sepsis. No obvious pneumonia. I reviewed the patient's medical record. Reexamination: Patient still has some exertional dyspnea and family is quite concerned about her. They would like her to stay in the hospital overnight and she would qualify with her hypoxemia with exertion. Consultation: I spoke with Dr. Velasquez who is on-call for the hospitalist service who agrees to admission Assessment and plan: COPD exacerbation ?Ipratropium and azithromycin. Patient says that if she takes albuterol she will want to kill herself that it makes her very depressed. She does not think she can take Xopenex either. She also feels like azithromycin works best for her exacerbation so this was given as well -I discussed the patient with the hospitalist on-call who is admitting the patient. - Discussed findings and plan with patient. Answered any questions. - All laboratory values were reviewed and interpreted personally by myself, the ER physician - All imaging was reviewed and interpreted personally by myself, the ER physician. - Evaluation and treatment of this problem were appropriate in the emergency setting Lab Data 12/03/24 20:39 12/03/24 20:39 Labs/Radiology: Radiology Impressions Chest X-Ray 12/03/24 20:26 IMPRESSION: No definite acute infiltrate or effusion. Laboratory Results WBC 6.86 10^3/uL (3.29-11.43) 12/03/24 20:39 RBC 4.97 10^6/uL (3.85-5.65) 12/03/24 20:39 Hgb 14.40 g/dL (11.27-16.99) 12/03/24 20:39 Hct 46.4 % (36-47) 12/03/24 20:39 MCV 93.4 fl (85-98) 12/03/24 20: MCH 29.0 pg (27-33) 12/03/24 20:39 MCHC 31.0 g/dL (30-55) 12/03/24 20:39 RDW 13.7 % (12.1-15.1) 12/03/24 20: Plt Count 141 10^3/cmm (157-399) L 12/03/24 20:39 MPV 12.0 fL (7.4-10.4) H 12/03/24 20:39 Lymph % (Auto) Not Reportable 12/03/24 20:39 [place] % (Auto) Not Reportable 12/03/24 20:39 Lymph # (Auto) Not Reportable 12/03/24 20:39 [place] # (Auto) Not Reportable 12/03/24 20:39 Total Counted 100 (0-100) 12/03/24 20: Atypical Lymphs % 0.0 % (0-5) 12/03/24 20:39 Absolute Neutrophils 6.0 10^3/cmm (1.4-6.5) 12/03/24 20:39 Segmented Neutrophils 54 % 12/03/24 20:39 Band Neutrophils 33.0 % 12/03/24 20:39 Absolute Lymphocytes 0.3 10^3/cmm (1.2-3.4) L 12/03/24 20:39 Lymphocytes (Manual) 5 % 12/03/24 20:39 Monocytes (Manual) 0.0 % 12/03/24 20:39 Absolute Monocytes 0.0 10^3/cmm (0.1-0.6) L 12/03/24 20:39 Eosinophils (Manual) 0 % 12/03/24 20:39 Absolute Eosinophils 0.0 10^3/cmm (0.0-0.7) 12/03/24 20:39 Basophils (Manual) 0.0 % 12/03/24 20:39 Absolute Basophils 0.0 10^3/cmm (0.0-0.2) 12/03/24 20: Metamyelocytes 5.0 % 12/03/24 20: Myelocytes 3.0 % 12/03/24 20:39 Platelet Estimate Normal (Normal) 12/03/24 20: Giant Platelets 1+ H 12/03/24 20:39 Specimen Type Arterial 12/03/24 20:45 Sample Site Radial, right 12/03/24 20:45 ABG pH 7.35 (7.35-7.45) 12/03/24 20:45 ABG pCO2 47.9 mmHg (35-45) H 12/03/24 20:45 ABG pO2 69.8 mmHg (80.0-100.0) L 12/03/24 20:45 ABG PO2/FiO2 Ratio 174 12/03/24 20:45 ABG HCO3 26.4 mmol/L (22-26) H 12/03/24 20:45 ABG O2 Saturation 93.1 12/03/24 20:45 ABG Base Excess 0.1 mmol/L (-2.0-2.0) 12/03/24 20:45 [place] Test Pos 12/03/24 20:45 A-a O2 Gradient 20.6 mmHg (5-10) H 12/03/24 20:45 Hematocrit 45.3 % (37-47) 12/03/24 20:45 Hgb O2 Saturation 92.6 % (95-100) L 12/03/24 20:45 Carboxyhemoglobin 0.4 %THgb (0.4-20.1) 12/03/24 20:45 Methemoglobin 0.3 % (0.4-1.5) L 12/03/24 20:45 Total Hemoglobin 14.8 g/dL (12-16) 12/03/24 20:45 Sodium 143.0 mmol/L (131-143) 12/03/24 20:45 Potassium 3.7 mmol/L (3.5-5.0) 12/03/24 20:45 Glucose 144.0 mg/dL (70-115) H 12/03/24 20:45 Ionized Calcium 1.2 mmol/L (1.1-1.4) 12/03/24 20:45 O2 Delivery Device Nc 12/03/24 20:45 O2 Liters/Min 5.0 % 12/03/24 20:45 FiO2 40.0 % 12/03/24 20:45 Training And Development Rep ID [email or web address] 12/03/24 20:45 Sodium 142 mmol/L (136-145) 12/03/24 20:39 Potassium 4.1 mmol/L (3.5-5.1) 12/03/24 20:39 Chloride 104 mmol/L (98-107) 12/03/24 20:39 Carbon Dioxide 25 mmol/L (22-29) 12/03/24 20:39 Anion Gap 17.1 (5-19) 12/03/24 20:39 BUN 20 mg/dL (8-23) 12/03/24 20:39 Creatinine 0.8 mg/dL (0.5-0.9) 12/03/24 20:39 GFR Calculation 71.8 mL/min (90-130) L 12/03/24 20:39 Glucose 151 mg/dL (65-115) H 12/03/24 20:39 Calculated Osmolality 300 mOsm/kg (285-295) H 12/03/24 20:39 Lactic Acid 2.3 mmol/L (0.5-2.2) H 12/03/24 20:39 Calcium 9.7 mg/dL (8.5-10.5) 12/03/24 20:39 Total Bilirubin 0.3 mg/dL (0.15-1.2) 12/03/24 20:39 AST 18 U/L (0-32) 12/03/24 20:39 ALT 17 U/L (0-33) 12/03/24 20:39 Alkaline Phosphatase 69 U/L (35-105) 12/03/24 20:39 NT-Pro-B Natriuret Pep 56 pg/mL (0-125) 12/03/24 20:39 Total Protein 7.8 g/dL (6.6-8.7) 12/03/24 20:39 Albumin 4.0 g/dL (3.5-5.2) 12/03/24 20:39 Globulin 3.8 g/dL (1.3-4.6) 12/03/24 20:39 All radiology interpretation(s) finalized by discharge Discharge Plan Discharge Patient Disposition: Placed in Observation Clinical Impression: Acute exacerbation of chronic obstructive airways disease Discharge Diet: Usual diet Discharge Activity: Increase activity as tolerated Coding Level of Care Code ED Automobile Locator for [place]
--- NOTE | 2024-12-03 20:26 | XRR_ITS ---
PROCEDURE INFORMATION: Exam: XR Chest Exam date and time: 12/03/2024 8:35 PM Age: 64 years old Clinical indication: Shortness of breath; Prior surgery; Surgery date: 6+ months; Surgery type: Ivc filter, vpk teacher shunt TECHNIQUE: Imaging protocol: Radiologic exam of the chest. Views: 1 view. COMPARISON: CT chest w con* [id number] 09/26/2024 12:31 PM FINDINGS: Tubes, catheters and devices: Presumptive MINERALOGY TEACHER shunt overlying the right hemithorax. Lungs: Unremarkable. No consolidation. Pleural spaces: Unremarkable. No pleural effusion. No pneumothorax. Heart/Mediastinum: Unremarkable. No cardiomegaly. Bones/joints: Moderate degenerative changes of left glenohumeral joint. Mild degenerative changes of the bilateral AC joint. XR/XR chest 1V portable [id number] IMPRESSION: No definite acute infiltrate or effusion.
[2024-12-03] MEDS: methylPREDNISolone sod succ 125 mg/2 mL INJ IVP (20:49)
[2024-12-03 20:56] LABS: ABG PH Result 7.35 (7.35-7.45); Blood Gas Allen Test Pos; Blood Gas LPM 5.0 %; Blood Gas Operator Identificat gerca; Blood Gas Sample Site Radial, right; Blood Gas Sample Type Arterial; Ionized Calcium Level - ABG 1.2 mmol/L (1.1-1.4); Potassium Level - ABG 3.7 mmol/L (3.5-5.0); Sodium Level - ABG 143.0 mmol/L (131-143)
[2024-12-03 20:58] LABS: ABG PCO2 47.9 mmHg (35-45); Alveolar-Arterial Oxygen Gradi 20.6 mmHg (5-10); Arterial Blood Gas Hematocrit 45.3 % (37-47); Carboxyhemoglobin 0.4 %THgb (0.4-20.1); Glucose Level-ABG 144.0 mg/dL (70-115); HCO3 ABG 26.4 mmol/L (22-26); Methemoglobin 0.3 % (0.4-1.5); Oxygen Saturation ABG 93.1; PO2 ABG 69.8 mmHg (80.0-100.0); PO2 FiO2 Ratio Arterial Blood 174
[2024-12-03 21:04] LABS: Hematocrit 46.4 % (36-47); Hemoglobin 14.40 g/dL (11.27-16.99); Mean Corpuscular HGB Conc 31.0 g/dL (30-55); Mean Corpuscular Hemoglobin 29.0 pg (27-33); Mean Corpuscular Volume 93.4 fl (85-98); Platelet Count 141 10^3/cmm (157-399); Red Blood Count 4.97 10^6/uL (3.85-5.65); White Blood Count 6.86 10^3/uL (3.29-11.43)
[2024-12-03 21:09] LABS: Lactic Sepsis W/Reflex 2.3 mmol/L (0.5-2.2)
[2024-12-03 21:19] LABS: Alanine Aminotransferase 17 U/L (0-33); Albumin Level 4.0 g/dL (3.5-5.2); Alkaline Phosphatase 69 U/L (35-105); Anion Gap 17.1 (5-19); Aspartate Amino Transferase 18 U/L (0-32); Blood Urea Nitrogen 20 mg/dL (8-23); Calcium 9.7 mg/dL (8.5-10.5); Carbon Dioxide 25 mmol/L (22-29); Chloride 104 mmol/L (98-107); Creatinine Clr Calc Pharmacy 528.3591; Globulin 3.8 g/dL (1.3-4.6); Glucose 151 mg/dL (65-115); NT Pro B Type Natriuretic Pept 56 pg/mL (0-125); Osmolality Calculated 300 mOsm/kg (285-295); Potassium 4.1 mmol/L (3.5-5.1); Sodium 142 mmol/L (136-145); Total Protein 7.8 g/dL (6.6-8.7)
[2024-12-03 21:41] LABS: Absolute Segmented Neutrophil 3.7 10/cmm (1.6-7.1); Band Neutrophils Absolute 2.3 10^3/cmm (0.0-1.2); Slide Review Slide Review Perform; Total Cells Counted 100 (0-100)
[2024-12-03 21:42] LABS: Atypical Lymphs 0.0 % (0-5); Giant Platelets 1+
[2024-12-03 22:28] LABS: Reflex Lactate Order REFLEX LACTIC ORDERD
--- NOTE | 2024-12-03 22:56 | PM.HP ---
Providers/Chief Complaint Admitting Physician: Lorene Velasquez MD--- patient seen and evaluated before 12 midnight Primary Care Provider: Vel Powell MD Chief Complaint: sob History of Present Illness Radha Abarca (Jan) is a 64 year old female with COPD history and on chronic home oxygen at 5 L who had been having respiratory problem and had seen the primary care doctor on this day of presentation. Patient was started on antibiotics with Bactrim and some oral prednisone for care. Because she was still breathing very hard and the daughter brought her to the emergency room for further evaluation. By the time the patient got to the emergency room patient had gone up her oxygen requirement to a 6 L and then back down to baseline of 5 L. However would desaturate into the 80s on 5 L in the ED. Patient also was noted to have a temperature of 100.8 while in the ED. The daughter was very uncomfortable taking her home according to the ED report. Patient with a comorbid condition most likely will need further optimization for care because of much bronchial spasm. Patient had received some steroid in the emergency room. Patient has multiple allergies and does well with azithromycin and Bactrim but not any other antibiotics. Patient had no pneumonia. This patient cannot take albuterol either. Patient at this time is being admitted for a COPD exacerbation with bronchospasm leading to hypoxemia at baseline oxygen at 5 L at presentation Review of Systems Narrative: System review upon 10 organ reviewed were significant for respiratory distress over the past 1 week otherwise unremarkable. Medications/Allergies Home Medications ?Medication ?Instructions ?Recorded ?Confirmed ?Last Taken ?Type calcium 1 tab PO DAILY 01/16/21 12/03/24 Unknown History glucosamine sulf dipot 1 cap PO DAILY 01/16/21 12/03/24 Unknown History chlr,msm,chond 550 mg-C 30 mg-keiry 1 mg capsule (Glucosamine Chondroitin) guselkumab 100 mg/mL subcutaneous 100 mg SUBCUT .EVERY 2 MONTHS 01/16/21 12/03/24 Unknown History auto-injector (Tremfya) loratadine 10 mg tablet (Claritin) 10 mg PO DAILY 01/16/21 12/03/24 Unknown History turmeric 400 mg capsule 400 mg PO BID 01/16/21 12/03/24 Unknown History vitamin E 1 cap PO DAILY 01/16/21 12/03/24 Unknown History pantoprazole 40 mg tablet,delayed 40 mg PO DAILY #14 tabs 01/18/21 12/03/24 Unknown Rx release (Protonix) diphenhydramine HCl 25 mg tablet 25 mg PO DAILY PRN 02/24/21 12/03/24 Unknown History (Benadryl Allergy) glucosamine sulf dipot 1 cap PO DAILY 07/03/21 12/03/24 Unknown History chlr,msm,chond 550 mg-C 30 mg-keiry 1 mg capsule (Glucosamine Chondroitin) guselkumab 100 mg/mL subcutaneous 100 mg SUBCUT .EVERY 2 MONTHS 07/03/21 12/03/24 Unknown History syringe (Tremfya) ipratropium bromide 0.02 % 0.5 mg inhalation DAILY 07/03/21 12/03/24 Unknown History solution for inhalation turmeric 400 mg capsule 400 mg PO DAILY 07/03/21 12/03/24 Unknown History vitamin E 1 cap PO DAILY 07/03/21 12/03/24 Unknown History ipratropium bromide 17 2 puff inhalation Q8H PRN 11/11/22 12/03/24 Unknown Rx mcg/actuation HFA aerosol inhaler shortness of breath or wheezing (Atrovent HFA) #12.9 grams prednisone 10 mg tablet 10 mg PO DAILY #30 tabs 07/20/23 12/03/24 Unknown Rx bupropion HCl 75 mg tablet 75 mg PO BID PRN anxiety #180 tabs 08/15/23 12/03/24 Unknown Rx metoprolol tartrate 50 mg tablet See Rx Instructions .Route 02/08/24 12/03/24 Unknown Rx .COMPLEX #270 tabs c-pap with oxygen at 5L #1 ea 04/20/24 12/03/24 Unknown Rx lorazepam 1 mg tablet 1 mg PO DAILY PRN Restless Leg(S) 08/07/24 12/03/24 Unknown Rx #30 tabs oxybutynin chloride 5 mg tablet See Rx Instructions .Route 09/04/24 12/03/24 Unknown Rx .COMPLEX #90 tabs fluticasone furoate 200 See Rx Instructions .Route 09/19/24 12/03/24 Unknown Rx mcg-vilanterol 25 mcg/dose .COMPLEX #60 ea inhalation powder (Breo Ellipta) ipratropium bromide 0.02 % See Rx Instructions .Route 10/11/24 12/03/24 Unknown Rx solution for inhalation .COMPLEX 3 months #262.5 mL levothyroxine 25 mcg tablet See Rx Instructions .Route 10/30/24 12/03/24 Unknown Rx .COMPLEX #90 tabs sertraline 100 mg tablet See Rx Instructions .Route 10/30/24 12/03/24 Unknown Rx .COMPLEX #270 tabs azithromycin 250 mg tablet See Rx Instructions PO .COMPLEX #6 12/03/24 Unknown Rx (Zithromax Z-Fernie) tabs prednisone 20 mg tablet 60 mg (3 x 20 mg) PO DAILY #20 tabs 12/03/24 Unknown Rx sulfamethoxazole 800 1 tab PO BID #10 tabs 12/03/24 12/03/24 Unknown Rx mg-trimethoprim 160 mg tablet (Bactrim DS) Allergies Allergy/AdvReac Type Severity Reaction Status Date / Time cephalexin Allergy Intermediate rash Verified 03/07/24 18:08 acetaminophen (From Tylenol) Allergy ALGY-Hives Verified 03/07/24 18:08 albuterol Allergy ADR-Depress Verified 03/07/24 18:08 ion codeine Allergy Unknown Verified 03/07/24 18:08 ibuprofen Allergy ALGY-Anaphy Verified 03/07/24 18:08 laxis PFSH Acute PFSH: Medical History Chronic back pain COPD (chronic obstructive pulmonary disease) C. 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 Patient does not know when this was placed or indication for the filter. Intracranial hemorrhage 2011. Has LICENSED REACTOR OPERATOR shunt. Chronic hypoxemic respiratory failure COPD (chronic obstructive pulmonary disease) since 2005 Sleep apnea Acute dyspnea Hypoxemia Surgical History Status post cholecystectomy S/P LICENSED REACTOR OPERATOR shunt S/P IVC filter S/P IVC filter S/P LICENSED REACTOR OPERATOR shunt Hx of cholecystectomy History of appendectomy Social History Smoking and tobacco/nicotine status: never used tobacco/nicotine Quit status (tobacco/nicotine): has quit using Alcohol intake: unknown Substance/Drug Use: never Vitals/I&O/Wt Last Vital Signs Temp 100.8 F H 12/03/24 20:21 Pulse 101 H 08/25/25 22:33 Resp 18 12/03/24 22:33 BP 112/68 12/03/24 22:33 Pulse Ox 93 12/03/24 22:33 O2 Del Method Nasal Cannula 12/03/24 21:11 O2 Flow Rate 5 12/03/24 21:11 Weight last 48 hrs Weight 1117.198 kg Physical Exam Narrative: Generally patient is constantly coughing and congested and verbalized that he does not use anything for cough except for Mucinex. Patient with multiple allergies HEENT normocephalic/atraumatic neck neck is supple cardiovascular heart rate is regular 90s to 100. Lungs with coarse breath sounds. Abdomen soft nontender nondistended obese abdomen . Unremarkable extremities are intact no edema has good pulses neurology he has no focality. Lab studies were essentially unremarkable except for mild thrombocytopenia Data 12/03/24 20:39 12/03/24 20:39 A&P Assessment and plan 1. Acute exacerbation of chronic obstructive airways disease: 2. Dyspnea: 3. Cough: Plan: #1 COPD exacerbation with bronchospasm - Continue nebulizing treatment with Xopenex, patient does not tolerate albuterol - Initiated steroid therapy with Solu-Medrol 40 mg IV twice daily for an associated bronchial spasm - Will initiate for this patient antibiotics for associated bronchitis with Bactrim and azithromycin - Continue supportive care with patient home oxygen at 5 L at this time monitor closely for hypoxemia - Must continue to monitor and optimize - Will add Mucinex 1200 mg twice daily x 5 days only #2 Dyspnea - Secondary to COPD exacerbation with bronchospasm - Continue [place] for COPD exacerbation as noted above - Patient will only continue to get better hopefully - Patient is with comorbid condition for further optimization prior to discharge #3 Cough - Patient is with intractable cough showing much reactive airway process giving talking stimulates cough - Patient is allergic to almost everything but can do well with Mucinex - Continue nebulizing treatments and Mucinex as ordered and continue supportive oxygen supply Will continue to monitor and optimize #4 GI and DVT prophylaxis in place PDMP PDMP Reviewed: Not Reviewed Attestations Medical Necessity Statement*: Patient with COPD exacerbation and chronic home oxygen with ongoing cough and respiratory distress for 1 week in the setting of comorbid condition with this from inpatient care to optimize respiratory problem with bronchial spasm will need 2 midnights for care. Patient meets inpatient criteria Coding Level of Care Code 19394 Diagnoses Acute exacerbation of chronic obstructive airways disease J44.1 Dyspnea R06.00 Cough R05.9 Time Spent (min) 60
[2024-12-04] VITALS (15 sets, daily range): BP systolic 108–128; BP diastolic 58–87; PULSE 84–98; RESP 17–20; TEMP 36.4–37.1; O2SAT 92–97
[2024-12-04 01:05] LABS: Hematocrit 41.8 % (36-47); Hemoglobin 13.00 g/dL (11.27-16.99); Mean Corpuscular HGB Conc 31.1 g/dL (30-55); Mean Corpuscular Hemoglobin 29.0 pg (27-33); Mean Corpuscular Volume 93.1 fl (85-98); Nucleated Red Blood Cells % 0 %; Platelet Count 144 10^3/cmm (157-399); Red Blood Count 4.49 10^6/uL (3.85-5.65); White Blood Count 7.71 10^3/uL (3.29-11.43)
[2024-12-04 01:22] LABS: Lactic Acid level (Lactate) 2.3 mmol/L (0.5-2.2)
[2024-12-04 01:23] LABS: Alanine Aminotransferase 15 U/L (0-33); Albumin Level 3.6 g/dL (3.5-5.2); Alkaline Phosphatase 57 U/L (35-105); Anion Gap 14.1 (5-19); Aspartate Amino Transferase 16 U/L (0-32); Blood Urea Nitrogen 19 mg/dL (8-23); Calcium 9.2 mg/dL (8.5-10.5); Carbon Dioxide 26 mmol/L (22-29); Chloride 103 mmol/L (98-107); Creatinine Clr Calc Pharmacy 469.6526; Globulin 3.2 g/dL (1.3-4.6); Glucose 163 mg/dL (65-115); Magnesium 1.6 mg/dL (1.7-2.3); Osmolality Calculated 294 mOsm/kg (285-295); Potassium 4.1 mmol/L (3.5-5.1); Sodium 139 mmol/L (136-145); Total Protein 6.8 g/dL (6.6-8.7)
[2024-12-04 01:32] LABS: Slide Review Slide Review Perform
[2024-12-04] MEDS: methylPREDNISolone sod succ 40 mg/mL INJ IVP (08:30)
--- NOTE | 2024-12-04 08:50 | PM.PN ---
Subjective Subjective: the patient was seen in the morning and on 5L NC able to complete sentences having sob on exertion but no chest pain or heaviness Vitals/I&O/Wt Last Vital Signs Temp 98.1 F 12/04/24 07:13 Pulse 96 12/04/24 08:21 Resp 17 12/04/24 07:13 BP 116/65 12/04/24 08:28 Pulse Ox 93 12/04/24 08:21 O2 Del Method Nasal Cannula 12/04/24 08:21 O2 Flow Rate 5 12/04/24 08:21 12/03/24 12/04/24 12/04/24 22:59 06:59 14:59 Intake Total 250 / 250 480 / 480 Balance 250 / 250 480 / 480 Weight last 48 hrs Weight 95.935 kg Weight 110.762 kg Weight 1117.198 kg Physical Exam Narrative: General: Alert oriented x3, patient seen and on 5LNC HEENT: Normocephalic, atraumatic, EOMI, breathing with 20-22 RR Cardio: Regular rate rhythm, normal S1-S2, no murmurs rubs gallops, JVD normal Respiratory: Good bilateral air entry, with fine crackles on ascultation and on inspiration upto mid zones GI: Abdomen soft, nontender, nondistended, normoactive bowel sounds present all 4 quadrants, Neuro: Cranial nerves II to XII intact, strength 5/5, sensation 5/5, no gross neurological deficit Behavior: Appropriate and cooperative Extremities: mild trace pedal edema Skin: Visible skin intact, no rashes Data 12/04/24 00:42 12/04/24 00:42 A&P Assessment and plan 1. Acute exacerbation of chronic obstructive airways disease: 2. Dyspnea: 3. Cough: 4. Electrolyte imbalance risk: 5. Chronic back pain: 6. Sleep apnea: 7. COPD (chronic obstructive pulmonary disease): 8. Pneumonia: 9. COPD exacerbation: 10. Hypothyroidism: 11. Presence of IVC filter: 12. Depression: Plan: Acute COPD exacerbation - Continue nebulizing with ipratropium and budesonide since albuterol has allergy - steroids methylpred 40mg daily - doxycycline 100mg bid - follow sputum cultures - Continue supportive care with patient home oxygen at 5 L at this time monitor closely for hypoxemia - pulm referral at the time of discharge SOB on exertion? - manage COPD - Echo - seems in fluid congestion, 20mg IV lasix stat - hold fluids Hypothyroidism: continue home dose levothyroxine Electrolytes imbalance: replace Mg and P monitor it Sleep apnea: NIV at night Intracranial hemorrage with h/o TOE LASTER shunt in 2011 monitor for any neurological deterioration Depression: resume home medications sertraline and bupropion chronic back pain: adequate analgesia Presence of IVC filter? unsure in the documentation and patient is not aware of it? USG abdomen for IVC filter/ IVC evaluation VTE: enoxaparin 40mg daily PDMP PDMP Reviewed: Not Reviewed Attestations Medical Necessity Statement*: Radha Abarca (Jan)'s hospital stay will require greater than 2 midnights for management of sob, copd exacerbation and to rule out any cardiac pathology of sob Time Spent in Patient Care: 16 - 35 minutes (>than 50% of time spent in counselling and/or direct pt care on unit). Other Attestations: Patient condition has been discussed at length with the patient/family, I have independently reviewed the chart labs imaging and diagnostics and EKG. the goals of care and code status with the patient/family/NOK/legal provider service representative, and documented accordingly. The patient/family has been informed about the current condition and further plan of care. Agreed with the plan of care and understood without any language barrier. This documentation was created by [employer] paraprofessional aide teacher software. Every effort was made to ensure accuracy of paraprofessional aide teacher. Any obvious errors or omissions should be clarified with the author of the document. Coding Level of Care Code 05077 Diagnoses Acute exacerbation of chronic obstructive airways disease J44.1 Dyspnea R06.00 Cough R05.9 Electrolyte imbalance risk Z91.89 Chronic back pain M54.9; G89.29 Sleep apnea G47.30 COPD (chronic obstructive pulmonary disease) J44.9 Pneumonia J18.9 COPD exacerbation J44.1 Hypothyroidism E03.9 Presence of IVC filter Z95.828 Depression F32.A
--- NOTE | 2024-12-04 09:38 | PC.CHAP ---
Pastoral Care Encounter/Spiritual Assessment Type of Contact [] Declined oracle apex developer visit [] Patient/Family/Request visit [] Outpatient visit [] Follow-up visit [] Physician referral [] Code/Alert [] Routine visit [] Staff referral [] Actively dying [] Patient sleeping [] Family support [] [] Out of room [] Palliative care [] [x] Receiving care in room [] Pre-surgical visit [] Trauma [] Long length of stay [] ICU visit [] Other: Relational/Emotional Strength [] Patient feels connected with others/family/visitors/staff [] Distress [] Loneliness/isolation [] Abandonment Spirituality of Patient [] Person of Millie [] Attends Amish of their Millie [] Believes in Prayer [] Reads Bible or Muslim materials [] There are Spiritual issues to be addressed Chief Design Branch Interventions [] Prayer [] Active listening [] Non-anxious presence [] Spiritual/emotional support [] Crisis/trauma care [] Spiritual counseling [] Bereavement support [] Provided bereavement packet [] Provided Bible/devotional materials [] Provided toy/stuffed animal, coloring book to patient or family member [] Provided Communion [] Anointing/[place] [] Salvation [] Completed spiritual assessment [] Other: Impact on Illness or Injury [] Angry [] Fearful [] Anxious [] Often cries [] Exhaustion [] Unable to work [] Unable to attend zoroastrian [] Unable to walk/stand [] Unable to read [] Unable to drive [] Unable to eat/drink [] Unable to sleep [] Unable to be with family [] Patient intubated [] Other: Summary Time spent with patient
--- NOTE | 2024-12-04 09:50 | PC.NURSE ---
notified Dr. Barber patient had 40 of Solumedrol early this am. He stated not to give it is a duplicate order.
[2024-12-04] MEDS: doxycycline 100 MG in sodium chloride 0.9% (plus) 100 ML IV ×2 (09:52→20:48)
[2024-12-04 10:02] LABS: Glucose Urine UA Negative (Normal); Nitrate Urine Negative (Negative); Specific Gravity, Urine 1.019 (1.005-1.030)
[2024-12-04 10:04] LABS: Add Urine Microscopic? YES
--- NOTE | 2024-12-04 12:34 | USCV_ITS ---
Radha Abarca (Apr) Age: 64 Gender: F : 1960 Exam Date: 12/04/2024 14:50 Ordering Phys: Darrel Barber MD Technologist: RADHA Exam Location: [facility] [place] Indication: Sob BP: 116 / 67 HR: 84 Rhythm: Sinus Technical Quality: MEASUREMENTS (Male / Female) Normal Values 2D ECHO LV Diastolic Diameter PLAX 4.2 cm 4.2 - 5.9 / 3.9 - 5.3 cm IVS Diastolic Thickness 1.1 cm 0.6 - 1.0 / 0.6 - 0.9 cm IVS Systolic Thickness 1.8 cm LVPW Diastolic Thickness 1.4 cm 0.6 - 1.0 / 0.6 - 0.9 cm LVPW Systolic Thickness 1.7 cm LVOT Diameter 2.0 cm LV Ejection Fraction 2D Teich 52.8 % LV Ejection Fraction MOD 4C 67.2 % LV Ejection Fraction MOD 2C 59.1 % LV Ejection Fraction 2C AL 58.4 % LA Diameter 3.2 cm RA Systolic Volume 4C AL 25.8 ml RA Systolic Volume 4C MOD 25.3 ml LA Sys Volume AL 45.9 cm cubed LA Sys Volume Index AL 21.2 cm cubed/m squared Aorta at Sinotubular Diameter 2.7 cm M-MODE LA Ao Ratio MM 1.5 AV Cusp Separation MM 2.1 cm DOPPLER AV Peak Velocity 141.0 cm/s LVOT Peak Velocity 110.0 cm/s AV Area Cont Eq vti 2.6 cm squared AV Area Cont Eq pk 2.5 cm squared MV Peak Velocity 129.0 cm/s MV Area PHT 4.5 cm squared Mitral E to A Ratio 0.7 TR Peak Velocity 82.0 cm/s TR Peak Gradient 2.7 mmHg TV Peak E Velocity 66.0 cm/s PV Peak Velocity 88.0 cm/s FINDINGS Left Ventricle Normal left ventricular size and systolic function, EF 58%. Normal diastolic function. Mild left ventricular hypertrophy. Right Ventricle Normal right ventricular size and systolic function. Right Atrium Normal right atrial size. Left Atrium Normal left atrial size. Mitral Valve Mild mitral valve regurgitation. Aortic Valve No aortic valve stenosis. No aortic valve regurgitation. Tricuspid Valve No tricuspid valve regurgitation. Unable to calculate pulmonary pressure due to lack of TR jet. Pulmonic Valve Mild pulmonary valve regurgitation. Pericardium No pericardial effusion. Aorta Normal size aortic root and proximal ascending aorta. IVC IVC not well visualized CONCLUSIONS 1. Normal LV function, EF 58% 2. Normal RV size and function 3. No significant valvular abnornalities 4. Unable to calculate pulmonary pressure due to lack of TR jet. 5. Normal LV diastolic function 6. Mild left ventricular hypertrophy Bipin Black MD, FACC (Electronically Signed) Final Date: 04 December 2024 21:23 S
[2024-12-04] MEDS: magnesium sulfate premix 2 GM/50 ML PIGGYBACK IV (12:41)
[2024-12-04] MEDS: FUROsemide 10 mg/mL SDV 2mL 20 MG IVP (13:30)
[2024-12-05] VITALS (8 sets, daily range): BP systolic 119–136; BP diastolic 69–73; PULSE 76–86; RESP 16–18; TEMP 36.5–36.8; O2SAT 94–97
[2024-12-05 05:11] LABS: Hematocrit 43.9 % (36-47); Hemoglobin 13.50 g/dL (11.27-16.99); Mean Corpuscular HGB Conc 30.8 g/dL (30-55); Mean Corpuscular Hemoglobin 28.8 pg (27-33); Mean Corpuscular Volume 93.6 fl (85-98); Nucleated Red Blood Cells % 0 %; Platelet Count 165 10^3/cmm (157-399); Red Blood Count 4.69 10^6/uL (3.85-5.65); White Blood Count 9.01 10^3/uL (3.29-11.43)
[2024-12-05 05:31] LABS: Magnesium 2.3 mg/dL (1.7-2.3)
[2024-12-05 05:47] LABS: Alanine Aminotransferase 16 U/L (0-33); Albumin Level 3.7 g/dL (3.5-5.2); Alkaline Phosphatase 58 U/L (35-105); Anion Gap 14.3 (5-19); Aspartate Amino Transferase 18 U/L (0-32); Blood Urea Nitrogen 18 mg/dL (8-23); Calcium 9.0 mg/dL (8.5-10.5); Carbon Dioxide 27 mmol/L (22-29); Chloride 105 mmol/L (98-107); Creatinine Clr Calc Pharmacy 88.7052; Globulin 3.0 g/dL (1.3-4.6); Glucose 118 mg/dL (65-115); Osmolality Calculated 297 mOsm/kg (285-295); Potassium 4.3 mmol/L (3.5-5.1); Sodium 142 mmol/L (136-145); Total Protein 6.7 g/dL (6.6-8.7)
[2024-12-05] MEDS: methylPREDNISolone sod succ 40 mg/mL INJ IVP (08:31)
--- NOTE | 2024-12-05 09:53 | PC.SOCIAL ---
IMM Update pg 2 of IMM Updated and reviewed w/ patient. Copy provided and copy dated, initialed and placed.
--- NOTE | 2024-12-05 10:05 | PC.NURSE ---
Notified Dr. He patients IV infiltrated and patient refused another IV. Dr. He gave orders to change IV order to Doxycycline 100 mg PO BID.
--- NOTE | 2024-12-05 11:12 | P.DS_ITS ---
Discharge Providers Date of Admission: 12/03/24 22:03 Date of Discharge: December 05, 2024 Attending Provider at Admission: Lorene Velasquez MD Attending Provider at Discharge: Sarah He MD Primary Care Provider: Vel Powell MD Diagnoses at Discharge Discharge Diagnosis 1. Acute exacerbation of chronic obstructive airways disease: Details from hospital stay: Primary diagnosis. Treated with antibiotics and steroids along with breathing treatments. 2. Shortness of breath: Details from hospital stay: Related to above 3. Acute cough: Details from hospital stay: Related to above on top of chronic cough 4. Pneumonia: Details from hospital stay: Possible diagnosis at admission that was ruled out 5. Electrolyte imbalance risk: Details from hospital stay: Had hypomagnesemia and hypokalemia during admission that was addressed 6. Centrilobular emphysema: Details from hospital stay: Known chronic diagnosis 7. Acquired hypothyroidism: Details from hospital stay: On chronic levothyroxine. 8. Obstructive sleep apnea syndrome: Details from hospital stay: Uses CPAP at night. 9. Depression: Details from hospital stay: Chronically on sertraline, bupropion. 10. Presence of IVC filter: Details from hospital stay: Original indication of IVC filter not known. Seen on CT imaging in 2021 11. 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 Patient was started on antibiotics with Bactrim and some oral prednisone for care. Because she was still breathing very hard and the daughter brought her to the emergency room for further evaluation. By the time the patient got to the emergency room patient had gone up her oxygen requirement to a 6 L and then back down to baseline of 5 L. However would desaturate into the 80s on 5 L in the ED. Patient also was noted to have a temperature of 100.8 while in the ED. The daughter was very uncomfortable taking her home according to the ED report. Patient with a c omorbid condition most likely will need further optimization for care because of much bronchial spasm. Patient had received some steroid in the emergency room. Patient has multiple allergies and does well with azithromycin and Bactrim but not any other antibiotics. Patient had no pneumonia. This patient cannot take albuterol either. Patient at this time is being admitted for a COPD exacerbati on with bronchospasm leading to hypoxemia at baseline oxygen at 5 L at presentation Hospital Course Hospital Course Patient was admitted to a medical bed. She was treated empirically for possibility of pneumonia as well as acute COPD exacerbation. Primary concerns were degree of hypoxemia that she was having. Ultimately is felt she was likely having acute bronchospasm secondary to COPD exacerbation. She had low-grade fever. Imaging did not show any pulmonary infiltrate. Blood cultures were no growth at the time of discharge. She responded well to initiation of steroids, breathing treatments that she could tolerate in lieu of her allergies, initiation of antibiotics and addition of Mucinex. Home CPAP and oxygen therapy were continued. Plan is for follow-up to primary care provider. May consider referral to pulmonology if indicated on an outpatient basis. On the day of discharge she was breathing easier though not yet quite back to baseline. Requiring 4 L of oxygen by nasal cannula continuously which I reviewed with her. She historically does not do well with short courses of steroids so after discussion with her have written for taper. Discharge Data Studies Completed and Pending Completed Studies During Hospitalization Category Date Time Status XR chest 1V portable [id number] Stat Exams 12/03/24 20:26 Completed CV. echo complete* [id number] Routine Ultrasound 12/04/24 12:34 Completed Radiology Impressions Chest X-Ray 12/03/24 20:26 IMPRESSION: No definite acute infiltrate or effusion. Laboratory Results WBC 9.01 10^3/uL (3.29-11.43) 12/05/24 04:44 RBC 4.69 10^6/uL (3.85-5.65) 12/05/24 04:44 Hgb 13.50 g/dL (11.27-16.99) 12/05/24 04:44 Hct 43.9 % (36-47) 12/05/24 04:44 MCV 93.6 fl (85-98) 12/05/24 04:44 MCH 28.8 pg (27-33) 12/05/24 04:44 MCHC 30.8 g/dL (30-55) 12/05/24 04:44 RDW 13.6 % (12.1-15.1) 12/05/24 04:44 Plt Count 165 10^3/cmm (157-399) 12/05/24 04:44 MPV 11.8 fL (7.4-10.4) H 12/05/24 04:44 Neut % (Auto) 80.9 % 12/05/24 04:44 Lymph % (Auto) 8.7 % 12/05/24 04:44 [place] % (Auto) 7.8 % 12/05/24 04:44 Eos % (Auto) 0.3 % 12/05/24 04:44 Baso % (Auto) 0.6 % 12/05/24 04:44 Neut # (Auto) 7.30 10^3/uL (1.8-7.7) 12/05/24 04:44 Lymph # (Auto) 0.8 10^3/uL (0.8-4.8) 12/05/24 04:44 [place] # (Auto) 0.7 10^3/uL (0.2-0.9) 12/05/24 04:44 Eos # (Auto) 0.0 10^3/uL (0.0-0.8) 12/05/24 04:44 Baso # (Auto) 0.1 10^3/uL (0.0-0.1) 12/05/24 04:44 Nucleated RBC % (auto) 0 % 12/05/24 04:44 Total Counted 100 (0-100) 12/03/24 20:39 Atypical Lymphs % 0.0 % (0-5) 12/03/24 20:39 Absolute Neutrophils 6.0 10^3/cmm (1.4-6.5) 12/03/24 20:39 Segmented Neutrophils 54 % 12/03/24 20:39 Band Neutrophils 33.0 % 12/03/24 20:39 Absolute Lymphocytes 0.3 10^3/cmm (1.2-3.4) L 12/03/24 20:39 Lymphocytes (Manual) 5 % 12/03/24 20:39 Monocytes (Manual) 0.0 % 12/03/24 20:39 Absolute Monocytes 0.0 10^3/cmm (0.1-0.6) L 12/03/24 20:39 Eosinophils (Manual) 0 % 12/03/24 20:39 Absolute Eosinophils 0.0 10^3/cmm (0.0-0.7) 12/03/24 20:39 Basophils (Manual) 0.0 % 12/03/24 20:39 Absolute Basophils 0.0 10^3/cmm (0.0-0.2) 12/03/24 20:39 Metamyelocytes 5.0 % 12/03/24 20:39 Myelocytes 3.0 % 12/03/24 20: Nucleated RBCs # 0.0 /100WBC 12/05/24 04:44 Platelet Estimate Normal (Normal) 12/03/24 20:39 Giant Platelets 1+ H 12/03/24 20:39 Specimen Type Arterial 12/03/24 20:45 Sample Site Radial, right 12/03/24 20:45 ABG pH 7.35 (7.35-7.45) 12/03/24 20:45 ABG pCO2 47.9 mmHg (35-45) H 12/03/24 20:45 ABG pO2 69.8 mmHg (80.0-100.0) L 12/03/24 20:45 ABG PO2/FiO2 Ratio 174 12/03/24 20:45 ABG HCO3 26.4 mmol/L (22-26) H 12/03/24 20:45 ABG O2 Saturation 93.1 12/03/24 20:45 ABG Base Excess 0.1 mmol/L (-2.0-2.0) 12/03/24 20:45 [place] Test Pos 12/03/24 20:45 A-a O2 Gradient 20.6 mmHg (5-10) H 12/03/24 20:45 Hematocrit 45.3 % (37-47) 12/03/24 20:45 Hgb O2 Saturation 92.6 % (95-100) L 12/03/24 20:45 Carboxyhemoglobin 0.4 %THgb (0.4-20.1) 12/03/24 20:45 Methemoglobin 0.3 % (0.4-1.5) L 12/03/24 20:45 Total Hemoglobin 14.8 g/dL (12-16) 12/03/24 20:45 Sodium 143.0 mmol/L (131-143) 12/03/24 20:45 Potassium 3.7 mmol/L (3.5-5.0) 12/03/24 20:45 Glucose 144.0 mg/dL (70-115) H 12/03/24 20:45 Ionized Calcium 1.2 mmol/L (1.1-1.4) 12/03/24 20:45 O2 Delivery Device Nc 12/03/24 20:45 O2 Liters/Min 5.0 % 12/03/24 20:45 FiO2 40.0 % 12/03/24 20:45 Rn Transitional ID gerca 12/03/24 20:45 Sodium 142 mmol/L (136-145) 12/05/24 04:44 Potassium 4.3 mmol/L (3.5-5.1) 12/05/24 04:44 Chloride 105 mmol/L (98-107) 12/05/24 04:44 Carbon Dioxide 27 mmol/L (22-29) 12/05/24 04:44 Anion Gap 14.3 (5-19) 12/05/24 04:44 BUN 18 mg/dL (8-23) 12/05/24 04:44 Creatinine 0.7 mg/dL (0.5-0.9) 12/05/24 04:44 GFR Calculation 83.7 mL/min (90-130) L 12/05/24 04:44 Glucose 118 mg/dL (65-115) H 12/05/24 04:44 Calculated Osmolality 297 mOsm/kg (285-295) H 12/05/24 04:44 Lactic Acid 2.3 mmol/L (0.5-2.2) H 12/03/24 20:39 Lactic Acid (Sepsis) 2.3 mmol/L (0.5-2.2) H 12/04/24 00:00 Calcium 9.0 mg/dL (8.5-10.5) 12/05/24 04:44 Phosphorus 3.2 mg/dL (2.5-4.5) 12/05/24 04:44 Magnesium 2.3 mg/dL (1.7-2.3) 12/05/24 04:44 Total Bilirubin 0.2 mg/dL (0.15-1.2) 12/05/24 04:44 AST 18 U/L (0-32) 12/05/24 04:44 ALT 16 U/L (0-33) 12/05/24 04:44 Alkaline Phosphatase 58 U/L (35-105) 12/05/24 04:44 NT-Pro-B Natriuret Pep 56 pg/mL (0-125) 12/03/24 20:39 Total Protein 6.7 g/dL (6.6-8.7) 12/05/24 04:44 Albumin 3.7 g/dL (3.5-5.2) 12/05/24 04:44 Globulin 3.0 g/dL (1.3-4.6) 12/05/24 04:44 Urine Color Yellow (Yellow) 12/04/24 09:45 Urine Appearance Clear (CLEAR) 12/04/24 09:45 Urine pH 6.0 (5-7) 12/04/24 09:45 Ur Specific Tracy 1.019 (1.005-1.030) 12/04/24 09:45 Urine Protein Negative (Negative) 12/04/24 09:45 Urine Glucose (UA) Negative (Normal) 12/04/24 09:45 Urine Ketones Negative (Negative) 12/04/24 09:45 Urine Blood Negative (Negative) 12/04/24 09:45 Urine Nitrate Negative (Negative) 12/04/24 09:45 Urine Bilirubin Negative (Negative) 12/04/24 09:45 Urine Urobilinogen 0.2 mg/dL (Negative) 12/04/24 09:45 Ur Leukocyte Esterase Negative (Negative) 12/04/24 09:45 Urine RBC 0-2 /hpf (0-2) 12/04/24 09:45 Urine WBC 0-5 /hpf (0-5) 12/04/24 09:45 Ur Squamous Epith Cells 0-5 /hpf (0-5) 12/04/24 09:45 Amorphous Sediment Not Reportable 12/04/24 09:45 Urine Bacteria None seen /hpf (NONE) 12/04/24 09:45 Hyaline Casts 0.40 /lpf 12/04/24 09:45 Vitals Last Vital Signs Temp 97.8 F 12/05/24 11:10 Pulse 79 12/05/24 11:10 Resp 18 12/05/24 11:10 BP 126/69 12/05/24 11:10 Pulse Ox 94 12/05/24 11:10 O2 Del Method Nasal Cannula 12/05/24 11:10 O2 Flow Rate 5 12/05/24 07:19 Discharge Plan Discharge Patient Disposition: Home Condition: Stable Prescriptions: New azithromycin [Zithromax Z-Fernie] 250 mg tablet See Rx Instructions .ROUTE .COMPLEX Qty: 6 0RF Rx Instructions: For 250 mg dose pack: take 500 mg today (day 1), then 250 mg for 4 days (days 2-5) prednisone 20 mg tablet See Taper PO DAILY 7 Days Qty: 20 0RF Taper: predniSONE 60-10 60 mg Daily for 2 Days and 0 Hour 40 mg Daily for 3 Days and 0 Hour 20 mg Daily for 3 Days and 0 Hour 10 mg Daily for 5 Days and 0 Hour Rx Instructions: Take 3 days daily x 2 days, then 2 tabs daily x 3 days, then 1 tab daily x 3 days, then 1/2 tab daily x 5 days Continued diphenhydramine HCl [Benadryl Allergy] 25 mg tablet 25 mg PO DAILY PRN (Reason: Allergic Reaction) bupropion HCl 75 mg tablet 75 mg PO BID PRN (Reason: anxiety) Qty: 180 3RF sulfamethoxazole-trimethoprim [Bactrim DS] 800-160 mg tablet 1 tab PO BID Qty: 10 0RF metoprolol tartrate 50 mg tablet See Rx Instructions .ROUTE .COMPLEX Qty: 270 3RF Dose Instruction: TAKE 1 TABLET BY MOUTH TWICE DAILY Rx Instructions: TAKE 1 TABLET BY MOUTH TWICE DAILY (DME) c-pap with oxygen at 5L See Rx Instructions .Route .MEDSUPPLY Qty: 1 0RF Rx Instructions: As directed lorazepam 1 mg tablet 1 mg PO DAILY PRN (Reason: Restless Leg(S)) Qty: 30 5RF oxybutynin chloride 5 mg tablet See Rx Instructions .ROUTE .COMPLEX Qty: 90 3RF Dose Instruction: TAKE ONE TABLET BY MOUTH every evening FOR bladder spasm Rx Instructions: TAKE ONE TABLET BY MOUTH every evening FOR bladder spasm fluticasone furoate-vilanterol [Breo Ellipta] 200-25 mcg/dose blister with device See Rx Instructions .ROUTE .COMPLEX Qty: 60 11RF Dose Instruction: inhale one inhalation BY MOUTH DAILY Rx Instructions: inhale one inhalation BY MOUTH DAILY ipratropium bromide 0.02 % solution See Rx Instructions .ROUTE .COMPLEX 90 Days Qty: 262.5 11RF Dose Instruction: USE one vial PER nebulizer every EIGHT hours NEEDED FOR SHORTNESS OF BREATH or wheezing Rx Instructions: USE one vial PER nebulizer every EIGHT hours NEEDED FOR SHORTNESS OF BREATH or wheezing levothyroxine 25 mcg tablet See Rx Instructions .ROUTE .COMPLEX Qty: 90 3RF Dose Instruction: TAKE 1 TABLET BY MOUTH EVERY DAY Rx Instructions: TAKE 1 TABLET BY MOUTH EVERY DAY sertraline 100 mg tablet See Rx Instructions .ROUTE .COMPLEX Qty: 270 9RF Dose Instruction: TAKE 1 TABLET BY MOUTH EVERY DAY Rx Instructions: TAKE 1 TABLET BY MOUTH EVERY night loratadine [Claritin] 10 mg Tablet 10 mg PO DAILY Glucosamine Chondroitin 550-30-1 mg Capsule 1 cap PO DAILY fexofenadine [Analisa Allergy] 180 mg Tablet 180 mg PO DAILY calcium carbonate-vitamin D3 600 mg-5 mcg (200 unit) Tablet 1 tab PO DAILY vitamin B complex Tablet 1 tab PO DAILY vitamin E 268 mg (400 unit) Capsule 268 mg PO DAILY Tremfya 100 mg/mL syringe 100 mg SUBCUT Q60D Patient Comments: Patient states she has 2 syringes at home adn hasn't been compliant. She states she is to take the shot next week , its been a while and she has 2 in her refidgerator . calcium carbonate 500 mg calcium (1,250 mg) Tablet,Chewable 500 mg PO BID PRN (Reason: Stomach Upset) Discharge Order = DC NOW: Discharge Order (Routine); Ordered 12/05/24 Ordered By: Sarah He Referrals: Vel Powell MD [Primary Care Provider, [facility]] - 12/12/24 10:40 am Discharge Diet: Usual diet Discharge Activity: Increase activity as tolerated Patient Instructions: Prednisone (By mouth), Azithromycin (By mouth), COPD Stoplight, Opioid Safety, Pain Management, Patient Portal & Alec Instructions Activity Restrictions/Additional Instructions: You presented to the emergency room with difficulty breathing and increasing oxygen requirement. Ultimately felt to have an acute COPD exacerbation with acute bronchospasm. You were managed with steroids and antibiotics, increased oxygen flow and breathing treatments. At the time of discharge you were re quiring 4 L of oxygen by nasal cannula continuously. Current plan is for discharge with continued oral antibiotics. Continue the Bactrim previously prescribed along with azithromycin. I have written for a taper of prednisone as per our discussion given that you have not tolerated coming off of short courses of steroids previously. You can take [id number] Mucinex 1200 mg twice a day as an expectorant to help in the short-term. Recommend follow-up with primary care provider to ensure continued improvement. Other home medications can resume as previously prescribed. Discharge Attestations Time Spent in Discharge Care*: greater than 30 min Specific Discharge Activities: educating patient, discussing with pillowcase folder/social workers/dc planners, documenting/other paperwork and evaluating patient/reviewing data Status at Discharge: Cognitive status at discharge: cognitively intact , Behavioral status at discharge: cooperative , Overall status at discharge: patient is progressing back to baseline Quality Metrics Clinical Quality Measures [ No reported AMI, CVA or VTE this stay] Coding Level of Care Code 39889 Diagnoses Acute exacerbation of chronic obstructive airways disease J44.1 Shortness of breath R06.02 Dyspnea type: shortness of breath Acute cough R05.1 Cough type: acute Pneumonia J18.9 Electrolyte imbalance risk Z91.89 Centrilobular emphysema J43.2 COPD type: emphysema Emphysema type: centrilobular Acquired hypothyroidism E03.9 Hypothyroidism type: acquired Obstructive sleep apnea syndrome G47.33 Sleep apnea type: obstructive Depression F32.A Presence of IVC filter Z95.828 Chronic back pain M54.9; G89.29
--- NOTE | 2024-12-05 12:26 | PC.NURSE ---
Discussed discharge with patient. Went over COPD stop light, Medications such as Z-Fernie and Prednisone taper. Patient verbalized understanding. Home brought a take of O2 to patient for discharge.
== END 2024-12-05 12:38 | disposition home or self-care (01) | DRG 191 ==
LOC: ER 22:24 → MEDSURG 22:48
PROVIDERS: Student in an Organized Health Care Education/Training Program; Admitting Provider Internal Medicine; Emergency Provider Emergency Medicine; PCP Family Medicine; Visit Provider Hospitalist
DX: J44.1 Chronic obstructive pulmonary disease with (acute) exacerbation (principal); J96.11 Chronic respiratory failure with hypoxia; E83.42 Hypomagnesemia; E87.6 Hypokalemia; J43.2 Centrilobular emphysema; E03.9 Hypothyroidism, unspecified; G47.33 Obstructive sleep apnea (adult) (pediatric); F32.A Depression, unspecified; G89.29 Other chronic pain; M54.9 Dorsalgia, unspecified; Z95.828 Presence of other vascular implants and grafts; Z79.899 Other long term (current) drug therapy; Z99.81 Dependence on supplemental oxygen
CPT/HCPCS: 36415; 36600; 71045; 80051; 80053; 81001; 82330; 82805; 83605; 83735; 83880; 84100; 85007; 85025; 93306; 94640; 96365; 96372; 96375; 99285; J0456; J1650; J1938; J2919; J3475; J3490; J7030; J7050; J7626; J7644; J9999; Q0144

== ENCOUNTER → 2024-12-12 14:54 | Outpatient (BNVA) | payer OTHER, SELFPAY | PROVIDERS: PCP Family Medicine; Visit Provider Internal Medicine | DX: R91.1 Solitary pulmonary nodule (principal); G47.33 Obstructive sleep apnea (adult) (pediatric); Z99.89 Dependence on other enabling machines and devices; J43.2 Centrilobular emphysema; J96.11 Chronic respiratory failure with hypoxia; Z99.81 Dependence on supplemental oxygen; Z87.891 Personal history of nicotine dependence | CPT/HCPCS: 99205; Q3014 ==

== ENCOUNTER 2024-12-27 07:54 | Outpatient (CLI) | payer OTHER, SELFPAY ==
--- NOTE | 2024-12-27 08:15 | CT_ITS ---
WS: [id number] CT chest ION (PULM ONLY) 20462 HISTORY: Pre procedure TECHNIQUE: Axial imaging performed through the thorax. Coronal and sagittal reformats are submitted. All CT scans at [facility] use at least one of these dose optimization techniques: automated exposure control; mA and/or kV adjustment per patient size (includes targeted exams where dose is matched to clinical indication); or iterative reconstruction. CONTRAST: None DLP: 538.55 mGy COMPARISON: 09/26/2024, PET/CT 11/02/2024 Study performed for navigational bronchoscopy procedure. Reidentified is a well- circumscribed nodule previously described superior segment LEFT lower lobe abutting the fissure. Nodule measures 8 x 10 mm. There are new irregular nodules which have developed since 09/26/2024 and the PET/CT of 11/02/2024. Numerous bilateral irregular shaped nodules in multiple lobes. No significant distribution in the upper lung lake. These nodules range in size with the largest measuring 1 cm. Mild atherosclerosis aorta. Upper abdomen is negative. CT/CT chest ION (PULM ONLY) [id number] IMPRESSION: 1. CT performed prior to ion. 2. Previously described nodules are identified superior segment LEFT lower lob e abutting the fissure measures 8 x 10 mm. 3. There are new multiple irregular pulmonary nodules which have developed sin ce the PET/CT of 11/02/2024. Suspect an inflammatory process based on sudden indra earance. Due to the multiple nodules septic emboli should also be considered al regina with an infectious process. Anticipate follow-up imaging. 4. No adenopathy identified.
== END 2024-12-27 07:55 | disposition home or self-care (01) ==
LOC: RAD 07:56
PROVIDERS: PCP Family Medicine; Visit Provider Internal Medicine
DX: R91.1 Solitary pulmonary nodule (principal); R91.8 Other nonspecific abnormal finding of lung field
CPT/HCPCS: 71250

== ENCOUNTER 2025-01-18 11:16 | Outpatient (CLI) | payer OTHER, SELFPAY ==
--- NOTE | 2025-01-18 11:30 | PETR_ITS ---
PROCEDURE INFORMATION: Exam: PET/CT Skull Base to Mid-thigh Exam date and time: 01/18/2025 12:17 PM Age: 64 years old Clinical indication: Abnormal findings; Lung nodules on CT 12/27/24; Prior surgery; Surgery date: 6+ months; Surgery type: Ivc filter; Additional info: Worsening CT LABS AND CLINICAL REPORTS: Glucose: 96 mg/dl Treatment strategy for malignancy (PET staging): Restaging (PS) TECHNIQUE: Imaging protocol: Following at least four-hour fasting and following the injection of radiopharmaceutical, low dose CT images were obtained. Then, PET images were obtained. Attenuation corrected images were constructed using the CT scan. Fused images of PET and CT were reviewed. The standardized uptake values (SUV) reported below are maximum values within a region of interest, expressed in gm/ml. Exam includes orbital meatal line to mid-thigh. SUV normalization method: BodyWeight Radiopharmaceutical: 12.59 mCi F-18 FDG (Fluorodeoxyglucose), IV. Time of imaging post radiopharmaceutical administration: 46 minutes Injection site: left hand COMPARISON: 1. PT PET skull to thigh INIT [id number] 11/02/2024 11:[address] chest ION (PULM ONLY) [id number] 12/27/2024 8:[address] chest w con* [id number] 09/26/2024 12:31 PM 4. Report only from chest and abdominopelvic CTA dated 07/03/2021 FINDINGS: Brain: Visualized brain has normal physiologic uptake. Postsurgical changes from prior suboccipital craniectomy. Partially visualized right [employer]CH[employer]ICIAN shunt with catheter terminating in the left hemiabdomen. Pharynx: No abnormal uptake. Larynx: No abnormal uptake. Lungs, pleura and trachea: Stable 1 cm left lower lobe superior segment nodule on axial image 93 with stable very low-level metabolic activity showing SUV max 1.7, previously 1.9. Multiple additional pulmonary nodules that were new on chest CT from 12/27/2024 have resolved. Heart: Normal physiologic uptake. Mediastinal space: No abnormal uptake. Liver: No abnormal uptake. Gallbladder and biliary ducts: No abnormal uptake. Prior cholecystectomy. Pancreas: No abnormal uptake. Spleen: No abnormal uptake. Adrenal glands: No abnormal uptake. Kidneys and ureters: Normal physiologic uptake. Non FDG-avid left renal subcentimeter hypodensity too small to characterize is statistically likely benign and requires no dedicated imaging follow-up. Punctate left renal calcification without hydronephrosis. Stomach and bowel: No abnormal uptake. Colonic diverticulosis without findings of diverticulitis. Reproductive: Non FDG-avid asymmetric right uterine submucosal masslike soft tissue density measuring 3 cm on axial image 249. Vasculature: No abnormal uptake. Moderate systemic atherosclerotic calcification without aortic aneurysm. Infrarenal IVC filter in place. Lymph nodes: No abnormal uptake. No lymphadenopathy in the head, neck, chest, abdomen, pelvis, and extremities. Skeleton: Degenerative change along the spine, shoulders and sacroiliac joints. Soft tissues: No abnormal uptake in the visualized head, neck, chest, abdomen, pelvis, and extremities. Moderate fat containing lower right ventral abdominal wall hernia. Midline lower ventral abdominal wall postsurgical scarring. Stable minimally FDG avid dystrophic appearing sdpi-alssxjy-zige-right medial gluteus rola calcifications. METRICS: Mediastinal blood pool: SUV mean 2.5 Liver uptake: SUV mean 3.2 PET/PET skull to thigh SUBS [id number] IMPRESSION: 1. Stable 1 cm left lower lobe superior segment pulmonary nodule with stable very low-level metabolic activity favoring benignity. 2. Resolution of multiple additional pulmonary nodules from 12/27/[address] 3. 3 cm non FDG avid asymmetric right uterine submucosal masslike soft tissue density likely represents fibroid. 4. Additional chronic and incidental findings as above.
== END 2025-01-18 11:17 | disposition home or self-care (01) ==
LOC: RAD 11:19
PROVIDERS: PCP Family Medicine; Visit Provider Internal Medicine
DX: R91.8 Other nonspecific abnormal finding of lung field (principal); Z98.890 Other specified postprocedural states; R93.89 Abnormal findings on diagnostic imaging of other specified body structures; Z96.89 Presence of other specified functional implants; Z90.49 Acquired absence of other specified parts of digestive tract; N28.89 Other specified disorders of kidney and ureter; K57.90 Diverticulosis of intestine, part unspecified, without perforation or abscess without bleeding; M47.899 Other spondylosis, site unspecified; K43.9 Ventral hernia without obstruction or gangrene
CPT/HCPCS: 78815; A9552

== ENCOUNTER → 2025-02-04 10:38 | Outpatient (BNVA) | payer OTHER, SELFPAY | PROVIDERS: PCP Family Medicine; Referring Provider Internal Medicine; Visit Provider Internal Medicine | DX: R91.1 Solitary pulmonary nodule (principal); G47.33 Obstructive sleep apnea (adult) (pediatric); Z99.89 Dependence on other enabling machines and devices; J96.11 Chronic respiratory failure with hypoxia; Z99.81 Dependence on supplemental oxygen; R91.8 Other nonspecific abnormal finding of lung field; J44.9 Chronic obstructive pulmonary disease, unspecified; Z87.891 Personal history of nicotine dependence | CPT/HCPCS: 99214; Q3014 ==